=== PATIENT | female | born 1975 | race African-American/Black ===

== ENCOUNTER 2016-10-23 10:55 | Emergency (ER) | payer MEDICARE, MEDICAID ==
[~2016-10-23] VITALS: Ht 170.2 cm; Wt 135.6 kg
[~2016-10-23 10:55] MED LIST: ALBU17AE23 IH; ALPR.5T PO; ALPR0.254 PO; ALPR0.5T7 PO; AMLO10TA PO; AMLO10TA2 PO; AMLO10TA82 PO; AMOX-97 PO; ASCO1TAB39 PO; ASCO500T20 GT; AZIT-21 PO; CEPH500C PO; CIPR500T78 PO; CPR500T PO; CYCL10TA9 PO; DICL75TA2 PO; DOCU-143 PO; DOCU100C37 PO; ESCI10TA55 PO; FAMO-119 PO; FERR-57 PO; FERR160T6 PO; FERR325T74 PO; FLUO20CA25 PO; HYDR-1231 PO; HYDR-2997 PO; HYDR-3714 PO; HYDR-3812 PO; HYDR-690 PO; HYDR-700 PO; HYDR1CAP2 PO; HYDR25TA4 PO; HYOS0.1283 SL; IBP800T PO; IBUP-1780 PO; INSR1U SC; INSU100V30 SC; IPRA3AMP11 INH; KETO10TA PO; LACT1CAP61 PO; LEVO500T69 PO; LINA145C PO; LISI-552 PO; LISI10TA2 PO; LISI40TA PO; LORA10TA7 PO; MECL12.579 PO; MEDR10TA PO; MEDR10TA9 PO; MELA1TAB20 PO; MELO-195 PO; METF-144 PO; METO-270 PO; METO-272 PO; METO-333 PO; METR500T PO; MONT10TA24 PO; MTF500T PO; MTR500T PO; MULT-884 PO; MULT-985 PO; NAPR-243 PO; NAPR220T76 PO; OMEG1CAP24 PO; OXYC-197 PO; OXYC-202 PO; OXYC-465 PO; PANT40SU PO; PANT40TA3 PO; PNT40TEC PO; PRD10T PO; PRD20T PO; PROP1TAB77 PO; RANI150T90 PO; RT-ALBUINH INH; SUCR1ORA5 PO; SUCR1TAB36 PO; SULF-222 PO; SULF1TAB38 PO; TRAM50TA2 PO; TRM50T PO; [UNRECOGNIZED DRUG - OTHER] PO
--- OUTSIDE RECORDS SUMMARY | 2016-10-23 11:00 | XMS REPORT | Continuity of Care Document ---
Author Author [facility] Organization [facility] Address Unknown Phone Unavailable Care Team Providers Care After [employer] Program Director Name Role Phone MelonieAkash ho PCP [phone] Source Comments Some departments are not documenting in the electronic medical record. If you do not see the information that you expected, contact Release of Information in the Health Information Management department at [phone] for further assistance in locating additional records.[facility] Active Allergies and Adverse Reactions No Known Allergies Current Medications Prescription Sig. Disp. Refills Start End Date Status Date PROAIR HFA 90 INHALE 2 PUFFS BY MOUTH 6.7 g 5 01/10/20 Active mcg/actuation inhaler EVERY 4 HOURS NEEDED 12 escitalopram oxalate Take 10 mg by mouth Active (LEXAPRO) 10 mg tablet daily. hydrochlorothiazide Take 25 mg by mouth Active (HYDRODIURIL) 25 mg daily. tablet amLODIPine (NORVASC) 10 Take 10 mg by mouth Active mg tablet daily. ALPRAZolam (XANAX) 0.5 mg Take 0.5 mg by mouth Active tablet twice daily. metoprolol XL (TOPROL XL) Take 100 mg by mouth Active 100 mg tablet daily. traMADol (ULTRAM) 50 mg Take 50 mg by mouth every Active tablet 6 hours as needed for Pain. Lactobacillus rhamnosus Take 1 Cap by mouth as Active GG (LACTOBACILLUS directed daily with RHAMNOSUS (GG)) 15 breakfast. billion cell cpSP ascorbic acid (vitamin C) Take 500 mg by mouth Active (VITAMIN C) 500 mg tablet daily. ferrous sulfate (FEOSOL, Take 325 mg by mouth Active FEROSUL) 325 mg (65 mg twice daily. Take on an iron) tablet empty stomach at least 1 hour before or 2 hours after food. ibuprofen (ADVIL) 200 mg Take 800 mg by mouth Active tablet every 8 hours as needed for Pain. Take with food. senna (SENOKOT) 8.6 mg Take 2 Tabs by mouth Active tablet daily. polyethylene glycol 3350 Take 17 g by mouth daily Active (GLYCOLAX; MIRALAX) 17 as needed for gram/dose powder Constipation. oxyCODONE (ROXICODONE, Take 1-2 Tabs by mouth 30 Tab 0 05/19/20 Active OXY-IR) 5 mg tablet every 4 hours as needed 16 for Pain Indications: PAIN Earliest Fill Date: 05/19/16 Active Problems Problem Noted Date Iron deficiency anemia due to chronic blood loss 02/25/2016 Last Assessment & Plan: Mrs. Lujan is a 40 y.o. Female who presents today for follow-up of moderate microcytic iron deficiency anemia. She has a uterine fibroid that has been present for reportedly the past 20 years causing significant menstrual bleeding. She has postponed her hysterectomy with Dr. Steele to 05/18/16 and will need significant improvement on anemia prior to the surgery. She has been compliant with OTC ferrous sulfate 325mg/65mg PO TID, but experiencing significant constipation. Discussed with patient that she can reduce oral ferrous sulfate to BID and start stool softeners, Sennakot 8.6 gm BID and Miralax 17.5 gm once daily. Discussed that her ibuprofen intake may increase her risk of GI bleeding and recommend that she decreased to 800 twice daily if needed and increased Tramdol to every 8 hours. Hemoglobin mildly improved to 9.2 gm/dL and ferritin remained the same at 7 ng/dL. We will plan on administering iron dextran infusion in 1 week and re-assess in 10 days prior to scheduled surgery. However, it was discussed with patient that the peak effect on hemoglobin following iron dextran may take up to 4 weeks. Surgery may need to be delayed or patient may need a blood transfusion prior to surgery. Discussed indications and risks of iron dextran with patient, including hypersensitivity reaction. Von Willebrand disease was not detected in patient. Plan: 1. Iron dextran infusion 1,000 mg IV in 1 week. 2. Plan to re-evaluate labs in 10 days at patient's PCP office (patient lives in [place], [place]). 3. F/u with Dr. Steele to discuss if hemoglobin is adequate to proceed with surgery on 05/18. 4. Start sennakot 8.6 gm BID and miralax 17.5 gm once daily for constipation. 5. Decrease ibuprofen intake to 800 mg BID as needed and tramadol 50 mg every 8 hours for pain management. Patient agreed with plan of care and verbalized understanding. Morbid obesity due to excess calories (HCC) 02/04/2016 Tobacco use 02/04/2016 Dysmenorrhea 01/01/2016 Overview: Referred by Chava Loja Pt with monthly light periods but very painful Cramps and spotting that last for days after intercourse Hysteroscopy and GEA in Aug 2015 - polyp - no cancer TSH nl TVUS - uterus 10.5x7x7 with 'mass' 8x9x9, no mention of ovaries - office ultrasound 02/04/2016 Reports h/o laparoscopy aborted due to adhesions Discussed options of lupron, UAE, or hysterectomy Pt feels strongly that she desires RATLH/B salpingectomy Management impacted by obesity, smoking and abdominal adhesions. CBC 05/06 - referral to heme 02/19/2016 TVUS 02/17/16 - uterus 13cm, endo not seen well, with 8.3cm posterior fibroid, ovaries not seen 05/10/[address] Fernandez's office andJan 2016 D&C with benign tissue Did discuss BELAL at preop and pt okay with it - consent signed. 05/23/2016 S/p AMEE - benign 06/17/2016 Released back to activities Social History Tobacco Use Types Packs/Day Years Used Date Current Every Day Smoker Cigarettes 0.25 15 Smokeless Tobacco: Never Used Alcohol Use Drinks/Week oz/Week Comments Yes 1 Standard 0.6 drinks or equivalent Last Filed Vital Signs Vital Sign Reading Time Taken Blood Pressure 124/71 05/19/2016 7:10 AM CDT Pulse 65 05/19/2016 7:10 AM CDT Temperature 36.7 C (98.1 F) 05/19/2016 7:10 AM CDT Respiratory Rate 16 05/05/2016 11:29 AM CDT Height 1.707 m (5' 7.2") 06/16/2016 1:53 PM DUST MIXER Weight 139.663 kg (307 lb 14.4 06/16/2016 1:53 PM DUST MIXER oz) Body Mass Index 47.93 06/16/2016 1:53 PM DUST MIXER Oxygen Saturation 100% 05/19/2016 7:10 AM CDT Plan of Care Health Maintenance Due Date Last Done Comments Physical (Comprehensive) 1981 Exam Pertussis Vaccine 1985 Tetanus Vaccine 1991 Cervical Cancer Screening 1995 Influenza Vaccine 04/07/2016 Results from Last 3 Months Not on file
--- NOTE | 2016-10-23 11:11 | ED Upper Extremity ---
General Stated Complaint: SOB/L SIDE PAIN Source: patient Exam Limitations: no limitations History of Present Illness Time seen by provider: 11:10 Initial Comments To ER with reports of shortness of breath and left arm pain. This began about an hour or 2 ago while she was in the shower and she raised her left arm above her head. She had immediate pain to the medial aspect of the scapula on the left. This pain is worsened with any movement of the left arm at the shoulder and pain is worsened by deep breathing though she is not short of breath. Onset: just prior to arrival Severity: moderate Pain/Injury Location: left shoulder Method of Injury: twisted Modifying Factors: Worse With Movement Allergies and Home Medications Allergies Coded Allergies: No Known Drug Allergies (Verified , 07/06/15) Home Medications Alprazolam 0.5 Mg Tablet 0.5 MG PO BID (Reported) Amlodipine Besylate 10 Mg Tablet 10 MG PO DAILY (Reported) Escitalopram Oxalate 10 Mg Tablet 10 MG PO DAILY (Reported) Famotidine 20 Mg Tablet #30 20 MG PO BID Prescribed by: BRANDEN CARDONA on 04/19/16516 Hydrochlorothiazide 25 Mg Tablet 25 MG PO DAILY (Reported) Metoprolol Succinate 50 Mg Tab.er.24h 50 MG PO DAILY (Reported) Sucralfate 1 Gm Tablet #60 1 GM PO ACHS Prescribed by: BRANDEN CARDONA on 04/19/16516 Tramadol HCl 50 Mg Tablet #20 50-100 MG PO Q6H PRN PRN ABDOMINAL PAIN Prescribed by: BRANDEN CARDONA on 04/19/16516 Constitutional: see HPI EENTM: see HPI Respiratory: no symptoms reported Cardiovascular: see HPINo chest pain, No edema, No Hx of Intervention, No palpitations, No syncope, No vascular heart diseas, other (patient had a clean cardiac catheterization 2 years ago) Genitourinary: no symptoms reported Musculoskeletal: see HPI muscle pain Skin: no symptoms reported Psychiatric/Neurological: No Symptoms Reported Past Znwahcd-Pwxpux-Dhqanv Hx Patient Social History Former Smoker/When Quit: Aug 07, 2015 Recent Foreign Travel: No Contact w/Someone Who Travel: No Recent Hopitalizations: No Immunizations Up To Date Tetanus Booster (TDap): Unknown Date of Pneumonia Vaccine: Aug 07, 2013 Date of Influenza Vaccine: Apr 23, 2013 Seasonal Allergies Seasonal Allergies: No Surgeries HX Surgeries: Yes (uterine ablation, unsuccessful hysterectomy) Surgeries: Abdominal, Section, Orthopedic Respiratory Hx Respiratory Disorders: Yes (SARCOIDOSIS, TOBACCOISM) Respiratory Disorders: Asthma, Chronic Bronchitis Cardiovascular Hx Cardiac Disorders: Yes Cardiac Disorders: Coronary Artery Disease, Hypertension, Palpitations, Valvular Heart Disease Neurological Hx Neurological Disorders: No Reproductive System Hx Reproductive Disorders: Yes Female Reproductive Disorders: Menstrual Problems, Endometriosis, Ovarian Cyst Genitourinary Hx Genitourinary Disorders: No Gastrointestinal Hx Gastrointestinal Disorders: Yes (FATTY LIVER) Gastrointestinal Disorders: Gastroesophageal Reflux Musculoskeletal Hx Musculoskeletal Disorders: Yes (CHRONIC NECK PAIN, SARCOIDOSIS) Musculoskeletal Disorders: Arthritis Endocrine Hx Endocrine Disorders: Yes (BORDERLINE DIABETES DIET CONTROLLED; MORBID OBESITY) Endocrine Disorders: Diabetes, Non-Insulin dep HEENT HX ENT Disorders: No Cancer Hx Cancer: No Psychosocial Hx Psychiatric Problems: Yes Behavioral Health Disorders: Anxiety Integumentary HX Skin/Integumentary Disorder: No Blood Transfusions Hx Blood Disorders: Yes (ANEMIA) Adverse Reaction to a Blood Tr: No Family Medical History Significant Family History: Psychiatric Problems Family Medial History: Cancer 09 BROTHER, , Age:40's - 50, Onset:40's - 50 Cardiovascular disease 03 FATHER Diabetes mellitus 03 FATHER Family history: Diabetes mellitus 03 FATHER Family history: Hypertension 03 FATHER Hypertension 03 FATHER Physical Exam Vital Signs Vital Sign - Last 12Hours 10/23/16 11:10 Temp 98.7 Pulse 81 Resp 18 B/P 155/100 Pulse Ox 98 O2 Delivery Room Air Capillary Refill : General Appearance: WD/WN no apparent distress obese HEENT: PERRL/EOMI normal ENT inspection Neck: non-tender full range of motion Respiratory: normal breath sounds no respiratory distress no accessory muscle use Gastrointestinal: normal bowel sounds non tender soft Shoulder: normal inspection non-tender limited ROM pain Elbow/Forearm: normal inspection, non-tender Wrist: Yes normal inspection, Yes non-tender Hand: normal inspection, non-tender, no evidence of injury Neurologic/Psychiatric: alert normal mood/affect oriented x 3 Skin: normal color warm/dry Progress/Results/Core Measures Results/Orders Lab Results Laboratory Tests Test 10/23/16 11:36 Range/Units B-Type Natriuretic Peptide 14.2 <100.0 PG/ML Basophils # (Auto) 0.0 0.0-0.1 10^3/uL Basophils (%) (Auto) 0 0-10 % Eosinophils # (Auto) 0.2 0.0-0.3 10^3/uL Eosinophils (%) (Auto) 3 0-10 % Hematocrit 37 35-52 % Hemoglobin 11.3 L 11.5-16.0 G/DL Lymphocytes # (Auto) 1.6 1.0-4.0 X 10^3 Lymphocytes (%) (Auto) 33 12-44 % Mean Corpuscular Hemoglobin 24 L 25-34 PG Mean Corpuscular Hemoglobin Concent 31 L 32-36 G/DL Mean Corpuscular Volume 78 L 80-99 FL Mean Platelet Volume 8.2 7.4-10.4 FL Monocytes # (Auto) 0.5 0.0-1.0 X 10^3 Monocytes (%) (Auto) 9 0-12 % Neutrophils # (Auto) 2.6 1.8-7.8 X 10^3 Neutrophils (%) (Auto) 54 42-75 % Platelet Count 266 130-400 10^3/uL Red Blood Count 4.69 4.35-5.85 10^6/uL Red Cell Distribution Width 17.0 H 10.0-14.5 % Troponin I < 0.30 <0.30 NG/ML White Blood Count 4.8 4.3-11.0 10^3/uL My Orders Orders-MIQUEL CARDENAS APRN Chest Pa/Lat (2 View) (10/23/16 11:09) Ketorolac Injection (Toradol Injection) (10/23/16 11:15) Orphenadrine Injection (Norflex Injectio (10/23/16 11:15) Cbc With Automated Diff (10/23/16 11:31) BNP (10/23/16 11:31) Troponin I (10/23/16 11:31) Medications Given in ED Current Medications Medications Dose Ordered Sig/Beckie Route Start Time Stop Time Status Last Admin Dose Admin Ketorolac Tromethamine 60 mg ONCE ONCE IM 10/23/16 11:15 10/23/16 11:16 DC 10/23/16 11:18 60 MG Orphenadrine Citrate 60 mg ONCE ONCE IM 10/23/16 11:15 10/23/16 11:16 DC 10/23/16 11:18 60 MG Vital Signs/I&O Vital Sign - Last 12Hours 10/23/16 11:10 Temp 98.7 Pulse 81 Resp 18 B/P 155/100 Pulse Ox 98 O2 Delivery Room Air Diagnostic Imaging Diagonstic Imaging: Xray Plain Films/CT/US/NM/MRI: chest Comments NAME: JANEEN NICHOLAS I [facility] REC#: [id number] PT STATUS: REG ER : 1975 PHYSICIAN: MIQUEL CARDENAS APRN ADMIT DATE: 10/23/16/ER Draft Date of Exam:10/23/16 CHEST PA/LAT (2 VIEW) INDICATION: Shortness of air and left-sided chest pain. Pain radiates into the left scapular region. EXAMINATION: Two view chest dated 10/23/2016. COMPARISONS: 07/25/2016 FINDINGS: The heart is enlarged and there is pulmonary vascular congestion. There are increased interstitial markings throughout both lungs similar to prior imaging with findings of pulmonary edema noted. No focal consolidations or effusions are seen. No pneumothorax. IMPRESSION: 1. Pulmonary edema. Dictated on workstation # [id number] Dict: 10/23/16 1126 Trans: 10/23/16 1129 [id number] Interpreted by: LEONIDES YBARRA MD Electronically signed by: Departure Communication Progress Notes Radiology interpretation states pulmonary edema on chest x-ray. However this patient does not have pulmonary edema, they are seeing her sarcoidosis. Impression Impression: Primary Impression: Musculoskeletal back pain Disposition: 01 HOME, SELF-CARE Condition: Stable Departure-Patient Inst. Decision time for Depature: 12:23 Referrals: RALPH MCGEE DO (PCP/Family) Primary Care Physician Patient Instructions: Muscle Strain Add. Discharge Instructions: 1. Medication as directed 2. Return to ER for any worsening symptoms or other concerns such as fevers, shortness of breath or worsening pain Scripts Cyclobenzaprine HCl 5 Mg Tablet5 Mg PO BID PRN PAIN #14 TAB Prov:MIQUEL CARDENAS CARBONIZER 10/23/16 Naproxen (Naprosyn)500 Mg Vxtten403 Mg PO BID PRN PRN PAIN #14 TAB Prov:MIQUEL CARDENAS CARBONIZER 10/23/16 MIQUEL CRADENAS APRN Oct 23, 2016 11:11
[2016-10-23] MEDS ORDERED: KETOROLAC 60 MG/2 ML VIAL IM ONE (11:15)
[2016-10-23] MEDS ORDERED: ORPHENADRINE 60 MG/2 ML (NORFLEX) AMP IM ONE (11:15)
--- NOTE | 2016-10-23 11:30 | Diagnostic Imaging Report ---
INDICATION: Shortness of air and left-sided chest pain. Pain radiates into the left scapular region. EXAMINATION: Two view chest dated 10/23/2016. COMPARISONS: 07/25/2016 FINDINGS: The heart is enlarged and there is pulmonary vascular congestion. There are increased interstitial markings throughout both lungs similar to prior imaging with findings of pulmonary edema noted. No focal consolidations or effusions are seen. No pneumothorax. IMPRESSION: 1. Pulmonary edema. Dictated by: Dictated on workstation # [id number]
[2016-10-23 11:46] LABS: BASOPHILS % (AUTO) 0 % (0-10); EOSINOPHILS # (AUTO) 0.2 10^3/uL (0.0-0.3); EOSINOPHILS % (AUTO) 3 % (0-10); LYMPHOCYTES # (AUTO) 1.6 X 10^3 (1.0-4.0); LYMPHOCYTES % (AUTO) 33 % (12-44); MEAN CORPUSCULAR HEMOGLOBIN 24 PG (25-34); MEAN CORPUSCULAR HGB CONC 31 G/DL (32-36); MEAN CORPUSCULAR VOLUME 78 FL (80-99); MEAN PLATELET VOLUME 8.2 FL (7.4-10.4); MONOCYTES # (AUTO) 0.5 X 10^3 (0.0-1.0); MONOCYTES % (AUTO) 9 % (0-12); NEUTROPHILS # (AUTO) 2.6 X 10^3 (1.8-7.8); NEUTROPHILS % (AUTO) 54 % (42-75); PLATELET COUNT 266 10^3/uL (130-400); RED BLOOD COUNT 4.69 10^6/uL (4.35-5.85); WHITE BLOOD COUNT 4.8 10^3/uL (4.3-11.0)
[2016-10-23] MEDS ORDERED: CYCL5TAB PO ×2 (12:25→12:28)
[2016-10-23] MEDS ORDERED: NAPR500T PO ×2 (12:25→12:28)
[2016-10-23 12:26] VITALS: BP 145/76
== END 2016-10-23 12:26 | disposition home or self-care (01) ==
LOC: EDUNIT# 10:55 → ER 10:56
DX: M25.512 Pain in left shoulder (principal); D86.0 Sarcoidosis of lung; I10 Essential (primary) hypertension; E11.9 Type 2 diabetes mellitus without complications; I25.10 Atherosclerotic heart disease of native coronary artery without angina pectoris; Z79.899 Other long term (current) drug therapy
CPT/HCPCS: 36415; 71020; 83880; 84484; 85025; 96372

== ENCOUNTER → 2016-10-31 | Outpatient (CLI) | payer MEDICARE, MEDICAID ==
[~2016-10-31] MED LIST changes: +CYCL5TAB PO; +NAPR500T PO
--- NOTE | 2016-10-31 20:04 | Diagnostic Imaging Report ---
Bilateral screening mammogram The current study was also evaluated with a Computer Aided Detection (CAD) system. Indication: Screening. No current complaints stated on the questionnaire. COMPARISON: 10/02/15. FINDINGS: The breasts are composed of scattered fibroglandular densities. There are scattered benign calcifications. Allowing for technique and positional differences, no suspicious change is seen. IMPRESSION: No significant change. ACR BI-RADS Category 2: Benign findings. Result letter will be mailed to the patient. Note: At least 10% of breast cancer is not imaged by mammography. Dictated by: Dictated on workstation # [id number]
== END ==
LOC: RAD 10:32
PROVIDERS: ATTEND Family Medicine
DX: Z12.31 Encounter for screening mammogram for malignant neoplasm of breast (principal)
CPT/HCPCS: 77067

== ENCOUNTER 2017-01-09 17:36 | Emergency (ER) | payer MEDICARE, MEDICAID ==
[~2017-01-09] VITALS: Ht 167.6 cm; Wt 142.9 kg
[2017-01-09 18:05] LABS: BILIRUBIN,URINE NEGATIVE (NEGATIVE); KETONES,URINE NEGATIVE (NEGATIVE); LEUKOCYTE ESTERASE ,URINE 1+ (NEGATIVE); NITRITE,URINE NEGATIVE (NEGATIVE); PH,URINE 6 (5-9); PROTEIN,URINE 1+ (NEGATIVE); UROBILINOGEN,URINE NORMAL (NORMAL)
[2017-01-09 18:13] LABS: WBC,URINE 0-2 /HPF
[2017-01-09 18:37] LABS: BASOPHILS % (AUTO) 0 % (0-10); EOSINOPHILS # (AUTO) 0.2 10^3/uL (0.0-0.3); EOSINOPHILS % (AUTO) 3 % (0-10); LYMPHOCYTES # (AUTO) 1.6 X 10^3 (1.0-4.0); LYMPHOCYTES % (AUTO) 34 % (12-44); MEAN CORPUSCULAR HEMOGLOBIN 25 PG (25-34); MEAN CORPUSCULAR HGB CONC 31 G/DL (32-36); MEAN CORPUSCULAR VOLUME 81 FL (80-99); MEAN PLATELET VOLUME 8.8 FL (7.4-10.4); MONOCYTES # (AUTO) 0.4 X 10^3 (0.0-1.0); MONOCYTES % (AUTO) 9 % (0-12); NEUTROPHILS # (AUTO) 2.5 X 10^3 (1.8-7.8); NEUTROPHILS % (AUTO) 53 % (42-75); PLATELET COUNT 254 10^3/uL (130-400); RED CELL DISTRIBUTION WIDTH 16.2 % (10.0-14.5); WHITE BLOOD COUNT 4.7 10^3/uL (4.3-11.0)
[2017-01-09 18:49] LABS: ALANINE AMINOTRANSFERASE 16 U/L (0-55); ALBUMIN 3.6 G/DL (3.2-4.5); ANION GAP 8 MMOL/L (5-14); ASPARTATE AMINO TRANSFERASE 13 U/L (5-34); BILIRUBIN,TOTAL 0.3 MG/DL (0.1-1.0); BLOOD UREA NITROGEN 13 MG/DL (7-18); BUN/CREATININE RATIO 16; CALCIUM 9.2 MG/DL (8.5-10.1); CARBON DIOXIDE 28 MMOL/L (21-32); CHLORIDE 106 MMOL/L (98-107); CREATININE SERUM 0.82 MG/DL (0.60-1.30); GFR ESTIMATED > 60; GLUCOSE 147 MG/DL (70-105); LIPASE 10 U/L (8-78); POTASSIUM 3.9 MMOL/L (3.6-5.0); SODIUM 142 MMOL/L (135-145); TOTAL PROTEIN 7.5 G/DL (6.4-8.2)
--- NOTE | 2017-01-09 19:11 | Diagnostic Imaging Report ---
INDICATION: Left flank pain x2-3 weeks. TECHNIQUE: Supine and upright view of the abdomen 7:08 PM CORRELATION STUDY: None FINDINGS: Imaging of the abdomen demonstrates the bowel gas pattern to be unremarkable and without evidence for obstruction. No significant differential air-fluid levels. Mild severity fecal retention. No evidence for free air. No pathologic intraabdominal calcifications. Visualized lung bases relatively clear. IMPRESSION: 1. Mild severity fecal retention. Nonobstructive appearing bowel gas pattern. Dictated by: Dictated on workstation # [id number]
--- NOTE | 2017-01-09 19:24 | ED Abdominal Pain ---
General Chief Complaint: General Problems/Pain Stated Complaint: LT SIDE PAIN Nursing Triage Note: PT AMBULATED TO ROOM. PT STATES HER LEFT SIDE IS SORE. PT HAS BEEN TAKING MUSCLE RELAXERS THAT SHE WAS PRESCRIBED FOR A WEEK AND HAS HAD NO EFFECT SINCE. Sepsis Screen: No Definite Risk Source of Information: Patient Exam Limitations: No Limitations History of Present Illness Time Seen By Provider: 17:43 Initial Comments This 41-year-old woman presents to the emergency room with complaints of left flank pain for the past 3-4 weeks' intensifying over time. She denies any nausea, vomiting, diarrhea, fever, or dysuria. She comments urine has been dark. She also admits to constipation. She does not think her pain is related to constipation. Pain is rated as 7/10 and is worse with movements. Patient has a history of sarcoidosis. Patient also complains of a tender left submandibular gland started just today. Allergies and Home Medications Allergies Coded Allergies: No Known Drug Allergies (Verified , 07/06/15) Home Medications Alprazolam 0.5 Mg Tablet, 0.5 MG PO BID, (Reported) Amlodipine Besylate 10 Mg Tablet, 10 MG PO DAILY, (Reported) Cyclobenzaprine HCl 5 Mg Tablet, 5 MG PO BID PRN for PAIN, #14 . Prescribed by: MIQUEL CARDENAS on 10/23/16 1228 Escitalopram Oxalate 10 Mg Tablet, 10 MG PO DAILY, (Reported) Famotidine 20 Mg Tablet, 20 MG PO BID, #30 Ref 0 Prescribed by: BRANDEN ACRDONA on 04/19/16516 Hydrochlorothiazide 25 Mg Tablet, 25 MG PO DAILY, (Reported) Metoprolol Succinate 50 Mg Tab.er.24h, 50 MG PO DAILY, (Reported) Naproxen 500 Mg Tablet, 500 MG PO BID PRN PRN for PAIN, #14 . Prescribed by: MIQUEL CARDENAS on 10/23/16 1228 Sucralfate 1 Gm Tablet, 1 GM PO ACHS, #60 Ref 0 Prescribed by: BRANDEN CARDONA on 04/19/16516 Tramadol HCl 50 Mg Tablet, 50-100 MG PO Q6H PRN for ABDOMINAL PAIN, #20 Ref 0 Prescribed by: BRANDEN CARDONA on 04/19/16516 Review of Systems Constitutional: no symptoms reported EENTM: No Symptoms Reported Respiratory: No Symptoms Reported Cardiovascular: No Symptoms Reported Gastrointestinal: See HPI Genitourinary: No Symptoms Reported Musculoskeletal: no symptoms reported Skin: no symptoms reported Psychiatric/Neurological: No Symptoms Reported Endocrine: No Symptoms Reported Hematologic/Lymphatic: See HPI Past Fxctfga-Wooryy-Rdzfob Hx Patient Social History Alcohol Use: Denies Use Recreational Drug Use: No Smoking Status: Current Everyday Smoker Type Used: Cigarettes Former Smoker/When Quit: Aug 07, 2015 2nd Hand Smoke Exposure: Yes Recent Foreign Travel: No Contact w/Someone Who Travel: No Recent Infectious Disease Expo: No Recent Hopitalizations: No Immunizations Up To Date Tetanus Booster (TDap): Unknown Date of Pneumonia Vaccine: Aug 07, 2013 Date of Influenza Vaccine: Apr 23, 2013 Seasonal Allergies Seasonal Allergies: No Surgeries HX Surgeries: Yes (uterine ablation, unsuccessful hysterectomy) Surgeries: Abdominal (hernia), Section, Hysterectomy, Orthopedic ( left shoulder) Respiratory Hx Respiratory Disorders: Yes (SARCOIDOSIS, TOBACCOISM) Respiratory Disorders: Asthma, Chronic Bronchitis Cardiovascular Hx Cardiac Disorders: Yes Cardiac Disorders: Coronary Artery Disease, Hypertension, Palpitations, Valvular Heart Disease Neurological Hx Neurological Disorders: No Reproductive System Hx Reproductive Disorders: Yes Female Reproductive Disorders: Menstrual Problems, Endometriosis, Ovarian Cyst Genitourinary Hx Genitourinary Disorders: No Gastrointestinal Hx Gastrointestinal Disorders: Yes (FATTY LIVER) Gastrointestinal Disorders: Gastroesophageal Reflux Musculoskeletal Hx Musculoskeletal Disorders: Yes (CHRONIC NECK PAIN, SARCOIDOSIS) Musculoskeletal Disorders: Arthritis Endocrine Hx Endocrine Disorders: Yes (BORDERLINE DIABETES DIET CONTROLLED; MORBID OBESITY) Endocrine Disorders: Diabetes, Non-Insulin dep HEENT HX ENT Disorders: No Cancer Hx Cancer: No Psychosocial Hx Psychiatric Problems: Yes Behavioral Health Disorders: Anxiety Integumentary HX Skin/Integumentary Disorder: No Blood Transfusions Hx Blood Disorders: Yes (ANEMIA) Adverse Reaction to a Blood Tr: No Family Medical History Significant Family History: Psychiatric Problems Family Medial History: Cancer 09 BROTHER, , Age:40's - 50, Onset:40's - 50 Cardiovascular disease 03 FATHER Diabetes mellitus 03 FATHER Family history: Diabetes mellitus 03 FATHER Family history: Hypertension 03 FATHER Hypertension 03 FATHER Physical Exam Vital Signs VS - Last 72 Hours, by Label 01/09/17 01/09/17 18:03 19:37 Temp 98.1 97.9 Pulse 89 83 Resp 16 20 B/P (MAP) 140/103 Pulse Ox 97 97 O2 Delivery Room Air Capillary Refill : Less Than 3 Seconds General Appearance: WD/WN, no apparent distress, obese HEENT: PERRL/EOMI, normal ENT inspection, pharynx normal, TM abnormal (R) ( mildly erythematous) Neck: supple, lymphadenopathy (L) (submandibular small tender lymph node) Respiratory: lungs clear, normal breath sounds, no respiratory distress, no accessory muscle use Cardiovascular: regular rate, rhythm, no edema, no murmur Gastrointestinal: normal bowel sounds, soft, tenderness (left flank) Extremities: normal inspection, no pedal edema Neurologic/Psychiatric: semi driver II-XII nml as tested, no motor/sensory deficits, alert, normal mood/affect, oriented x 3 Skin: normal color, warm/dry Progress/Results/Core Measures Results/Orders Lab Results Laboratory Tests Test 01/09/17 17:56 01/09/17 18:18 Range/Units Urine Color YELLOW Urine Clarity CLEAR Urine pH 6 5-9 Urine Specific [place] 1.020 1.016-1.022 Urine Protein 1+ H NEGATIVE Urine Glucose (UA) NEGATIVE NEGATIVE Urine Ketones NEGATIVE NEGATIVE Urine Nitrite NEGATIVE NEGATIVE Urine Bilirubin NEGATIVE NEGATIVE Urine Urobilinogen NORMAL NORMAL MG/DL Urine Leukocyte Esterase 1+ H NEGATIVE Urine RBC (Auto) 1+ H NEGATIVE Urine RBC 0-2 /HPF Urine WBC 0-2 /HPF Urine Squamous Epithelial Cells 2-5 /HPF Urine Crystals NONE /LPF Urine Bacteria NONE /HPF Urine Casts NONE /LPF Urine Mucus NEGATIVE /LPF Urine Culture Indicated NO White Blood Count 4.7 4.3-11.0 10^3/uL Red Blood Count 4.50 4.35-5.85 10^6/uL Hemoglobin 11.4 L 11.5-16.0 G/DL Hematocrit 36 35-52 % Mean Corpuscular Volume 81 80-99 FL Mean Corpuscular Hemoglobin 25 25-34 PG Mean Corpuscular Hemoglobin Concent 31 L 32-36 G/DL Red Cell Distribution Width 16.2 H 10.0-14.5 % Platelet Count 254 130-400 10^3/uL Mean Platelet Volume 8.8 7.4-10.4 FL Neutrophils (%) (Auto) 53 42-75 % Lymphocytes (%) (Auto) 34 12-44 % Monocytes (%) (Auto) 9 0-12 % Eosinophils (%) (Auto) 3 0-10 % Basophils (%) (Auto) 0 0-10 % Neutrophils # (Auto) 2.5 1.8-7.8 X 10^3 Lymphocytes # (Auto) 1.6 1.0-4.0 X 10^3 Monocytes # (Auto) 0.4 0.0-1.0 X 10^3 Eosinophils # (Auto) 0.2 0.0-0.3 10^3/uL Basophils # (Auto) 0.0 0.0-0.1 10^3/uL Sodium Level 142 135-145 MMOL/L Potassium Level 3.9 3.6-5.0 MMOL/L Chloride Level 106 98-107 MMOL/L Carbon Dioxide Level 28 21-32 MMOL/L Anion Gap 8 5-14 MMOL/L Blood Urea Nitrogen 13 7-18 MG/DL Creatinine 0.82 0.60-1.30 MG/DL Estimat Glomerular Filtration Rate > 60 BUN/Creatinine Ratio 16 Glucose Level 147 H 70-105 MG/DL Calcium Level 9.2 8.5-10.1 MG/DL Total Bilirubin 0.3 0.1-1.0 MG/DL Aspartate Amino Transf (AST/SGOT) 13 5-34 U/L Alanine Aminotransferase (ALT/SGPT) 16 0-55 U/L Alkaline Phosphatase 50 40-136 U/L Total Protein 7.5 6.4-8.2 G/DL Albumin 3.6 3.2-4.5 G/DL Lipase 10 8-78 U/L My Orders Orders - EDILBERTO SANTIAGO MD Ua Culture If Indicated (01/09/17 17:43) Saline Lock/Iv-Start (01/09/17 18:27) Cbc With Automated Diff (01/09/17 18:27) Comprehensive Metabolic Panel (01/09/17 18:27) Lipase (01/09/17 18:27) Abdomen, Flat & Upright/Decub (01/09/17 18:27) Ketorolac Injection (Toradol Injection) (01/09/17 19:30) Vital Signs/I&O Vital Sign - Last 12Hours 01/09/17 01/09/17 18:03 19:37 Temp 98.1 97.9 Pulse 89 83 Resp 16 20 B/P (MAP) 140/103 Pulse Ox 97 97 O2 Delivery Room Air Blood Pressure Mean: 115 Progress Note : Progress Note Patient's workup was relatively unremarkable. X-ray did show fecal retention. CT was discussed with patient but ultimately we decided against CT as patient has had numerous CTs in the past. We are trying to limit her radiation exposure. Patient is going to treat constipation and monitor symptoms. Diagnostic Imaging Diagonstic Imaging: Xray Plain Films/CT/US/NM/MRI: abdomen Comments KUB and upright viewed by me and report reviewed. See report below: NAME: JANEEN NICHOLAS I [facility] REC#: [id number] PT STATUS: REG ER : 1975 PHYSICIAN: EDILBERTO SANTIAGO MD ADMIT DATE: 01/09/17/ER Draft Date of Exam:01/09/17 ABDOMEN, FLAT UPRIGHT/DECUB INDICATION: Left flank pain x2-3 weeks. TECHNIQUE: Supine and upright view of the abdomen 7:08 PM CORRELATION STUDY: None FINDINGS: Imaging of the abdomen demonstrates the bowel gas pattern to be unremarkable and without evidence for obstruction. No significant differential air-fluid levels. Mild severity fecal retention. No evidence for free air. No pathologic intraabdominal calcifications. Visualized lung bases relatively clear. IMPRESSION: 1. Mild severity fecal retention. Nonobstructive appearing bowel gas pattern. Dictated on workstation # [id number] Dict: 01/09/171904 Trans: 01/09/171910 [id number] Interpreted by: ALEXIS STREETER DO Departure Impression Impression: Primary Impression: Left flank pain Additional Impression: Constipation Qualified Codes: K59.00 - Constipation, unspecified Disposition: 01 HOME, SELF-CARE Condition: Stable Departure-Patient Inst. Decision time for Depature: 19:23 Referrals: RALPH MCGEE DO (PCP/Family) Primary Care Physician Patient Instructions: Acute Abdomen (Belly Pain), Clear Liquid Diet, Constipation in Adults Add. Discharge Instructions: Consume only a clear liquid diet until a good bowel movement is produced. Then gradually advance your diet with small quantities of food as tolerated. Eat a diet high in fiber including fruits, vegetables, and whole grains. Avoid excessive meats, cheeses, fast foods, and processed foods. Use MiraLAX ( generic is polyethylene glycol) 2 or 3 times daily until pain and constipation resolves. You may also choose to use a Dulcolax suppository if necessary. Return to the ER symptoms worsen. You may use Tylenol (acetaminophen) up to 1000 mg every 6 hours as needed for pain and/or ibuprofen up to 600 mg every 6 hours as needed for pain. Follow-up with your primary care provider later this week. All discharge instructions reviewed with patient and/or family. Voiced understanding. EDILBERTO SANTIAGO MD Jan 09, 2017 19:24
[2017-01-09] MEDS ORDERED: KETOROLAC 30 MG/ML VIAL IVP ONE (19:30)
[2017-01-09 19:37] VITALS: BP 151/101
== END 2017-01-09 19:37 | disposition home or self-care (01) ==
LOC: EDUNIT# 17:36 → ER 17:38
DX: K59.00 Constipation, unspecified (principal); K21.9 Gastro-esophageal reflux disease without esophagitis; E11.9 Type 2 diabetes mellitus without complications; F17.210 Nicotine dependence, cigarettes, uncomplicated; Z98.890 Other specified postprocedural states
CPT/HCPCS: 36415; 74020; 80053; 81000; 83690; 85025

== ENCOUNTER 2017-03-04 20:28 | Emergency (ER) | payer MEDICARE, MEDICAID ==
[~2017-03-04] VITALS: Ht 172.7 cm; Wt 140.6 kg
--- NOTE | 2017-03-04 21:52 | Diagnostic Imaging Report ---
INDICATION: Dizziness and weakness and chills PA and lateral chest obtained at 9:51 p.m. and compared to 10/23/16. Heart is borderline in size. There is mild central vascular prominence without edema. There is no consolidation or pneumothorax or pleural fluid. The appearance of the chest has not changed compared to the prior study. IMPRESSION: No acute process in the chest. Borderline heart size with mild central vascular prominence without edema or infiltrate. Dictated by: Dictated on workstation # [id number]
[2017-03-04 22:06] LABS: BASOPHILS % (AUTO) 0 % (0-10); EOSINOPHILS # (AUTO) 0.1 10^3/uL (0.0-0.3); EOSINOPHILS % (AUTO) 2 % (0-10); LYMPHOCYTES # (AUTO) 1.2 X 10^3 (1.0-4.0); LYMPHOCYTES % (AUTO) 46 % (12-44); MEAN CORPUSCULAR HEMOGLOBIN 26 PG (25-34); MEAN CORPUSCULAR HGB CONC 32 G/DL (32-36); MEAN CORPUSCULAR VOLUME 82 FL (80-99); MEAN PLATELET VOLUME 8.9 FL (7.4-10.4); MONOCYTES # (AUTO) 0.3 X 10^3 (0.0-1.0); MONOCYTES % (AUTO) 12 % (0-12); NEUTROPHILS % (AUTO) 39 % (42-75); PLATELET COUNT 201 10^3/uL (130-400); RED BLOOD COUNT 4.61 10^6/uL (4.35-5.85); RED CELL DISTRIBUTION WIDTH 15.4 % (10.0-14.5); WHITE BLOOD COUNT 2.5 10^3/uL (4.3-11.0)
[2017-03-04 22:23] LABS: ALANINE AMINOTRANSFERASE 16 U/L (0-55); ALBUMIN 3.6 GM/DL (3.2-4.5); ANION GAP 8 MMOL/L (5-14); ASPARTATE AMINO TRANSFERASE 13 U/L (5-34); BILIRUBIN,TOTAL 0.4 MG/DL (0.1-1.0); BLOOD UREA NITROGEN 9 MG/DL (7-18); BUN/CREATININE RATIO 13; CALCIUM 8.5 MG/DL (8.5-10.1); CARBON DIOXIDE 27 MMOL/L (21-32); CHLORIDE 102 MMOL/L (98-107); CREATININE SERUM 0.71 MG/DL (0.60-1.30); GFR ESTIMATED > 60; GLUCOSE 133 MG/DL (70-105); POTASSIUM 3.3 MMOL/L (3.6-5.0); SODIUM 137 MMOL/L (135-145); TOTAL PROTEIN 7.6 GM/DL (6.4-8.2)
[2017-03-04 23:06] LABS: BILIRUBIN,URINE NEGATIVE (NEGATIVE); KETONES,URINE NEGATIVE (NEGATIVE); LEUKOCYTE ESTERASE ,URINE 1+ (NEGATIVE); NITRITE,URINE NEGATIVE (NEGATIVE); PH,URINE 6 (5-9); PROTEIN,URINE 1+ (NEGATIVE); UROBILINOGEN,URINE 1 MG/DL (NORMAL)
[2017-03-04 23:22] LABS: SQUAMOUS EPITHELIAL CELL,UR 25-50 /HPF; WBC,URINE 0-2 /HPF
[2017-03-04] MEDS ORDERED: KCL 10 MEQ TAB (MICRO K) PO ONE (23:30)
--- NOTE | 2017-03-04 23:34 | ED General ---
General Chief Complaint: General Problems/Pain Stated Complaint: CHILLS,LIGHT-HEADED Nursing Triage Note: patient reports chills, headache, back pain x 2 days Nursing Sepsis Screen: No Definite Risk Source of Information: Patient Exam Limitations: No Limitations History of Present Illness Time Seen by Provider: 21:05 Initial Comments This 41-year-old woman presents to the emergency room with vague complaints of not feeling well. She describes sensations of lightheadedness, chills, headache , myalgia, mild nausea, fatigue with walking, and feeling "woozy" when standing. She admits to not drinking water as well as she should. She also has soreness on the left lateral chest wall. She denies any cough, fever, sinus symptoms, or urinary symptoms. The chest pain is positional and not worse with exertion. Symptoms have been present for 2 days. Patient has a history of sarcoidosis, hypertension, diabetes, and anxiety. She complains of a tender lymph node beneath the right ear. Allergies and Home Medications Allergies Coded Allergies: No Known Drug Allergies (Verified , 07/06/15) Home Medications Alprazolam 0.5 Mg Tablet, 0.5 MG PO BID, (Reported) Amlodipine Besylate 10 Mg Tablet, 10 MG PO DAILY, (Reported) Escitalopram Oxalate 10 Mg Tablet, 10 MG PO DAILY, (Reported) Famotidine 20 Mg Tablet, 20 MG PO BID, #30 Ref 0 Prescribed by: BRANDEN CARDONA on 04/19/16516 Hydrochlorothiazide 25 Mg Tablet, 25 MG PO DAILY, (Reported) Metoprolol Succinate 50 Mg Tab.er.24h, 50 MG PO DAILY, (Reported) Sucralfate 1 Gm Tablet, 1 GM PO ACHS, #60 Ref 0 Prescribed by: BRANDEN CARDONA on 04/19/16516 Tramadol HCl 50 Mg Tablet, 50-100 MG PO Q6H PRN for ABDOMINAL PAIN, #20 Ref 0 Prescribed by: BRANDEN CARDONA on 04/19/16516 Constitutional: see HPI EENTM: no symptoms reported Respiratory: no symptoms reported Cardiovascular: no symptoms reported Gastrointestinal: see HPI Genitourinary: no symptoms reported : No Musculoskeletal: see HPI Skin: no symptoms reported Psychiatric/Neurological: See HPI Hematologic/Lymphatic: See HPI Past Ynpzomu-Ptifoc-Pngnxh Hx Patient Social History Alcohol Use: Denies Use Recreational Drug Use: No Smoking Status: Current Everyday Smoker Type Used: Cigarettes Former Smoker/When Quit: Aug 07, 2015 2nd Hand Smoke Exposure: Yes Recent Foreign Travel: No Contact w/Someone Who Travel: No Recent Infectious Disease Expo: No Recent Hopitalizations: No Immunizations Up To Date Tetanus Booster (TDap): Unknown Date of Pneumonia Vaccine: Aug 07, 2013 Date of Influenza Vaccine: Apr 23, 2013 Seasonal Allergies Seasonal Allergies: No Surgeries HX Surgeries: Yes (uterine ablation, unsuccessful hysterectomy) Surgeries: Abdominal, Section, Hysterectomy, Orthopedic Respiratory Hx Respiratory Disorders: Yes (SARCOIDOSIS, TOBACCOISM) Respiratory Disorders: Asthma, Chronic Bronchitis Cardiovascular Hx Cardiac Disorders: Yes Cardiac Disorders: Coronary Artery Disease, Hypertension, Palpitations, Valvular Heart Disease Neurological Hx Neurological Disorders: No Reproductive System Hx Reproductive Disorders: Yes Female Reproductive Disorders: Menstrual Problems, Endometriosis, Ovarian Cyst Genitourinary Hx Genitourinary Disorders: No Gastrointestinal Hx Gastrointestinal Disorders: Yes (FATTY LIVER) Gastrointestinal Disorders: Gastroesophageal Reflux Musculoskeletal Hx Musculoskeletal Disorders: Yes (CHRONIC NECK PAIN, SARCOIDOSIS) Musculoskeletal Disorders: Arthritis Endocrine Hx Endocrine Disorders: Yes (BORDERLINE DIABETES DIET CONTROLLED; MORBID OBESITY) Endocrine Disorders: Diabetes, Non-Insulin dep HEENT HX ENT Disorders: No Cancer Hx Cancer: No Psychosocial Hx Psychiatric Problems: Yes Behavioral Health Disorders: Anxiety Integumentary HX Skin/Integumentary Disorder: No Blood Transfusions Hx Blood Disorders: Yes (ANEMIA) Adverse Reaction to a Blood Tr: No Family Medical History Significant Family History: Psychiatric Problems Family Medial History: Cancer 09 BROTHER, , Age:40's - 50, Onset:40's - 50 Cardiovascular disease 03 FATHER Diabetes mellitus 03 FATHER Family history: Diabetes mellitus 03 FATHER Family history: Hypertension 03 FATHER Hypertension 03 FATHER Physical Exam Vital Signs Vital Sign - Last 12Hours 03/04/17 20:43 Temp 97.5 Pulse 91 Resp 18 B/P (MAP) 143/111 Pulse Ox 96 Capillary Refill : Less Than 3 Seconds General Appearance: No Apparent Distress, WD/WN, Obese HEENT: PERRL/EOMI, Pharynx Normal, TM Abnormal (L) (retracted), TM Abnormal (R ) (retracted) Neck: Normal Inspection, Supple Respiratory: Lungs Clear, Normal Breath Sounds, No Accessory Muscle Use, No Respiratory Distress, Other (left lateral posterior chest wall tender to palpation) Cardiovascular: Regular Rate, Rhythm, No Edema, No Murmur Gastrointestinal: Normal Bowel Sounds, Non Tender, Soft Extremity: Normal Inspection, No Pedal Edema Neurologic/Psychiatric: Alert, Oriented x3, No Motor/Sensory Deficits, Normal Mood/Affect, check examiner II-XII Norm as Tested Skin: Normal Color, Warm/Dry Lymphatic: Other (tender right auricular lymph node palpable) Progress/Results/Core Measures Results/Orders Lab Results Laboratory Tests Test 03/04/17 21:57 03/04/17 22:56 Range/Units White Blood Count 2.5 L 4.3-11.0 10^3/uL Red Blood Count 4.61 4.35-5.85 10^6/uL Hemoglobin 11.9 11.5-16.0 G/DL Hematocrit 38 35-52 % Mean Corpuscular Volume 82 80-99 FL Mean Corpuscular Hemoglobin 26 25-34 PG Mean Corpuscular Hemoglobin Concent 32 32-36 G/DL Red Cell Distribution Width 15.4 H 10.0-14.5 % Platelet Count 201 130-400 10^3/uL Mean Platelet Volume 8.9 7.4-10.4 FL Neutrophils (%) (Auto) 39 L 42-75 % Lymphocytes (%) (Auto) 46 H 12-44 % Monocytes (%) (Auto) 12 0-12 % Eosinophils (%) (Auto) 2 0-10 % Basophils (%) (Auto) 0 0-10 % Neutrophils # (Auto) 1.0 L 1.8-7.8 X 10^3 Lymphocytes # (Auto) 1.2 1.0-4.0 X 10^3 Monocytes # (Auto) 0.3 0.0-1.0 X 10^3 Eosinophils # (Auto) 0.1 0.0-0.3 10^3/uL Basophils # (Auto) 0.0 0.0-0.1 10^3/uL Sodium Level 137 135-145 MMOL/L Potassium Level 3.3 L 3.6-5.0 MMOL/L Chloride Level 102 98-107 MMOL/L Carbon Dioxide Level 27 21-32 MMOL/L Anion Gap 8 5-14 MMOL/L Blood Urea Nitrogen 9 7-18 MG/DL Creatinine 0.71 0.60-1.30 MG/DL Estimat Glomerular Filtration Rate > 60 BUN/Creatinine Ratio 13 Glucose Level 133 H 70-105 MG/DL Calcium Level 8.5 8.5-10.1 MG/DL Total Bilirubin 0.4 0.1-1.0 MG/DL Aspartate Amino Transf (AST/SGOT) 13 5-34 U/L Alanine Aminotransferase (ALT/SGPT) 16 0-55 U/L Alkaline Phosphatase 55 40-136 U/L C-Reactive Protein High Sensitivity 1.30 H 0.00-0.50 MG/DL Total Protein 7.6 6.4-8.2 GM/DL Albumin 3.6 3.2-4.5 GM/DL Urine Color YELLOW Urine Clarity CLEAR Urine pH 6 5-9 Urine Specific [place] 1.020 1.016-1.022 Urine Protein 1+ H NEGATIVE Urine Glucose (UA) NEGATIVE NEGATIVE Urine Ketones NEGATIVE NEGATIVE Urine Nitrite NEGATIVE NEGATIVE Urine Bilirubin NEGATIVE NEGATIVE Urine Urobilinogen 1 NORMAL MG/DL Urine Leukocyte Esterase 1+ H NEGATIVE Urine RBC (Auto) 1+ H NEGATIVE Urine RBC RARE /HPF Urine WBC 0-2 /HPF Urine Squamous Epithelial Cells 25-50 H /HPF Urine Renal Epithelial Cells NONE /HPF Urine Crystals NONE /LPF Urine Bacteria NEGATIVE /HPF Urine Casts NONE /LPF Urine Mucus NEGATIVE /LPF Urine Culture Indicated NO My Orders Orders - EDILBERTO SANTIAGO MD Cbc With Automated Diff (03/04/17 21:14) Comprehensive Metabolic Panel (03/04/17 21:14) Hs C Reactive Protein (03/04/17 21:14) Ua Culture If Indicated (03/04/17 21:14) Chest Pa/Lat (2 View) (03/04/17 21:14) Saline Lock/Iv-Start (03/04/17 21:14) Potassium Chloride (Tablet) (Klor Con Ta (03/04/17 23:30) Medications Given in ED Current Medications Medications Dose Ordered Sig/Beckie Route Start Time Stop Time Status Last Admin Dose Admin Potassium Chloride 20 meq ONCE ONCE PO 03/04/17 23:30 03/04/17 23:31 DC 03/04/17 23:48 20 MEQ Vital Signs/I&O Vital Sign - Last 12Hours 03/04/17 03/04/17 20:43 23:50 Temp 97.5 97.5 Pulse 91 91 Resp 18 18 B/P (MAP) 143/111 Pulse Ox 96 96 Blood Pressure Mean: 122 Progress Note : Progress Note Potassium was slightly low and replaced orally. Workup was otherwise unremarkable. WBC distribution demonstrates a lymphocytic predominance. Patient likely has a viral illness. Diagnostic Imaging Diagonstic Imaging: Xray Plain Films/CT/US/NM/MRI: chest Comments Chest x-ray viewed by me and report reviewed. See report below: NAME: JANEEN NICHOLAS I [facility] REC#: [id number] PT STATUS: REG ER : 1975 PHYSICIAN: EDILBERTO SANTIAGO MD ADMIT DATE: 03/04/17/ER Signed Date of Exam: 03/04/17 CHEST PA/LAT (2 VIEW) INDICATION: Dizziness and weakness and chills PA and lateral chest obtained at 9:51 p.m. and compared to 10/23/16. Heart is borderline in size. There is mild central vascular prominence without edema. There is no consolidation or pneumothorax or pleural fluid. The appearance of the chest has not changed compared to the prior study. IMPRESSION: No acute process in the chest. Borderline heart size with mild central vascular prominence without edema or infiltrate. Dictated by: Dictated on workstation # [id number] Dict: 03/04/172146 Trans: 03/04/172205 Interpreted by: JOSEPHINE VELEZ MD Electronically signed by: JOSEPHINE VELEZ MD 03/04/172205 Departure Impression Impression: Primary Impression: Viral illness Additional Impression: Chest wall pain Disposition: 01 HOME, SELF-CARE Condition: Improved Departure-Patient Inst. Decision time for Depature: 23:25 Referrals: RALPH MCGEE DO (PCP/Family) Primary Care Physician Patient Instructions: Chest Pain That Is Not Caused by the Heart (DC) Add. Discharge Instructions: You may take ibuprofen up to 600 mg every 6 hours as needed for pain. Add Tylenol (acetaminophen) up to 1000 mg every 6 hours as needed for additional pain relief. Drink plenty of clear liquids. Your lab work would suggest that you have a viral illness. Hopefully you will improve over the next few days. Return to care if not improving over the next couple of days or if symptoms worsen. Please follow-up with your primary care provider next week. All discharge instructions reviewed with patient and/or family. Voiced understanding. EDILBERTO SANTIAGO MD Mar 04, 2017 23:34
[2017-03-04 23:50] VITALS: BP 138/98
== END 2017-03-04 23:49 | disposition home or self-care (01) ==
LOC: EDUNIT# 20:28 → ER 20:29
DX: B34.9 Viral infection, unspecified (principal); R07.89 Other chest pain; J45.909 Unspecified asthma, uncomplicated; I25.10 Atherosclerotic heart disease of native coronary artery without angina pectoris; I10 Essential (primary) hypertension; K21.9 Gastro-esophageal reflux disease without esophagitis; M19.90 Unspecified osteoarthritis, unspecified site; D86.9 Sarcoidosis, unspecified; E66.01 Morbid (severe) obesity due to excess calories; E11.9 Type 2 diabetes mellitus without complications; F41.9 Anxiety disorder, unspecified; D64.9 Anemia, unspecified; F17.210 Nicotine dependence, cigarettes, uncomplicated; Z82.49 Family history of ischemic heart disease and other diseases of the circulatory system; Z68.42 Body mass index [BMI] 45.0-49.9, adult; Z90.710 Acquired absence of both cervix and uterus; Z87.59 Personal history of other complications of pregnancy, childbirth and the puerperium
CPT/HCPCS: 36415; 71020; 80053; 81000; 85025; 86141; 99283

== ENCOUNTER → 2017-03-14 | Outpatient (CLI) | payer MEDICARE, MEDICAID ==
[~2017-03-14] MED LIST changes: +CATHETER FLUSH 10 ML SYR IV PRN; +IOHEXOL 350 MG/ML 150 ML (OMNIPAQUE 350) VIAL IV ONE
[2017-03-14 07:46] LABS: BASOPHILS # (AUTO) 0.2 10^3/uL (0.0-0.1); BASOPHILS % (AUTO) 4 % (0-10); EOSINOPHILS # (AUTO) 0.2 10^3/uL (0.0-0.3); EOSINOPHILS % (AUTO) 4 % (0-10); LYMPHOCYTES # (AUTO) 1.6 X 10^3 (1.0-4.0); LYMPHOCYTES % (AUTO) 35 % (12-44); MEAN CORPUSCULAR HEMOGLOBIN 26 PG (25-34); MEAN CORPUSCULAR HGB CONC 32 G/DL (32-36); MEAN CORPUSCULAR VOLUME 82 FL (80-99); MEAN PLATELET VOLUME 8.5 FL (7.4-10.4); MONOCYTES # (AUTO) 0.7 X 10^3 (0.0-1.0); MONOCYTES % (AUTO) 15 % (0-12); NEUTROPHILS # (AUTO) 1.9 X 10^3 (1.8-7.8); NEUTROPHILS % (AUTO) 42 % (42-75); PLATELET COUNT 265 10^3/uL (130-400); RED BLOOD COUNT 4.35 10^6/uL (4.35-5.85); WHITE BLOOD COUNT 4.4 10^3/uL (4.3-11.0)
[2017-03-14 08:07] LABS: ALANINE AMINOTRANSFERASE 15 U/L (0-55); ALBUMIN 3.5 GM/DL (3.2-4.5); ANION GAP 8 MMOL/L (5-14); ASPARTATE AMINO TRANSFERASE 14 U/L (5-34); BILIRUBIN,TOTAL 0.4 MG/DL (0.1-1.0); BLOOD UREA NITROGEN 13 MG/DL (7-18); BUN/CREATININE RATIO 19; CARBON DIOXIDE 24 MMOL/L (21-32); CHLORIDE 108 MMOL/L (98-107); CREATININE SERUM 0.69 MG/DL (0.60-1.30); GFR ESTIMATED > 60; GLUCOSE 134 MG/DL (70-105); LACTATE DEHYDROGENASE 177 U/L (125-220); POTASSIUM 3.8 MMOL/L (3.6-5.0); SODIUM 140 MMOL/L (135-145); TOTAL PROTEIN 7.4 GM/DL (6.4-8.2)
[2017-03-14 09:08] LABS: ANISOCYTOSIS SLIGHT; EOSINOPHILS % (MANUAL) 2 %; LYMPHOCYTES % (MANUAL) 35 %; NEUTROPHILS % (MANUAL) 49 %; REACTIVE LYMPHOCYTES 6 %
--- NOTE | 2017-03-14 10:17 | Diagnostic Imaging Report ---
CT scan of the neck, chest, abdomen, and pelvis performed with intravenous contrast. INDICATION: Enlarged lymph nodes in the neck, axilla, and groin. History of inflammatory disorder. Patient is not clear if it is sarcoidosis or a form of lupus based on technologist 's notes. 125 mL of Omnipaque 350 administered intravenously. FINDINGS: CT neck: There are mildly enlarged lymph nodes including intraparotid nodes such as 1.3-cm node in the right parotid gland and less prominent intraparotid lymph nodes on the left side. There are submandibular lymph nodes measuring also 1.7 cm on the right side and 1.0 cm on the left. A submental lymph node measuring 1.0 cm is also seen. All these measurements are obtained in short axis. There are multiple borderline lymph nodes also seen in the level II and level III cervical chain bilaterally. There is thickening seen in the adenoids in a symmetric fashion with no definite focal mass. Mild thickening in the oropharyngeal tonsils also seen. The carotid and jugular vascular enhancement is grossly unremarkable. There is no abnormal opacification seen in the visualized portions of the paranasal sinuses. The osseous structures appear grossly unremarkable. CT chest: There are bilateral mildly enlarged hilar lymph nodes measuring 2.8 x 1.0 cm in the left hilum and 1.4 cm in short axis in the right hilum. When compared to CTA of the chest from 06/23/2013, this is improved and at that time larger lymph nodes were seen in the brandi and mediastinum. In the mediastinum there are borderline and minimally enlarged lymph nodes such as a prevascular lymph node measuring up 1.1 cm in short axis. In the axilla there are mild enlarged lymph nodes up to 1.3 cm on the right and 1.5 cm on the left. This is similar to the previous exam. The heart size is normal. There is a very minimal pericardial effusion. No pleural effusion. The lungs demonstrate areas of focal groundglass opacity and fibrotic change similar to 2013 exam in the left upper lobe, the left lower lobe, and in the right lower lobe. There are multiple subpleural pulmonary nodules seen up to 8 mm in size similar to 2013 exam. There is no active consolidation or suspicious mass seen. These findings could correlate with sarcoidosis. CT abdomen and pelvis: The liver, the spleen, the gallbladder, the pancreas, and the adrenal glands appear unremarkable. There is a mildly enlarged portacaval lymph node measuring 1.7 cm, and there are mildly enlarged right para-aortic lymph nodes up to 1.4 cm in size. These were enlarged also on 04/19/2016, without adverse development. There is also enlargement in iliac lymph nodes including a right external iliac lymph node measuring 1.2 cm similar to the prior exam. There is evidence of prior hysterectomy. The slight prominence of the left adnexa is probably related to ovarian follicle or postoperative change. There is no bowel obstruction. No free fluid or fluid collection in the abdomen or pelvis is seen. There is no abdominal aortic aneurysm. The kidneys have symmetric enhancement and contrast excretion. The SI joints demonstrate vacuum phenomenon and degenerative sclerotic changes. The osseous structures appear grossly unremarkable otherwise. IMPRESSION: There are mildly enlarged lymph nodes in the neck, chest, abdomen, and pelvis. There are also areas of pulmonary scarring and subpleural nodules seen. Most of these findings are chronic and similar or less prominent compared to prior exams as discussed. The lymphadenopathy and pulmonary findings favor diagnosis of sarcoidosis. Correlate clinically. Dictated by: Dictated on workstation # [id number]
== END ==
LOC: RAD 07:15
PROVIDERS: ATTEND Family Medicine
DX: R91.8 Other nonspecific abnormal finding of lung field (principal); R59.0 Localized enlarged lymph nodes
CPT/HCPCS: 36415; 70491; 71260; 74176; 80053; 83615; 85007; 85027

== ENCOUNTER 2017-07-12 11:59 | Outpatient (RCR) | payer MEDICARE, MEDICAID ==
[~2017-07-12 11:59] MED LIST changes: +ACHD5005 PO; -CATHETER FLUSH 10 ML SYR IV PRN; -HYDR-3812 PO; -IOHEXOL 350 MG/ML 150 ML (OMNIPAQUE 350) VIAL IV ONE; -METO-270 PO; -METO-272 PO; +METO-370 PO; +METO-387 PO; +NAPR-1071 PO; -NAPR500T PO
== END 2017-10-10 | disposition home or self-care (01) ==
LOC: CARD 11:59
PROVIDERS: ATTEND Family Medicine
DX: R00.2 Palpitations (principal)
CPT/HCPCS: 93225; 93226

== ENCOUNTER 2017-07-14 16:07 | Emergency (ER) | payer MEDICARE, MEDICAID ==
[~2017-07-14] VITALS: Ht 167.6 cm; Wt 141.5 kg
[~2017-07-14 16:07] MED LIST changes: -ACHD5005 PO; +HYDR-3812 PO
--- OUTSIDE RECORDS SUMMARY | 2017-07-14 16:13 | XMS REPORT | Clinical Summary ---
Author Author [facility] Organization [facility] Address Unknown Phone Unavailable Care Team Providers Care Drum Tender Name Role Phone PCP Unavailable Source Comments Some departments are not documenting in the electronic medical record. If you do not see the information that you expected, contact Release of Information in the Health Information Management department at [phone] for further assistance in locating additional records.[facility] Allergies No Known Allergies Current Medications Prescription Sig. [...] Tab 0 05/19/20 Active OXY-IR) 5 mg every 4 hours as needed 16 tabletIndications: PAIN for Pain Indications: PAIN Earliest Fill Date: [...] at patient's PCP office (patient lives in [place], [place]). 3. F/u with Dr. Steele to [...] 2016 D&C with benign tissue Did discuss BELLA at preop and pt okay with it - consent signed. 05/23/2016 S/p AMEE - benign 06/17/2016 Released back to activities Family History Medical History Relation Name Comments Cancer-Colon Brother Diabetes Father Cancer-Breast Maternal Grandmother Relation Name Status Comments Brother Father Maternal Grandmother Social History Tobacco Use Types Packs/Day Years Used Date Current Every Day Smoker Cigarettes 0.25 15 Smokeless Tobacco: Never Used Alcohol Use Drinks/Week oz/Week Comments Yes 1 Standard 0.6 drinks or equivalent Sex Assigned at Date Recorded Not on file Last Filed Vital Signs Vital Sign Reading Time Taken Blood Pressure 124/71 05/19/2016 7:10 AM CDT Pulse 65 05/19/2016 7:10 AM CDT Temperature 36.7 C (98.1 F) 05/19/2016 7:10 AM CDT Respiratory Rate 16 05/05/2016 11:29 AM CDT Oxygen Saturation 100% 05/19/2016 7:10 AM CDT Inhaled Oxygen - - Concentration Weight 139.7 kg (307 lb 14.4 oz) 06/16/2016 1:53 PM GERIATRIC NURSE Height 170.7 cm (5' 7.2") 06/16/2016 1:53 PM GERIATRIC NURSE Body Mass Index 47.94 06/16/2016 1:53 PM GERIATRIC NURSE Plan of Treatment Health Maintenance Due Date Last Done Comments PHYSICAL (COMPREHENSIVE) 1981 EXAM PERTUSSIS VACCINE 1985 TETANUS VACCINE 1991 CERVICAL CANCER SCREENING 2004 BREAST CANCER SCREENING 2014 INFLUENZA VACCINE 03/07/2017 Results Not on filefrom Last 3 Months
--- NOTE | 2017-07-14 16:42 | ED Cardiac General ---
History of Present Illness General Chief Complaint: Cardiac/General Problems Stated Complaint: PALPITATIONS X 1 WK Nursing Triage Note: ARRIVED VIA AMB TO ROOM 03 WITH COMPLAINTS OF PALPITATIONS X1 WEEK OFF AND ON. STATES SHE DOES NOT KNOW IF ITS HER ANXIETY OR HER MEDICATIONS CAUSING THE PALPITATIONS. PT STATES SHE TURNED IN HER HALTER MONITOR TODAY. Source: patient Exam Limitations: no limitations History of Present Illness Time seen by provider: 16:42 Allergies and Home Medications Allergies Coded Allergies: No Known Drug Allergies (Verified , 07/06/15) Home Medications Alprazolam 0.5 Mg Tablet, 0.5 MG PO BID, (Reported) Amlodipine Besylate 10 Mg Tablet, 10 MG PO DAILY, (Reported) Escitalopram Oxalate 10 Mg Tablet, 10 MG PO DAILY, (Reported) Famotidine 20 Mg Tablet, 20 MG PO BID, #30 Ref 0 Prescribed by: BRANDEN CARDONA on 04/19/16516 Hydrochlorothiazide 25 Mg Tablet, 25 MG PO DAILY, (Reported) Metoprolol Succinate 50 Mg Tab.er.24h, 50 MG PO DAILY, (Reported) Sucralfate 1 Gm Tablet, 1 GM PO ACHS, #60 Ref 0 Prescribed by: BRANDEN CARDONA on 04/19/16516 Tramadol HCl 50 Mg Tablet, 50-100 MG PO Q6H PRN for ABDOMINAL PAIN, #20 Ref 0 Prescribed by: BRANDEN CARDONA on 04/19/16516 Past Kaiucrv-Jtrlgt-Jwiami Hx Patient Social History Alcohol Use: Denies Use Recreational Drug Use: No Smoking Status: Current Everyday Smoker Type Used: Cigarettes 2nd Hand Smoke Exposure: Yes Recent Foreign Travel: No Contact w/Someone Who Travel: No Recent Infectious Disease Expo: No Recent Hopitalizations: No Immunizations Up To Date Tetanus Booster (TDap): Unknown Date of Pneumonia Vaccine: Aug 07, 2013 Date of Influenza Vaccine: Apr 23, 2013 Seasonal Allergies Seasonal Allergies: No Surgeries History of Surgeries: Yes (uterine ablation, ) Surgeries: Abdominal, Section, Hysterectomy, Orthopedic Respiratory History of Respiratory Disorde: Yes (SARCOIDOSIS, TOBACCOISM) Respiratory Disorders: Asthma, Chronic Bronchitis Currently Using CPAP: No Currently Using BIPAP: No Cardiovascular History of Cardiac Disorders: Yes Cardiac Disorders: Coronary Artery Disease, Hypertension, Palpitations, Valvular Heart Disease Neurological History of Neurological Disord: No Reproductive System Hx Reproductive Disorders: Yes Female Reproductive Disorders: Menstrual Problems, Endometriosis, Ovarian Cyst Genitourinary History of Genitourinary Disor: No Gastrointestinal History of Gastrointestinal Di: Yes (FATTY LIVER) Gastrointestinal Disorders: Gastroesophageal Reflux Musculoskeletal History of Musculoskeletal Dis: Yes (CHRONIC NECK PAIN, SARCOIDOSIS) Musculoskeletal Disorders: Arthritis Endocrine History of Endocrine Disorders: Yes (BORDERLINE DIABETES DIET CONTROLLED; MORBID OBESITY) Endocrine Disorders: Diabetes, Non-Insulin dep HEENT History of HEENT Disorders: No Cancer History of Cancer: No Psychosocial History of Psychiatric Problem: Yes Behavioral Health Disorders: Anxiety Integumentary History of Skin or Integumenta: No Blood Transfusions History of Blood Disorders: Yes (ANEMIA) Adverse Reaction to a Blood Tr: No Family Medical History Significant Family History: Psychiatric Problems Family Medial History: Cancer 09 BROTHER, , Age:40's - 50, Onset:40's - 50 Cardiovascular disease 03 FATHER Diabetes mellitus 03 FATHER Family history: Diabetes mellitus 03 FATHER Family history: Hypertension 03 FATHER Hypertension 03 FATHER Physical Exam Vital Signs Vital Sign - Last 12Hours 07/14/17 16:15 Temp 98.0 Pulse 98 Resp 18 B/P (MAP) 143/95 (111) Pulse Ox 98 O2 Delivery Room Air Capillary Refill : Less Than 3 Seconds Progress/Results/Core Measures Results/Orders Lab Results Laboratory Tests Test 07/14/17 16:40 07/14/17 16:52 Range/Units Urine Color YELLOW Urine Clarity CLEAR Urine pH 6.5 5-9 Urine Specific [place] 1.015 L 1.016-1.022 Urine Protein 1+ H NEGATIVE Urine Glucose (UA) NEGATIVE NEGATIVE Urine Ketones NEGATIVE NEGATIVE Urine Nitrite NEGATIVE NEGATIVE Urine Bilirubin NEGATIVE NEGATIVE Urine Urobilinogen 1 NORMAL MG/DL Urine Leukocyte Esterase 1+ H NEGATIVE Urine RBC (Auto) 2+ H NEGATIVE Urine RBC 5-10 H /HPF Urine WBC 0-2 /HPF Urine Squamous Epithelial Cells 5-10 /HPF Urine Crystals NONE /LPF Urine Bacteria NONE /HPF Urine Casts NONE /LPF Urine Mucus NEGATIVE /LPF Urine Culture Indicated NO Urine Opiates Screen NEGATIVE NEGATIVE Urine Oxycodone Screen NEGATIVE NEGATIVE Urine Methadone Screen NEGATIVE NEGATIVE Urine Propoxyphene Screen NEGATIVE NEGATIVE Urine Barbiturates Screen NEGATIVE NEGATIVE Ur Tricyclic Antidepressants Screen NEGATIVE NEGATIVE Urine Phencyclidine Screen NEGATIVE NEGATIVE Urine Amphetamines Screen NEGATIVE NEGATIVE Urine Methamphetamines Screen NEGATIVE NEGATIVE Urine Benzodiazepines Screen POSITIVE H NEGATIVE Urine Cocaine Screen NEGATIVE NEGATIVE Urine Cannabinoids Screen NEGATIVE NEGATIVE White Blood Count 5.3 4.3-11.0 10^3/uL Red Blood Count 4.44 4.35-5.85 10^6/uL Hemoglobin 11.8 11.5-16.0 G/DL Hematocrit 37 35-52 % Mean Corpuscular Volume 83 80-99 FL Mean Corpuscular Hemoglobin 27 25-34 PG Mean Corpuscular Hemoglobin Concent 32 32-36 G/DL Red Cell Distribution Width 14.1 10.0-14.5 % Platelet Count 270 130-400 10^3/uL Mean Platelet Volume 8.5 7.4-10.4 FL Neutrophils (%) (Auto) 54 42-75 % Lymphocytes (%) (Auto) 34 12-44 % Monocytes (%) (Auto) 10 0-12 % Eosinophils (%) (Auto) 2 0-10 % Basophils (%) (Auto) 0 0-10 % Neutrophils # (Auto) 2.9 1.8-7.8 X 10^3 Lymphocytes # (Auto) 1.8 1.0-4.0 X 10^3 Monocytes # (Auto) 0.5 0.0-1.0 X 10^3 Eosinophils # (Auto) 0.1 0.0-0.3 10^3/uL Basophils # (Auto) 0.0 0.0-0.1 10^3/uL Sodium Level 141 135-145 MMOL/L Potassium Level 3.9 3.6-5.0 MMOL/L Chloride Level 103 98-107 MMOL/L Carbon Dioxide Level 31 21-32 MMOL/L Anion Gap 7 5-14 MMOL/L Blood Urea Nitrogen 15 7-18 MG/DL Creatinine 0.69 0.60-1.30 MG/DL Estimat Glomerular Filtration Rate > 60 BUN/Creatinine Ratio 22 Glucose Level 102 70-105 MG/DL Calcium Level 9.6 8.5-10.1 MG/DL Magnesium Level 1.9 1.8-2.4 MG/DL Total Bilirubin 0.4 0.1-1.0 MG/DL Aspartate Amino Transf (AST/SGOT) 15 5-34 U/L Alanine Aminotransferase (ALT/SGPT) 18 0-55 U/L Alkaline Phosphatase 57 40-136 U/L Troponin I < 0.30 <0.30 NG/ML Total Protein 8.0 6.4-8.2 GM/DL Albumin 3.8 3.2-4.5 GM/DL TSH [place] Testing 1.36 0.35-4.94 UIU/ML My Orders Orders - PRATIK CARBONE Cbc With Automated Diff (07/14/17 16:33) Comprehensive Metabolic Panel (07/14/17 16:33) Drug Screen Stat (Urine) (07/14/17 16:33) Magnesium (07/14/17 16:33) Thyroid Analyzer (07/14/17 16:33) Troponin I (07/14/17 16:33) Ua Culture If Indicated (07/14/17 16:33) Saline Lock/Iv-Start (07/14/17 16:33) Vital Signs/I&O Vital Sign - Last 12Hours 07/14/17 16:15 Temp 98.0 Pulse 98 Resp 18 B/P (MAP) 143/95 (111) Pulse Ox 98 O2 Delivery Room Air Blood Pressure Mean: 111 Departure Communication (Admissions) Progress Notes Patient seen and evaluated. Baseline labs and EKG obtained. While hooked up to the rhythm monitor patient was noted to have PVCs at the exact moment of patient's palpitation symptoms. Patient does have a known history of PVCs noted on her last ECG pm 07/25/2016 1828 D/W Kecia at [facility]. [facility] to call Johanne on Monday to schedule outpatient intake. Impression Impression: Primary Impression: Palpitations Additional Impression: Stress and adjustment reaction Disposition: 01 HOME, SELF-CARE Condition: Improved Departure-Patient Inst. Decision time for Depature: 18:27 Referrals: RALPH MCGEE DO (PCP/Family) Primary Care Physician Patient Instructions: Palpitations (DC), Relaxation Techniques, Stress, Ventricular Premature Beats Add. Discharge Instructions: All discharge instructions reviewed with patient and/or family. Voiced understanding. Continue usual home medications. Drink plenty of fluids. Follow-up with Dr. López Monday as previously scheduled. Expect a call from [facility] on Monday to schedule an outpatient intake appointment for counseling. Contact the Crisis Line at [phone] or if worsened anxiety, thoughts of harming yourself, or thoughts of harming others. Return immediately to the emergency department or contact 911 for worsened symptoms, chest pain, shortness of air, dizziness, thoughts of harming yourself, thoughts of harming others, or any other concerns. PRATIK CARBONE Jul 14, 2017 16:42
[2017-07-14 16:54] LABS: BILIRUBIN,URINE NEGATIVE (NEGATIVE); KETONES,URINE NEGATIVE (NEGATIVE); LEUKOCYTE ESTERASE ,URINE 1+ (NEGATIVE); NITRITE,URINE NEGATIVE (NEGATIVE); PH,URINE 6.5 (5-9); PROTEIN,URINE 1+ (NEGATIVE); UROBILINOGEN,URINE 1 MG/DL (NORMAL)
[2017-07-14 17:04] LABS: BASOPHILS % (AUTO) 0 % (0-10); EOSINOPHILS # (AUTO) 0.1 10^3/uL (0.0-0.3); EOSINOPHILS % (AUTO) 2 % (0-10); LYMPHOCYTES # (AUTO) 1.8 X 10^3 (1.0-4.0); LYMPHOCYTES % (AUTO) 34 % (12-44); MEAN CORPUSCULAR HEMOGLOBIN 27 PG (25-34); MEAN CORPUSCULAR HGB CONC 32 G/DL (32-36); MEAN CORPUSCULAR VOLUME 83 FL (80-99); MEAN PLATELET VOLUME 8.5 FL (7.4-10.4); MONOCYTES # (AUTO) 0.5 X 10^3 (0.0-1.0); MONOCYTES % (AUTO) 10 % (0-12); NEUTROPHILS # (AUTO) 2.9 X 10^3 (1.8-7.8); NEUTROPHILS % (AUTO) 54 % (42-75); PLATELET COUNT 270 10^3/uL (130-400); RED BLOOD COUNT 4.44 10^6/uL (4.35-5.85); RED CELL DISTRIBUTION WIDTH 14.1 % (10.0-14.5); WHITE BLOOD COUNT 5.3 10^3/uL (4.3-11.0)
[2017-07-14 17:05] LABS: WBC,URINE 0-2 /HPF
[2017-07-14 17:19] LABS: ALANINE AMINOTRANSFERASE 18 U/L (0-55); ALBUMIN 3.8 GM/DL (3.2-4.5); ANION GAP 7 MMOL/L (5-14); ASPARTATE AMINO TRANSFERASE 15 U/L (5-34); BILIRUBIN,TOTAL 0.4 MG/DL (0.1-1.0); BLOOD UREA NITROGEN 15 MG/DL (7-18); BUN/CREATININE RATIO 22; CALCIUM 9.6 MG/DL (8.5-10.1); CARBON DIOXIDE 31 MMOL/L (21-32); CHLORIDE 103 MMOL/L (98-107); CREATININE SERUM 0.69 MG/DL (0.60-1.30); GFR ESTIMATED > 60; GLUCOSE 102 MG/DL (70-105); MAGNESIUM 1.9 MG/DL (1.8-2.4); POTASSIUM 3.9 MMOL/L (3.6-5.0); SODIUM 141 MMOL/L (135-145)
[2017-07-14 17:39] LABS: TROPONIN I < 0.30 NG/ML (<0.30)
[2017-07-14 18:42] VITALS: BP 142/106
== END 2017-07-14 18:42 | disposition home or self-care (01) ==
LOC: EDUNIT# 16:07 → ER 16:08
DX: F43.29 Adjustment disorder with other symptoms (principal); J45.909 Unspecified asthma, uncomplicated; E78.00 Pure hypercholesterolemia, unspecified; I10 Essential (primary) hypertension; K21.9 Gastro-esophageal reflux disease without esophagitis; E11.9 Type 2 diabetes mellitus without complications; E66.01 Morbid (severe) obesity due to excess calories; I25.10 Atherosclerotic heart disease of native coronary artery without angina pectoris; F41.9 Anxiety disorder, unspecified; F17.210 Nicotine dependence, cigarettes, uncomplicated; Z87.59 Personal history of other complications of pregnancy, childbirth and the puerperium; Z87.19 Personal history of other diseases of the digestive system; Z87.448 Personal history of other diseases of urinary system; Z90.710 Acquired absence of both cervix and uterus
CPT/HCPCS: 36415; 80053; 80306; 81000; 83735; 84443; 84484; 85025

== ENCOUNTER → 2018-02-28 | Outpatient (CLI) | payer MEDICARE, MEDICAID ==
[~2018-02-28] MED LIST changes: +ACHD5005 PO; -HYDR-3812 PO
[2018-02-28 09:17] LABS: BASOPHILS % (AUTO) 0 % (0-10); EOSINOPHILS # (AUTO) 0.1 10^3/uL (0.0-0.3); EOSINOPHILS % (AUTO) 3 % (0-10); HEMATOCRIT 36 % (35-52); HEMOGLOBIN 11.6 G/DL (11.5-16.0); LYMPHOCYTES # (AUTO) 1.5 X 10^3 (1.0-4.0); LYMPHOCYTES % (AUTO) 31 % (12-44); MEAN CORPUSCULAR HEMOGLOBIN 27 PG (25-34); MEAN CORPUSCULAR HGB CONC 32 G/DL (32-36); MEAN CORPUSCULAR VOLUME 83 FL (80-99); MEAN PLATELET VOLUME 8.3 FL (7.4-10.4); MONOCYTES # (AUTO) 0.4 X 10^3 (0.0-1.0); MONOCYTES % (AUTO) 9 % (0-12); NEUTROPHILS # (AUTO) 2.8 X 10^3 (1.8-7.8); NEUTROPHILS % (AUTO) 57 % (42-75); PLATELET COUNT 245 10^3/uL (130-400); RED BLOOD COUNT 4.35 10^6/uL (4.35-5.85); RED CELL DISTRIBUTION WIDTH 14.3 % (10.0-14.5); WHITE BLOOD COUNT 4.9 10^3/uL (4.3-11.0)
[2018-02-28 09:25] LABS: BILIRUBIN,URINE NEGATIVE (NEGATIVE); CLARITY,URINE CLEAR; COLOR,URINE YELLOW; GLUCOSE, URINE (UA) NEGATIVE (NEGATIVE); KETONES,URINE NEGATIVE (NEGATIVE); LEUKOCYTE ESTERASE ,URINE 1+ (NEGATIVE); NITRITE,URINE NEGATIVE (NEGATIVE); PH,URINE 6 (5-9); PROTEIN,URINE 2+ (NEGATIVE); UROBILINOGEN,URINE 1 MG/DL (NORMAL)
[2018-02-28 09:36] LABS: BACTERIA,URINE TRACE /HPF; SQUAMOUS EPITHELIAL CELL,UR 25-50 /HPF
[2018-02-28 09:40] LABS: ALANINE AMINOTRANSFERASE 14 U/L (0-55); ALBUMIN 3.7 GM/DL (3.2-4.5); ALKALINE PHOSPHATASE 51 U/L (40-136); BILIRUBIN,TOTAL 0.6 MG/DL (0.1-1.0); BUN/CREATININE RATIO 22; CARBON DIOXIDE 26 MMOL/L (21-32); CHLORIDE 106 MMOL/L (98-107); CHOLESTEROL 133 MG/DL (< 200); CREATININE SERUM 0.69 MG/DL (0.60-1.30); GFR ESTIMATED > 60; GLUCOSE 175 MG/DL (70-105); HDL CHOLESTEROL 28 MG/DL (40-60); SODIUM 138 MMOL/L (135-145); TOTAL PROTEIN 7.7 GM/DL (6.4-8.2); TRIGLYCERIDES 103 MG/DL (<150); VLDL CHOLESTEROL 21 MG/DL (5-40)
== END ==
LOC: LAB 08:56
PROVIDERS: ATTEND Family Medicine
DX: E11.9 Type 2 diabetes mellitus without complications (principal); I10 Essential (primary) hypertension; E78.5 Hyperlipidemia, unspecified; Z79.899 Other long term (current) drug therapy
CPT/HCPCS: 36415; 80053; 80061; 81000; 83036; 85025

== ENCOUNTER → 2018-04-11 | Outpatient (CLI) | payer MEDICARE, MEDICAID ==
[~2018-04-11] MED LIST changes: -AMLO10TA2 PO; +AMLO10TA6 PO; -OXYC-197 PO; -OXYC-202 PO; +OXYC1TAB12 PO; +OXYC1TAB87 PO
== END ==
LOC: LAB 12:06
PROVIDERS: ATTEND Family Medicine
DX: M25.50 Pain in unspecified joint (principal)
CPT/HCPCS: 36415; 85652; 86038; 86141; 86430

== ENCOUNTER → 2018-04-25 | Outpatient (CLI) | payer MEDICARE, MEDICAID ==
--- NOTE | 2018-04-25 10:55 | Diagnostic Imaging Report ---
PROCEDURE: US DOPPLER ABD/COMPLETE TECHNIQUE: Multiple real-time grayscale images were obtained over the kidneys in various projections. Duplex evaluation of renal arteries was also attempted. INDICATION: Hypertension. FINDINGS: The right kidney measures 13.4 x 4.9 x 5.9 cm and the left kidney measures 13.8 x 6.8 x 5.6 cm. The cortical thickness is normal bilaterally. Echogenicity is unremarkable. No calculi or hydronephrosis is seen. The proximal and mid renal arteries cannot be visualized on either side due to bowel gas. Distal renal arteries demonstrate normal velocities. Waveforms are unremarkable. Images of the bladder are unremarkable. Bilateral ureteral jets are visualized. IMPRESSION: Unremarkable renal ultrasound with renal Doppler. Dictated by: Dictated on workstation # [id number]
== END ==
LOC: RAD 07:25
PROVIDERS: ATTEND Physician Assistant
DX: I35.8 Other nonrheumatic aortic valve disorders (principal); I25.10 Atherosclerotic heart disease of native coronary artery without angina pectoris; I10 Essential (primary) hypertension
CPT/HCPCS: 93975

== ENCOUNTER → 2018-05-08 | Outpatient (CLI) | payer MEDICARE, MEDICAID | LOC: CARD 08:56 | PROVIDERS: ATTEND Physician Assistant | DX: I25.10 Atherosclerotic heart disease of native coronary artery without angina pectoris (principal); R07.9 Chest pain, unspecified; I10 Essential (primary) hypertension; I35.8 Other nonrheumatic aortic valve disorders | CPT/HCPCS: 93306 ==

== ENCOUNTER → 2018-05-09 | Outpatient (CLI) | payer MEDICARE, MEDICAID ==
[~2018-05-09] MED LIST changes: +CATHETER FLUSH 10 ML SYR IV PRN; +REGADENOSON 0.4 MG/5 ML SYR (LEXISCAN) IV ONE
[2018-05-09 08:57] VITALS: BP 132/89
[2018-05-09 09:10] VITALS: BP 140/94
--- NOTE | 2018-05-09 15:15 | STRESS TEST ---
DATE OF SERVICE: 05/09/2018 LEXISCAN MYOVIEW STRESS TEST REPORT REFERRING PHYSICIAN: Akash Olivares DO Baseline heart rate is 69. Baseline blood pressure 141/96. Baseline EKG is sinus rhythm with no ischemic changes. In summary, the patient was injected with 10.97 mCi of technetium-99 Myoview and the resting images were obtained. The patient was scheduled initially for exercise stress test. She was unable to exercise beyond 3 minutes and 45 seconds on standard Chao protocol, had some chest pressure, nondiagnostic EKG changes. Test was terminated and converted to Lexiscan Myoview stress test. The patient tolerated 0.4 mg of Lexiscan with no difficulties, no EKG changes were noted, followed by 30.8 mCi of technetium-99 Myoview. Throughout the test, there were no EKG changes. The resting and stress images were reviewed and compared in the short axis, horizontal long axis, and vertical long axis views. Review of the images showed breast attenuation with reversible ischemia involving the mid to apical anterior wall and anterolateral wall. SSS is 10, SDS 7, TID value 0.92. On the gated images, the left ventricle appeared to be normal size with normal contractility. Calculated ejection fraction 65%. CONCLUSION: 1. The patient was unable to exercise beyond 3 minutes 45 seconds on standard Chao protocol. Test was converted to Lexiscan Myoview stress test. 2. The patient tolerated Lexiscan well. 3. Breast attenuation affecting the quality of the images with ischemia involving the mid to apical anterior wall and anterolateral wall. 4. Normal left ventricular size with normal contractility. Calculated ejection fraction 65%. Job ID: [id number] DocumentID: [id number] Dictated Date: 05/09/2018 15:05:48 Disease Case Manager Date: 05/09/2018 15:15:07 Dictated By: NOLAN WISE MD
== END ==
LOC: CARD 07:19
PROVIDERS: ATTEND Physician Assistant
DX: R07.9 Chest pain, unspecified (principal); I35.8 Other nonrheumatic aortic valve disorders; I25.10 Atherosclerotic heart disease of native coronary artery without angina pectoris; I10 Essential (primary) hypertension
CPT/HCPCS: 78452; 93017

== ENCOUNTER 2018-05-23 11:15 | Outpatient (RCR) | payer MEDICARE, MEDICAID ==
[~2018-05-23 11:15] MED LIST changes: -CATHETER FLUSH 10 ML SYR IV PRN; -REGADENOSON 0.4 MG/5 ML SYR (LEXISCAN) IV ONE
== END 2018-08-21 | disposition home or self-care (01) ==
LOC: CARD 11:15
PROVIDERS: ATTEND Internal Medicine Cardiovascular Disease
DX: I25.10 Atherosclerotic heart disease of native coronary artery without angina pectoris (principal); R07.89 Other chest pain; I10 Essential (primary) hypertension; E11.9 Type 2 diabetes mellitus without complications
CPT/HCPCS: 93225; 93226

== ENCOUNTER → 2018-09-05 | Outpatient (CLI) | payer MEDICARE, MEDICAID ==
[~2018-09-05] MED LIST changes: -AMLO10TA6 PO; +AMLO10TA7 PO; +IOHEXOL 350 MG/ML 100 ML (OMNIPAQUE 350) VIAL IV ONE; +NS 100 ML (IVPB) BAG IV ONE; +RECEIVED CONTRAST (Hold Metformin) IV SCH
--- NOTE | 2018-09-05 15:03 | Diagnostic Imaging Report ---
PROCEDURE: CT abdomen and pelvis with contrast. TECHNIQUE: Multiple contiguous axial images were obtained through the abdomen and pelvis after administration of intravenous contrast. INDICATION: Abdominal pain. FINDINGS: The previous CT neck, chest, abdomen, and pelvis exam of 03/14/2017 noted mildly enlarged lymph nodes in the neck, chest, abdomen, and pelvis. There also appear to be subpleural lung nodules. These findings raise the question of sarcoidosis. On this exam, the periaortic and portacaval nodes seen previously are again evident and do not seem to have changed significantly in size or appearance. There is also a large 3.0 x 5.0 cm robina mass in the lower abdomen/upper pelvis just to the left of midline. In retrospect, this finding was also present on the prior exam and has not changed significantly in size or appearance. There also appear to be a few other iliac chain nodes which are essentially no different than the previous study. The liver is mildly enlarged but similar in size to the prior exam measuring approximately 20 cm in maximum length. The spleen does seem enlarged when compared to the previous study and now measures 15.5 cm in length as opposed to 11.9 cm on the prior exam. The pancreas, the gallbladder, the adrenals, the kidneys, and the aorta and inferior vena cava show no sign of an acute abnormality. The stomach is partially filled with fluid and consequently difficult to assess. The appendix was not well visualized, but there are no indirect signs of acute appendicitis. The uterus is surgically absent. The urinary bladder is grossly unremarkable. The bone windows show no sign of a fracture or of a destructive lesion. There does seem to be generalized increased density throughout the osseous structures, however. This finding is nonspecific. The lung bases are clear. IMPRESSION: 1. There is no acute abnormality of the abdomen or pelvis. 2. The abdominal and pelvic adenopathy seen previously is again evident and does not appear to have changed significantly. The liver is enlarged, but splenomegaly has developed in the interval since the prior study. The adenopathy and hepatosplenomegaly are nonspecific, but the possibly that there is an underlying neoplastic process present should certainly be considered. 3. These results will be discussed with Dr. Olivares. Dictated on workstation # [id number]
== END ==
LOC: RAD 13:46
PROVIDERS: ATTEND Family Medicine
DX: K43.9 Ventral hernia without obstruction or gangrene (principal); R59.0 Localized enlarged lymph nodes; R16.2 Hepatomegaly with splenomegaly, not elsewhere classified; Z90.710 Acquired absence of both cervix and uterus
CPT/HCPCS: 74177

== ENCOUNTER → 2018-09-12 | Outpatient (CLI) | payer MEDICARE, MEDICAID ==
[2018-09-12 12:39] LABS: BUN/CREATININE RATIO 16; CARBON DIOXIDE 27 MMOL/L (21-32); CHLORIDE 102 MMOL/L (98-107); CREATININE SERUM 0.75 MG/DL (0.60-1.30); GFR ESTIMATED > 60; GLUCOSE 108 MG/DL (70-105); POTASSIUM 3.7 MMOL/L (3.6-5.0); SODIUM 138 MMOL/L (135-145)
--- NOTE | 2018-09-12 21:59 | Diagnostic Imaging Report ---
PROCEDURE: CT chest with contrast only. TECHNIQUE: Multiple contiguous axial images were obtained through the chest after administration of intravenous contrast. DATE: September 12, 2018. COMPARISON: CT neck, chest, abdomen and pelvis, March 14, 2017. CT chest, August 03, 2015. INDICATION: 43-year-old female, history of sarcoidosis. FINDINGS: There is a 4 mm potentially pleurally based nodule in the right lung on axial image 25 which is unchanged since July 2015 consistent with benign etiology. There are pleurally based subcentimeter right upper lobe pulmonary nodules which are unchanged, also consistent with benign etiology. There are predominantly linear opacities in the right lower lobe unchanged since at least August 03, 2015, compatible with mild scarring. There are predominantly linear opacities in the left upper lobe which are less prominent since August 03, 2015 compatible with mild focal scarring. There are pleurally based left upper lobe pulmonary nodules with the largest measuring approximately 8 mm in size on axial image 22, unchanged since at least August 03, 2015 consistent with benign etiology. There is focal predominantly linear opacity in the left lower lobe on axial image 28 which is unchanged since August 03, 2015 consistent with scarring. There is no interval focal airspace consolidation. There is no new or enlarging pulmonary nodule. The central airways are patent. There is no pneumothorax. There is no pleural effusion. There are bilateral hilar lymph nodes which measure approximately 1 cm in short axis. These are unchanged and perhaps mildly decreased in size since August 03, 2015. Mildly prominent subcarinal lymph nodes and paratracheal lymph nodes, as well as AP window lymph nodes, are also unchanged to perhaps mildly decreased in size since comparison exam. There are subcentimeter short axis axillary lymph nodes which are also stable to mildly decreased in size since July 2015. The heart is not enlarged. There is no identified pericardial effusion. There is no identified central pulmonary embolus. The main pulmonary artery caliber measures within normal limits in diameter. Evaluation of the imaged portions of the upper abdomen is grossly unremarkable. The bones are diffusely sclerotic. This is a similar appearance dating back to at least August 03, 2015. IMPRESSION: CT chest: 1. No evidence of interval acute cardiopulmonary abnormality. 2. Stable subcentimeter pulmonary nodules, some of which are pleurally based since at least July 2015 consistent with benign etiology. 3. Small multifocal areas of scarring within the lungs, as above. 4. Thoracic adenopathy which is stable to decreased in size since July 2015 which would be compatible with provided history of sarcoidosis. 5. Diffusely sclerotic bones with unchanged appearance since at least August 03, 2015. Dictated by: Dictated on workstation # [id number]
== END ==
LOC: RAD 12:11
PROVIDERS: ATTEND Family Medicine
DX: J98.4 Other disorders of lung (principal); R91.8 Other nonspecific abnormal finding of lung field; R59.0 Localized enlarged lymph nodes; D86.9 Sarcoidosis, unspecified; N28.9 Disorder of kidney and ureter, unspecified
CPT/HCPCS: 36415; 71260; 80048

== ENCOUNTER → 2018-09-17 | Outpatient (CLI) | payer MEDICARE, MEDICAID ==
[~2018-09-17] MED LIST changes: -IOHEXOL 350 MG/ML 100 ML (OMNIPAQUE 350) VIAL IV ONE; -NS 100 ML (IVPB) BAG IV ONE; -RECEIVED CONTRAST (Hold Metformin) IV SCH
[2018-09-17 09:54] LABS: BASOPHILS % (AUTO) 0 % (0-10); EOSINOPHILS # (AUTO) 0.1 10^3/uL (0.0-0.3); EOSINOPHILS % (AUTO) 3 % (0-10); HEMATOCRIT 35 % (35-52); LYMPHOCYTES # (AUTO) 1.5 X 10^3 (1.0-4.0); LYMPHOCYTES % (AUTO) 32 % (12-44); MEAN CORPUSCULAR HEMOGLOBIN 27 PG (25-34); MEAN CORPUSCULAR HGB CONC 32 G/DL (32-36); MEAN CORPUSCULAR VOLUME 84 FL (80-99); MEAN PLATELET VOLUME 7.7 FL (7.4-10.4); MONOCYTES # (AUTO) 0.5 X 10^3 (0.0-1.0); MONOCYTES % (AUTO) 10 % (0-12); NEUTROPHILS # (AUTO) 2.6 X 10^3 (1.8-7.8); NEUTROPHILS % (AUTO) 55 % (42-75); PLATELET COUNT 252 10^3/uL (130-400); RED CELL DISTRIBUTION WIDTH 15.3 % (10.0-14.5); WHITE BLOOD COUNT 4.7 10^3/uL (4.3-11.0)
[2018-09-17 10:13] LABS: ALANINE AMINOTRANSFERASE 15 U/L (0-55); ALBUMIN 3.8 GM/DL (3.2-4.5); ALKALINE PHOSPHATASE 51 U/L (40-136); BILIRUBIN,DIRECT 0.3 MG/DL (0.0-0.3); BILIRUBIN,INDIRECT 0.4 MG/DL; BILIRUBIN,TOTAL 0.7 MG/DL (0.1-1.0); BUN/CREATININE RATIO 18; CALCIUM 9.3 MG/DL (8.5-10.1); CARBON DIOXIDE 26 MMOL/L (21-32); CHLORIDE 101 MMOL/L (98-107); CREATININE SERUM 0.78 MG/DL (0.60-1.30); GFR ESTIMATED > 60; GLUCOSE 133 MG/DL (70-105); POTASSIUM 3.9 MMOL/L (3.6-5.0); SODIUM 138 MMOL/L (135-145); TOTAL PROTEIN 8.6 GM/DL (6.4-8.2)
== END ==
LOC: RT 09:19
PROVIDERS: ATTEND Nurse Practitioner Family
DX: J45.909 Unspecified asthma, uncomplicated (principal); D86.9 Sarcoidosis, unspecified; R91.8 Other nonspecific abnormal finding of lung field; R06.89 Other abnormalities of breathing; R06.00 Dyspnea, unspecified; E66.01 Morbid (severe) obesity due to excess calories; Z68.43 Body mass index [BMI] 50.0-59.9, adult; Z72.0 Tobacco use
CPT/HCPCS: 36415; 80053; 80076; 85025

== ENCOUNTER → 2018-10-03 | Outpatient (CLI) | payer MEDICARE, MEDICAID ==
[~2018-10-03] MED LIST changes: +RT-ALBUTEROL SULF 2.5 MG/3 ML PRE-MIX VIAL INH ONE
== END ==
LOC: RT 13:05
PROVIDERS: ATTEND Nurse Practitioner Family
DX: J45.909 Unspecified asthma, uncomplicated (principal); D86.9 Sarcoidosis, unspecified; R91.8 Other nonspecific abnormal finding of lung field; R06.89 Other abnormalities of breathing; R06.00 Dyspnea, unspecified; E66.01 Morbid (severe) obesity due to excess calories; Z68.43 Body mass index [BMI] 50.0-59.9, adult; Z72.0 Tobacco use
CPT/HCPCS: 94060; 94726; 94729

== ENCOUNTER → 2018-10-25 | Outpatient (CLI) | payer MEDICARE, MEDICAID ==
[~2018-10-25] MED LIST changes: -RT-ALBUTEROL SULF 2.5 MG/3 ML PRE-MIX VIAL INH ONE
== END ==
LOC: CARD 09:26
PROVIDERS: ATTEND Nurse Practitioner Family
DX: J45.909 Unspecified asthma, uncomplicated (principal); E66.01 Morbid (severe) obesity due to excess calories; D86.9 Sarcoidosis, unspecified; R91.8 Other nonspecific abnormal finding of lung field; R06.89 Other abnormalities of breathing; R06.00 Dyspnea, unspecified; Z72.0 Tobacco use
CPT/HCPCS: 93306

== ENCOUNTER → 2019-05-03 | Outpatient (CLI) | payer MEDICARE, MEDICAID ==
--- NOTE | 2019-05-03 10:43 | Diagnostic Imaging Report ---
INDICATION: Routine screening. COMPARISON: 10/31/2016 and 10/02/2015. TECHNIQUE: 2D and 3D bilateral screening mammography was performed with CAD. FINDINGS: Scattered fibroglandular densities are identified bilaterally. The benign nodule in the upper right breast is stable and most consistent with a benign intraparenchymal lymph node. There are scattered benign calcifications bilaterally. No spiculated mass or malignant appearing microcalcifications are seen. The axillae are unremarkable. IMPRESSION: No mammographic features suspicious for malignancy are identified. ACR BI-RADS Category 2: Benign findings. Result letter will be mailed to the patient. Note: At least 10% of breast cancer is not imaged by mammography. Dictated by: Dictated on workstation # [id number]
== END ==
LOC: RAD 09:09
PROVIDERS: ATTEND Family Medicine
DX: Z12.31 Encounter for screening mammogram for malignant neoplasm of breast (principal)
CPT/HCPCS: 77067

== ENCOUNTER 2019-09-26 13:30 | Emergency (ER) | payer MEDICARE, MEDICAID ==
[~2019-09-26] VITALS: Ht 167 cm; Wt 126.0 kg
[~2019-09-26 13:30] MED LIST changes: -METO-370 PO; -METO-387 PO; +METO50TA7 PO; +MTP25TSR PO
--- NOTE | 2019-09-26 13:36 | ED Cough/URI ---
General Chief Complaint: Respiratory Problems Stated Complaint: SOA Source: patient Exam Limitations: no limitations History of Present Illness Date Seen by Provider: Sep 26, 2019 Time Seen by Provider: 13:35 Initial Comments Cough, chest tightness, shortness of breath, wheezing, runny nose, scratchy throat began yesterday. Timing/Duration: yesterday Severity/Quality: moderate Associated Symptoms: cough, shortness of breath, wheezing Allergies and Home Medications Allergies Coded Allergies: No Known Drug Allergies (Verified , 07/06/15) Home Medications Alprazolam 0.5 Mg Tablet, 0.5 MG PO BID, (Reported) Amlodipine Besylate 10 Mg Tablet, 10 MG PO DAILY, (Reported) Escitalopram Oxalate 10 Mg Tablet, 10 MG PO DAILY, (Reported) Famotidine 20 Mg Tablet, 20 MG PO BID Prescribed by: BRANDEN CARDONA on 04/19/16516 Hydrochlorothiazide 25 Mg Tablet, 25 MG PO DAILY, (Reported) Metoprolol Succinate 50 Mg Tab.er.24h, 50 MG PO DAILY, (Reported) Sucralfate 1 Gm Tablet, 1 GM PO ACHS Prescribed by: BRANDEN CARDONA on 04/19/16516 Tramadol HCl 50 Mg Tablet, 50-100 MG PO Q6H PRN for ABDOMINAL PAIN Prescribed by: BRNADEN CARDONA on 04/19/16516 Patient Home Medication List Home Medication List Reviewed: Yes Review of Systems Review of Systems Constitutional: see HPI EENTM: see HPI, nose congestion Respiratory: see HPI, cough, wheezing Cardiovascular: no symptoms reported Genitourinary: no symptoms reported Musculoskeletal: no symptoms reported Skin: no symptoms reported Psychiatric/Neurological: No Symptoms Reported Hematologic/Lymphatic: No Symptoms Reported Past Vtzyxcd-Uwpfgf-Mumntu Hx Patient Social History Alcohol Use: Denies Use Recreational Drug Use: No Smoking Status: Current Everyday Smoker Type Used: Cigarettes 2nd Hand Smoke Exposure: Yes Recent Hopitalizations: No Immunizations Up To Date Tetanus Booster (TDap): Unknown Date of Pneumonia Vaccine: Aug 07, 2013 Date of Influenza Vaccine: Apr 23, 2013 Seasonal Allergies Seasonal Allergies: No Past Medical History Surgeries: Yes (uterine ablation, ) Abdominal, Section, Hysterectomy, Orthopedic Respiratory: Yes (SARCOIDOSIS, TOBACCOISM) Asthma, Chronic Bronchitis Currently Using CPAP: No Currently Using BIPAP: No Cardiac: Yes Coronary Artery Disease, Hypertension, Palpitations, Valvular Heart Disease Neurological: No Reproductive Disorders: Yes Female Reproductive Disorders: Menstrual Problems, Endometriosis, Ovarian Cyst Genitourinary: No Gastrointestinal: Yes (FATTY LIVER) Gastroesophageal Reflux Musculoskeletal: Yes (CHRONIC NECK PAIN, SARCOIDOSIS) Arthritis Endocrine: Yes (BORDERLINE DIABETES DIET CONTROLLED; MORBID OBESITY) Diabetes, Non-Insulin dep HEENT: No Cancer: No Psychosocial: Yes Anxiety Integumentary: No Blood Disorders: Yes (ANEMIA) Adverse Reaction/Blood Tranf: No Family Medical History Cancer 09 BROTHER, , Age:40's - 50, Onset:40's - 50 Cardiovascular disease 03 FATHER Diabetes mellitus 03 FATHER Family history: Diabetes mellitus 03 FATHER Family history: Hypertension 03 FATHER Hypertension 03 FATHER No Pertinent Family Hx, Psychiatric Problems Physical Exam Vital Signs - First Documented 09/26/19 09/26/19 13:30 13:56 Temp 36.7 Pulse 78 B/P (MAP) 170/102 (124) Pulse Ox 18 O2 Delivery Room Air Capillary Refill : Height: 5'6.00" Weight: 312lbs. 9.0oz. 141.390804sv; 50.92 BMI Method:Stated General Appearance: WD/WN, no apparent distress Eyes: Bilateral Eye Normal Inspection, Bilateral Eye PERRL, Bilateral Eye EOMI HEENT: PERRL/EOMI, normal ENT inspection Respiratory: no respiratory distress, no accessory muscle use, decreased breath sounds, wheezing Gastrointestinal: normal bowel sounds, non tender, soft Extremities: normal range of motion, non-tender Neurologic/Psychiatric: alert, normal mood/affect, oriented x 3 Skin: normal color, warm/dry Progress/Results/Core Measures Suspected Sepsis SIRS Temperature: Pulse: Respiratory Rate: Blood Pressure / Mean: Results/Orders Micro Results Microbiology 09/26/19 Influenza Types A,B Antigen (IDA) - Final, Complete My Orders Orders - MIQUEL CARDENAS APRN Chest Pa/Lat (2 View) (09/26/19 13:33) Ekg Tracing (09/26/19 13:33) Albuterol/Ipra Inhalation Soln (Duoneb I (09/26/19 13:45) Svn Small Volume Nebulizer (09/26/19 13:33) Influenza A And B Antigens (09/26/19 13:34) Medications Given in ED Current Medications Medications Dose Ordered Sig/Beckie Route Start Time Stop Time Status Last Admin Dose Admin Albuterol/ Ipratropium 3 ml ONCE ONCE INH 09/26/19 13:45 09/26/19 13:46 DC 09/26/19 13:56 3 ML Vital Signs/I&O 09/26/19 09/26/19 13:30 13:56 Temp 36.7 Pulse 78 B/P (MAP) 170/102 (124) Pulse Ox 18 97 O2 Delivery Room Air Capillary Refill : Departure Impression Primary Impression: Influenza B Disposition: 01 HOME, SELF-CARE Condition: Stable Departure-Patient Inst. Decision time for Depature: 14:08 Referrals: RALPH MCGEE DO (PCP/Family) Primary Care Physician Patient Instructions: Flu, Adult (DC) Add. Discharge Instructions: 1. Tylenol and ibuprofen for pain and fever control 2. Inhaler as directed 3. Take a one-time dose of Fleet medication as directed. Return to ER for any concerns, expect to feel poorly for about 1 week in total. Follow-up with your doctor next week for recheck. All discharge instructions reviewed with patient and/or family. Voiced understanding. Scripts Albuterol Sulfate (PROAIR HFA) 1 Puff Puff 2 PUFF IH Q4H PRN for WHEEZING, #1 PUFF 1 PUFF = 90 MCG Prov: MIQUEL CARDENAS DIGITAL CIRCUIT DESIGNER 09/26/19 Baloxavir Marboxil (Xofluza) 40 Mg Tablet 40 MG PO ONCE, #1 TAB Prov: MIQUEL CARDENAS DIGITAL CIRCUIT DESIGNER 09/26/19 MIQUEL CARDENAS DIGITAL CIRCUIT DESIGNER Sep 26, 2019 13:36
[2019-09-26] MEDS ORDERED: RT-ALBUTEROL/IPRATROPIUM 3 ML (DUONEB) VIAL INH ONE (13:45)
--- NOTE | 2019-09-26 14:04 | NUR ---
LAB CALLED POS FOR FLU B
[2019-09-26] MEDS ORDERED: RT-ALBUINH IH (14:11)
[2019-09-26] MEDS ORDERED: BALO40TA PO (14:11)
--- NOTE | 2019-09-26 14:32 | Diagnostic Imaging Report ---
INDICATION: Cough and congestion. TECHNIQUE: PA and lateral views of the chest are obtained with comparison made to study of 03/04/2017. FINDINGS: Overall heart size and pulmonary vascularity remain within normal limits. There has been mild increase in parahilar density. There is no evidence of lobar consolidation, pneumothorax, or significant pleural fluid. IMPRESSION: Increasing parahilar density which may be due to edema or pneumonitis. No consolidating pneumonia or other adverse change is seen. Dictated by: Dictated on workstation # [id number]
[2019-09-26 14:53] VITALS: BP 118/90
== END 2019-09-26 14:50 | disposition home or self-care (01) ==
LOC: EDUNIT# 13:30 → ER 13:32
DX: J10.1 Influenza due to other identified influenza virus with other respiratory manifestations (principal); I10 Essential (primary) hypertension; I25.10 Atherosclerotic heart disease of native coronary artery without angina pectoris; K21.9 Gastro-esophageal reflux disease without esophagitis; F41.9 Anxiety disorder, unspecified; E66.01 Morbid (severe) obesity due to excess calories; F17.210 Nicotine dependence, cigarettes, uncomplicated; Z82.49 Family history of ischemic heart disease and other diseases of the circulatory system; Z87.09 Personal history of other diseases of the respiratory system
CPT/HCPCS: 71046; 87804; 93005; 94640

== ENCOUNTER 2020-03-28 14:02 | Emergency (ER) | payer MEDICARE, MEDICAID ==
[~2020-03-28] VITALS: Ht 167 cm; Wt 139.2 kg
[~2020-03-28 14:02] MED LIST changes: +BALO40TA PO; +RT-ALBUINH IH
[2020-03-28] MEDS ORDERED: morphine INJ 10 MG/ML 1ML (SYR OR VIAL) IVP STA (14:17)
[2020-03-28 14:21] LABS: BILIRUBIN,URINE NEGATIVE (NEGATIVE); CLARITY,URINE CLEAR; COLOR,URINE YELLOW; GLUCOSE, URINE (UA) 3+ (NEGATIVE); KETONES,URINE NEGATIVE (NEGATIVE); LEUKOCYTE ESTERASE ,URINE NEGATIVE (NEGATIVE); NITRITE,URINE NEGATIVE (NEGATIVE); PH,URINE 5.5 (5-9); PROTEIN,URINE NEGATIVE (NEGATIVE)
[2020-03-28 14:26] LABS: BASOPHILS % (AUTO) 0 % (0-10); EOSINOPHILS # (AUTO) 0.1 10^3/uL (0.0-0.3); EOSINOPHILS % (AUTO) 2 % (0-10); HEMATOCRIT 38 % (35-52); HEMOGLOBIN 12.4 G/DL (11.5-16.0); LYMPHOCYTES % (AUTO) 36 % (12-44); MEAN CORPUSCULAR HEMOGLOBIN 27 PG (25-34); MEAN CORPUSCULAR HGB CONC 32 G/DL (32-36); MEAN CORPUSCULAR VOLUME 84 FL (80-99); MEAN PLATELET VOLUME 8.7 FL (7.4-10.4); MONOCYTES # (AUTO) 0.5 X 10^3 (0.0-1.0); MONOCYTES % (AUTO) 8 % (0-12); NEUTROPHILS % (AUTO) 54 % (42-75); PLATELET COUNT 232 10^3/uL (130-400); RED CELL DISTRIBUTION WIDTH 14.5 % (10.0-14.5); WHITE BLOOD COUNT 5.5 10^3/uL (4.3-11.0)
[2020-03-28 14:30] LABS: BACTERIA,URINE TRACE /HPF; RBC,URINE 0-2 /HPF; WBC,URINE 0-2 /HPF
--- NOTE | 2020-03-28 14:32 | ED Back Pain ---
General Chief Complaint: Back Problems Stated Complaint: BACK PAIN Source of Information: Patient Exam Limitations: No Limitations History of Present Illness Date Seen by Provider: Mar 28, 2020 Time Seen by Provider: 14:30 Initial Comments To ER with reports of right flank pain since yesterday evening without nausea or vomiting or dysuria or bowel changes. Pain is worsened by laying on her right side. No fever no chills no injury. She has taken 2 muscle relaxers and 2 ibuprofen without relief. Location: Paraspinous Muscles Timing/Duration: 1-2 Days Severity: Moderate Associated Symptoms: denies symptoms Allergies and Home Medications Allergies Coded Allergies: No Known Drug Allergies (Verified , 07/06/15) Home Medications Albuterol Sulfate 1 Puff Puff, 2 PUFF IH Q4H PRN for WHEEZING 1 PUFF = 90 MCG Prescribed by: MIQUEL CARDENAS on 09/26/191410 Alprazolam 0.5 Mg Tablet, 0.5 MG PO BID, (Reported) Amlodipine Besylate 10 Mg Tablet, 10 MG PO DAILY, (Reported) Baloxavir Marboxil 40 Mg Tablet, 40 MG PO ONCE Prescribed by: MIQUEL CARDENAS on 09/26/191410 Escitalopram Oxalate 10 Mg Tablet, 10 MG PO DAILY, (Reported) Famotidine 20 Mg Tablet, 20 MG PO BID Prescribed by: BRANDEN CARDONA on 04/19/16516 Hydrochlorothiazide 25 Mg Tablet, 25 MG PO DAILY, (Reported) Metoprolol Succinate 50 Mg Tab.er.24h, 50 MG PO DAILY, (Reported) Sucralfate 1 Gm Tablet, 1 GM PO ACHS Prescribed by: BRANDEN CARDONA on 04/19/16516 Tramadol HCl 50 Mg Tablet, 50-100 MG PO Q6H PRN for ABDOMINAL PAIN Prescribed by: BRANDEN CARDONA on 04/19/16516 Patient Home Medication List Home Medication List Reviewed: Yes Review of Systems Constitutional: see HPI; No chills, No fever EENTM: see HPI Respiratory: no symptoms reported Cardiovascular: no symptoms reported Genitourinary: no symptoms reported Musculoskeletal: see HPI, back pain Skin: no symptoms reported Psychiatric/Neurological: No Symptoms Reported Past Huswieg-Lvlhcy-Fwmqci Hx Patient Social History Type Used: Cigarettes 2nd Hand Smoke Exposure: Yes Recent Foreign Travel: No Contact w/Someone Who Travel: No Recent Hopitalizations: No Immunizations Up To Date Tetanus Booster (TDap): Unknown Date of Pneumonia Vaccine: Aug 07, 2013 Date of Influenza Vaccine: Apr 23, 2013 Seasonal Allergies Seasonal Allergies: No Past Medical History Surgeries: Yes (uterine ablation, ) Abdominal, Section, Hysterectomy, Orthopedic Respiratory: Yes (SARCOIDOSIS, TOBACCOISM) Asthma, Chronic Bronchitis Currently Using CPAP: No Currently Using BIPAP: No Cardiac: Yes Coronary Artery Disease, Hypertension, Palpitations, Valvular Heart Disease Neurological: No Reproductive Disorders: Yes Female Reproductive Disorders: Menstrual Problems, Endometriosis, Ovarian Cyst Genitourinary: No Gastrointestinal: Yes (FATTY LIVER) Gastroesophageal Reflux Musculoskeletal: Yes (CHRONIC NECK PAIN, SARCOIDOSIS) Arthritis Endocrine: Yes (BORDERLINE DIABETES DIET CONTROLLED; MORBID OBESITY) Diabetes, Non-Insulin dep HEENT: No Cancer: No Psychosocial: Yes Anxiety Integumentary: No Blood Disorders: Yes (ANEMIA) Adverse Reaction/Blood Tranf: No Family Medical History Cancer 09 BROTHER, , Age:40's - 50, Onset:40's - 50 Cardiovascular disease 03 FATHER Diabetes mellitus 03 FATHER Family history: Diabetes mellitus 03 FATHER Family history: Hypertension 03 FATHER Hypertension 03 FATHER No Pertinent Family Hx, Psychiatric Problems Physical Exam Vital Signs Vital Signs - First Documented 03/28/20 14:22 Temp 36.1 Pulse 95 Resp 18 B/P (MAP) 150/88 (108) Pulse Ox 98 Capillary Refill : Height, Weight, BMI Height: 5'6.00" Weight: 312lbs. 9.0oz. 141.128916vf; 45.00 BMI Method:Stated General Appearance: No Apparent Distress, WD/WN, Obese, Other (alert and oriented very pleasant) Neck: Full Range of Motion, Normal Inspection Respiratory: Lungs Clear, Normal Breath Sounds, No Accessory Muscle Use, No Respiratory Distress Gastrointestinal: Normal Bowel Sounds, Non Tender, Soft Back: No Other (no tenderness over the right flank) Extremity: Normal Capillary Refill, Normal Inspection Neurologic/Psychiatric: Alert, Oriented x3 Skin: Normal Color, Warm/Dry Progress/Results/Core Measures Results/Orders Lab Results Laboratory Tests Test 03/28/20 14:10 03/28/20 14:15 Range/Units Urine Color YELLOW Urine Clarity CLEAR Urine pH 5.5 5-9 Urine Specific [place] <=1.005 1.016-1.022 Urine Protein NEGATIVE NEGATIVE Urine Glucose (UA) 3+ H NEGATIVE Urine Ketones NEGATIVE NEGATIVE Urine Nitrite NEGATIVE NEGATIVE Urine Bilirubin NEGATIVE NEGATIVE Urine Urobilinogen 1.0 < = 1.0 MG/DL Urine Leukocyte Esterase NEGATIVE NEGATIVE Urine RBC (Auto) TRACE-I NEGATIVE Urine RBC 0-2 /HPF Urine WBC 0-2 /HPF Urine Squamous Epithelial Cells 5-10 /HPF Urine Crystals PRESENT H /LPF Urine Bacteria TRACE /HPF Urine Casts NONE /LPF Urine Mucus NEGATIVE /LPF Urine Culture Indicated NO White Blood Count 5.5 4.3-11.0 10^3/uL Red Blood Count 4.55 4.35-5.85 10^6/uL Hemoglobin 12.4 11.5-16.0 G/DL Hematocrit 38 35-52 % Mean Corpuscular Volume 84 80-99 FL Mean Corpuscular Hemoglobin 27 25-34 PG Mean Corpuscular Hemoglobin Concent 32 32-36 G/DL Red Cell Distribution Width 14.5 10.0-14.5 % Platelet Count 232 130-400 10^3/uL Mean Platelet Volume 8.7 7.4-10.4 FL Neutrophils (%) (Auto) 54 42-75 % Lymphocytes (%) (Auto) 36 12-44 % Monocytes (%) (Auto) 8 0-12 % Eosinophils (%) (Auto) 2 0-10 % Basophils (%) (Auto) 0 0-10 % Neutrophils # (Auto) 3.0 1.8-7.8 X 10^3 Lymphocytes # (Auto) 2.0 1.0-4.0 X 10^3 Monocytes # (Auto) 0.5 0.0-1.0 X 10^3 Eosinophils # (Auto) 0.1 0.0-0.3 10^3/uL Basophils # (Auto) 0.0 0.0-0.1 10^3/uL Sodium Level 141 135-145 MMOL/L Potassium Level 3.3 L 3.6-5.0 MMOL/L Chloride Level 108 H 98-107 MMOL/L Carbon Dioxide Level 25 21-32 MMOL/L Anion Gap 8 5-14 MMOL/L Blood Urea Nitrogen 16 7-18 MG/DL Creatinine 0.79 0.60-1.30 MG/DL Estimat Glomerular Filtration Rate > 60 BUN/Creatinine Ratio 20 Glucose Level 174 H 70-105 MG/DL Calcium Level 8.8 8.5-10.1 MG/DL Corrected Calcium 9.0 8.5-10.1 MG/DL Total Bilirubin 0.5 0.1-1.0 MG/DL Aspartate Amino Transf (AST/SGOT) 11 5-34 U/L Alanine Aminotransferase (ALT/SGPT) 15 0-55 U/L Alkaline Phosphatase 52 40-136 U/L Total Protein 7.2 6.4-8.2 GM/DL Albumin 3.7 3.2-4.5 GM/DL Serum Test, Qualitative NEGATIVE NEGATIVE My Orders Orders - MIQUEL CARDENAS APRN Cbc With Automated Diff (03/28/20 14:17) Hcg,Qualitative Serum (03/28/20 14:17) Comprehensive Metabolic Panel (03/28/20 14:17) Ed Iv/Invasive Line Start (03/28/20 14:17) Ct Abd/Pelvis Wo(Kidney Stone) (03/28/20 14:17) Morphine Injection (Morphine Injection (03/28/20 14:17) Ondansetron Injection (Zofran Injectio (03/28/20 14:45) Ondansetron Injection (Zofran Injectio (03/28/20 14:33) Medications Given in ED Current Medications Medications Dose Ordered Sig/Beckie Route Start Time Stop Time Status Last Admin Dose Admin Ondansetron HCl 8 mg ONCE ONCE IVP 03/28/20 14:45 03/28/20 14:46 DC 03/28/20 14:38 8 MG Vital Signs/I&O 03/28/20 14:22 Temp 36.1 Pulse 95 Resp 18 B/P (MAP) 150/88 (108) Pulse Ox 98 Departure Impression Primary Impression: Musculoskeletal back pain Disposition: 01 HOME, SELF-CARE Condition: Stable Departure-Patient Inst. Decision time for Depature: 15:37 Referrals: RALPH MCGEE DO (PCP/Family) Primary Care Physician Patient Instructions: Low Back Pain (DC) Add. Discharge Instructions: 1. Pain medication as directed 2. Return to ER for any concerns 3. Follow-up with your doctor next week. All discharge instructions reviewed with patient and/or family. Voiced understanding. MIQUEL CARDENAS APRN Mar 28, 2020 14:32
[2020-03-28] MEDS ORDERED: ONDANSETRON 4 MG/2 ML (SDV) Z0FRAN ONE (14:33)
[2020-03-28 14:44] LABS: ALANINE AMINOTRANSFERASE 15 U/L (0-55); ALBUMIN 3.7 GM/DL (3.2-4.5); ALKALINE PHOSPHATASE 52 U/L (40-136); BILIRUBIN,TOTAL 0.5 MG/DL (0.1-1.0); BUN/CREATININE RATIO 20; CALCIUM 8.8 MG/DL (8.5-10.1); CARBON DIOXIDE 25 MMOL/L (21-32); CHLORIDE 108 MMOL/L (98-107); CREATININE SERUM 0.79 MG/DL (0.60-1.30); GFR ESTIMATED > 60; GLUCOSE 174 MG/DL (70-105); POTASSIUM 3.3 MMOL/L (3.6-5.0); SODIUM 141 MMOL/L (135-145); TOTAL PROTEIN 7.2 GM/DL (6.4-8.2)
[2020-03-28] MEDS ORDERED: ONDANSETRON 4 MG/2 ML (SDV) Z0FRAN IVP ONE (14:45)
--- NOTE | 2020-03-28 15:33 | Diagnostic Imaging Report ---
PROCEDURE: CT urinary tract, rule out kidney stone. TECHNIQUE: Multiple contiguous axial images were obtained through the abdomen and pelvis without the use of intravenous contrast. Auto Exposure Controls were utilized during the CT exam to meet ALARA standards for radiation dose reduction. INDICATION: Right flank pain. COMPARISON: CT abdomen and pelvis with IV contrast. FINDINGS: Lung bases are clear. The liver, gallbladder, pancreas, spleen, adrenals, kidneys, collecting systems and bladder are negative on this noncontrast exam. Hysterectomy. Normal appendix. No free intraperitoneal air or fluid. No lymphadenopathy. No evidence of bowel obstruction. Osseous structures are intact. IMPRESSION: No acute CT findings in the abdomen or pelvis on this noncontrast exam. Dictated by: Dictated on workstation # [id number]
[2020-03-28] MEDS ORDERED: HYDR-3870 PO (15:38)
[2020-03-28 15:53] VITALS: BP 145/78
== END 2020-03-28 15:53 | disposition home or self-care (01) ==
LOC: EDUNIT# 14:02 → ER 14:03
DX: M54.9 Dorsalgia, unspecified (principal); J45.909 Unspecified asthma, uncomplicated; I10 Essential (primary) hypertension; I25.10 Atherosclerotic heart disease of native coronary artery without angina pectoris; K21.9 Gastro-esophageal reflux disease without esophagitis; F41.9 Anxiety disorder, unspecified; E66.01 Morbid (severe) obesity due to excess calories; Z77.22 Contact with and (suspected) exposure to environmental tobacco smoke (acute) (chronic); Z68.42 Body mass index [BMI] 45.0-49.9, adult; Z82.49 Family history of ischemic heart disease and other diseases of the circulatory system
CPT/HCPCS: 36415; 74176; 80053; 81000; 84703; 85025

== ENCOUNTER 2021-01-23 15:16 | Emergency (ER) | payer MEDICARE, MEDICAID ==
[~2021-01-23] VITALS: Ht 165 cm; Wt 142.0 kg
[~2021-01-23 15:16] MED LIST changes: +ALPR.25T PO; +AMLO-251 PO; -AMLO10TA7 PO; +ESCI-2 PO; -ESCI10TA55 PO; +HYDR-3870 PO; -LISI-552 PO; +LISI20TA26 PO; -LISI40TA PO; +LISI40TA9 PO; -OXYC-465 PO; +OXYC-556 PO; -PANT40TA3 PO; +PANT40TA52 PO
--- NOTE | 2021-01-23 16:07 | ED General ---
General Stated Complaint: LEFT SIDE PAIN Source of Information: Patient Exam Limitations: No Limitations History of Present Illness Date Seen by Provider: Jan 23, 2021 Time Seen by Provider: 15:55 Initial Comments To ER with intermittent left lateral lower chest wall pain that is worsened and brought about by movement, specifically twisting towards the left side. She was unable to get out of bed this morning because of the severe pain. She felt fine yesterday and worked operations supervisor 2nd shift, fell asleep in the chair at work upon awakening had significant left posterior lateral chest wall pain. She took some ibuprofen and hydrocodone at home and the pain was dulled enough that she could sleep. However upon awakening today it was worse again. Timing/Duration: 1-2 Days Severity: Moderate Allergies and Home Medications Allergies Coded Allergies: No Known Drug Allergies (Verified , 07/06/15) Home Medications Albuterol Sulfate 1 Puff Puff, 2 PUFF IH Q4H PRN for WHEEZING 1 PUFF = 90 MCG Prescribed by: MIQUEL CARDENAS on 09/26/19 1411 Alprazolam 0.5 Mg Tablet, 0.5 MG PO BID, (Reported) Amlodipine Besylate 10 Mg Tablet, 10 MG PO DAILY, (Reported) Baloxavir Marboxil 40 Mg Tablet, 40 MG PO ONCE Prescribed by: MIQUEL CARDENAS on 09/26/19 1411 Escitalopram Oxalate 10 Mg Tablet, 10 MG PO DAILY, (Reported) Famotidine 20 Mg Tablet, 20 MG PO BID Prescribed by: BRANDEN CARDONA on 04/19/16516 Hydrochlorothiazide 25 Mg Tablet, 25 MG PO DAILY, (Reported) Hydrocodone/Acetaminophen 1 Each Tablet, 1 EACH PO Q4-6HR PRN for PAIN-MODERATE Prescribed by: MIQUEL CARDENAS on 03/28/20 1539 Metoprolol Succinate 50 Mg Tab.er.24h, 50 MG PO DAILY, (Reported) Sucralfate 1 Gm Tablet, 1 GM PO ACHS Prescribed by: BRANDEN CARDONA on 04/19/16516 Tramadol HCl 50 Mg Tablet, 50-100 MG PO Q6H PRN for ABDOMINAL PAIN Prescribed by: BRANDEN CARDONA on 04/19/16516 Patient Home Medication List Home Medication List Reviewed: Yes Review of Systems Review of Systems Constitutional: see HPI EENTM: see HPI Respiratory: no symptoms reported Cardiovascular: no symptoms reported Genitourinary: no symptoms reported Musculoskeletal: see HPI, back pain Skin: no symptoms reported Psychiatric/Neurological: No Symptoms Reported Hematologic/Lymphatic: No Symptoms Reported Immunological/Allergic: no symptoms reported Past Yxsispy-Acghlj-Ixdnqk Hx Patient Social History Type Used: Cigarettes 2nd Hand Smoke Exposure: Yes Recent Hopitalizations: No Immunizations Up To Date Tetanus Booster (TDap): Unknown Date of Pneumonia Vaccine: Aug 07, 2013 Date of Influenza Vaccine: Apr 23, 2013 Seasonal Allergies Seasonal Allergies: No Past Medical History Surgeries: Yes (uterine ablation, ) Abdominal, Section, Hysterectomy, Orthopedic Respiratory: Yes (SARCOIDOSIS, TOBACCOISM) Asthma, Chronic Bronchitis Currently Using CPAP: No Currently Using BIPAP: No Cardiac: Yes Coronary Artery Disease, Hypertension, Palpitations, Valvular Heart Disease Neurological: No Reproductive Disorders: Yes Female Reproductive Disorders: Menstrual Problems, Endometriosis, Ovarian Cyst Genitourinary: No Gastrointestinal: Yes (FATTY LIVER) Gastroesophageal Reflux Musculoskeletal: Yes (CHRONIC NECK PAIN, SARCOIDOSIS) Arthritis Endocrine: Yes (BORDERLINE DIABETES DIET CONTROLLED; MORBID OBESITY) Diabetes, Non-Insulin dep HEENT: No Cancer: No Psychosocial: Yes Anxiety, PTSD Integumentary: No Blood Disorders: Yes (ANEMIA) Adverse Reaction/Blood Tranf: No Family Medical History Cancer 09 BROTHER, , Age:40's - 50, Onset:40's - 50 Cardiovascular disease 03 FATHER Diabetes mellitus 03 FATHER Family history: Diabetes mellitus 03 FATHER Family history: Hypertension 03 FATHER Hypertension 03 FATHER No Pertinent Family Hx, Psychiatric Problems Physical Exam Vital Signs Vital Signs - First Documented 01/23/21 15:55 Temp 36.0 Pulse 88 Resp 18 B/P (MAP) 156/102 (120) Pulse Ox 96 Capillary Refill : Height, Weight, BMI Height: 5'6.00" Weight: 312lbs. 9.0oz. 141.442909av; 49.00 BMI Method:Stated General Appearance: No Apparent Distress, WD/WN Eyes: Bilateral Eye Normal Inspection, Bilateral Eye PERRL Neck: Full Range of Motion, Normal Inspection Respiratory: No Accessory Muscle Use, No Respiratory Distress Gastrointestinal: Non Tender, Soft Back: Normal Inspection, Other (Tender to palpation over the posterolateral left eighth and ninth ribs) Extremity: Normal Capillary Refill, Normal Inspection Neurologic/Psychiatric: Alert, Oriented x3 Skin: Normal Color, Warm/Dry Progress/Results/Core Measures Suspected Sepsis SIRS Temperature: Pulse: Respiratory Rate: Blood Pressure / Mean: Results/Orders My Orders Orders - MIQUEL CARDENAS APRN Ketorolac Injection (Toradol Injection) (01/23/21 16:15) Orphenadrine Inj (Ed Only) (Norflex Inje (01/23/21 16:15) Medications Given in ED Current Medications Medications Dose Ordered Sig/Beckie Route Start Time Stop Time Status Last Admin Dose Admin Ketorolac Tromethamine 60 mg ONCE ONCE IM 01/23/21 16:15 01/23/21 16:16 DC 01/23/21 16:19 60 MG Orphenadrine Citrate 60 mg ONCE ONCE IM 01/23/21 16:15 01/23/21 16:16 DC 01/23/21 16:19 60 MG Vital Signs/I&O 01/23/21 15:55 Temp 36.0 Pulse 88 Resp 18 B/P (MAP) 156/102 (120) Pulse Ox 96 Capillary Refill : Departure Communication (Admissions) She asks me to write a note for her to help her with wiping as needed. Impression Primary Impression: Thoracic back pain Disposition: HOME, SELF-CARE Condition: Stable Departure-Patient Inst. Decision time for Depature: 16:47 Referrals: RALPH MCGEE DO (PCP/Family) Primary Care Physician Patient Instructions: Muscle Spasms (DC) Add. Discharge Instructions: 1. Return to ER for any concerns. Medication as directed. Scripts Prednisone (Prednisone) 20 Mg Tab 40 MG PO DAILY, #4 TAB Prov: MIQUEL CARDENAS APRN 01/23/21 Tramadol HCl (Ultram) 50 Mg Tablet 50 MG PO Q6H, #14 TAB Prov: MIQUEL CARDENAS APRN 01/23/21 Work/School Note: Work Release Form Date Seen in the Emergency Department: Jan 23, 2021 Return to Work: Jan 23, 2021 Other Restrictions Listed Below: Please help dora with wiping as needed Images Torso/Trunk 1 - Tenderness MIQUEL CARDENAS APRN Jan 23, 2021 16:07
[2021-01-23] MEDS ORDERED: ORPHENADRINE 60 MG/2 ML (NORFLEX) AMP (ED ONLY) IM ONE (16:15)
[2021-01-23] MEDS ORDERED: KETOROLAC 60 MG/2 ML VIAL IM ONE (16:15)
[2021-01-23] MEDS ORDERED: TRAM-42 PO (16:54)
[2021-01-23] MEDS ORDERED: PRD20T PO (16:54)
[2021-01-23] MEDS ORDERED: predniSONE 20 MG TAB PO ONE (17:00)
[2021-01-23 17:04] VITALS: BP 145/88
== END 2021-01-23 17:03 | disposition home or self-care (01) ==
LOC: EDUNIT# 15:16 → ER 15:18
DX: M54.6 Pain in thoracic spine (principal); J45.909 Unspecified asthma, uncomplicated; I10 Essential (primary) hypertension; I25.10 Atherosclerotic heart disease of native coronary artery without angina pectoris; F41.9 Anxiety disorder, unspecified; K21.9 Gastro-esophageal reflux disease without esophagitis; E11.9 Type 2 diabetes mellitus without complications; G89.29 Other chronic pain; M54.2 Cervicalgia; Z77.22 Contact with and (suspected) exposure to environmental tobacco smoke (acute) (chronic); Z79.899 Other long term (current) drug therapy; Z79.891 Long term (current) use of opiate analgesic
CPT/HCPCS: 99284

== ENCOUNTER 2021-10-23 19:32 | Emergency (ER) | payer MEDICARE, MEDICAID ==
[~2021-10-23] VITALS: Ht 167.7 cm; Wt 131.1 kg
[~2021-10-23 19:32] MED LIST changes: +CYCL10TA25 PO; +MULT-1054 PO; -MULT-985 PO; +TRAM-42 PO
[2021-10-23 19:38] VITALS: BP 160/106
[2021-10-23 20:18] LABS: BASOPHILS % (AUTO) 1 % (0-10); EOSINOPHILS # (AUTO) 0.1 10^3/uL (0.0-0.3); EOSINOPHILS % (AUTO) 2 % (0-10); HEMATOCRIT 39 % (35-52); HEMOGLOBIN 12.4 g/dL (11.5-16.0); LYMPHOCYTES # (AUTO) 2.7 10^3/uL (1.0-4.0); LYMPHOCYTES % (AUTO) 37 % (12-44); MEAN CORPUSCULAR HEMOGLOBIN 28 pg (25-34); MEAN CORPUSCULAR HGB CONC 32 g/dL (32-36); MEAN CORPUSCULAR VOLUME 87 fL (80-99); MEAN PLATELET VOLUME 8.3 fL (9.0-12.2); MONOCYTES # (AUTO) 0.5 10^3/uL (0.0-1.0); MONOCYTES % (AUTO) 7 % (0-12); NEUTROPHILS # (AUTO) 3.9 10^3/uL (1.8-7.8); NEUTROPHILS % (AUTO) 53 % (42-75); PLATELET COUNT 315 10^3/uL (130-400); WHITE BLOOD COUNT 7.4 10^3/uL (4.3-11.0)
[2021-10-23 20:26] LABS: ALBUMIN 3.8 GM/DL (3.2-4.5); CHLORIDE 103 MMOL/L (98-107); POTASSIUM 3.6 MMOL/L (3.6-5.0); SODIUM 138 MMOL/L (135-145)
[2021-10-23 20:27] LABS: CALCIUM 9.6 MG/DL (8.5-10.1)
[2021-10-23 20:29] LABS: GLUCOSE 93 MG/DL (70-105); TOTAL PROTEIN 6.9 GM/DL (6.4-8.2)
[2021-10-23 20:30] LABS: BILIRUBIN,TOTAL 0.5 MG/DL (0.1-1.0); CARBON DIOXIDE 23 MMOL/L (21-32)
[2021-10-23 20:33] LABS: ALKALINE PHOSPHATASE 43 U/L (40-136); GFR ESTIMATED 107
[2021-10-23 20:34] LABS: BUN/CREATININE RATIO 21
[2021-10-23 20:35] LABS: SALICYLATE < 5.0 MG/DL (5.0-20.0)
[2021-10-23 20:36] LABS: ALANINE AMINOTRANSFERASE 15 U/L (0-55)
[2021-10-23 20:42] LABS: ACETAMINOPHEN < 10 UG/ML (10-30)
[2021-10-23 21:03] LABS: TSH (THYROID ANALYZER) 2.05 UIU/ML (0.35-4.94)
[2021-10-23] MEDS ORDERED: ACETAMINOPHEN 500 MG TAB (TYLENOL) PO ONE (21:15)
--- NOTE | 2021-10-23 22:06 | ED General ---
General Chief Complaint: Overdose Stated Complaint: ACCIDENTAL OVERDOSE Nursing Triage Note: PT AMB TO RM 10 W REPORTS OF POSS OD. PT REPORTS SHE TOOK 2 TABS METOPROLOL 200MG ER AT 0900 AND 2 TABS METOPROLOL 200MG ER AT 1700. PT THOUGHT SHE WAS TAKING IBUPROFEN WHEN SHE TOOK THE TABS, DENIES SUICIDAL INTENT & THOUGHTS. PT DENIES SYMPTOMS AND PAIN. PT A&OX4. Source of Information: Patient History of Present Illness Date Seen by Provider: Oct 23, 2021 Time Seen by Provider: 19:48 Initial Comments PT ARRIVES VIA POV FROM HOME PT BELIEVES THAT SHE ACCIDENTALLY TOOK METOPROLOL TODAY INSTEAD OF IBUPROFEN STATES SHE BELIEVES THAT SHE TOOK 2 METOPROLOL 200 MG ER AT 0900 AND TOOK ANOTHER 2 TABLETS AT 1700 THIS EVENING, THINKING THEY WERE IBUPROFEN STATES SHE HAS NOT HAD ANY SYMPTOMS OF ANY KIND PT DENIES ANY SUICIDAL INTENT OR THOUGHTS PT BRINGS IN A BOTTLE OF METOPROLOL 200 MG ER FOR #90 WRITTEN ON 07/05/21--THERE ARE 2 PILLS LEFT IN THE BOTTLE. PT STATES SHE NORMALLY TAKES 1 METOPROLOL AROUND 8:00 PM EVERY EVENING AND TAKES HER OTHER BLOOD PRESSURE IN THE MORNING PT HAS BEEN TAKING IBUPROFEN FOR PAIN AFTER GETTING HER WISDOM TOOTH PULLED ON 10/06/21. PT HAS RX FOR IBUPROFEN 800 MG FOR #60 WRITTEN ON 07/09/21 WITH #7 PILLS LEFT IN THE BOTTLE. BOTTLES AND PILLS DO LOOK SIMILAR. PCP: DR. MCGEE Allergies and Home Medications Allergies Coded Allergies: No Known Drug Allergies (Verified , 07/06/15) Patient Home Medication List Albuterol Sulfate (Proair Hfa) 1 Puff Puff, 2 PUFF IH Q4H PRN for WHEEZING Prescribed by: MIQUEL CARDENAS on 09/26/19 1411 Alprazolam (Alprazolam) 0.5 Mg Tablet, 0.5 MG PO BID, (Reported) Entered as Reported by: MOE BRUCE on 12/01/15 1146 Amlodipine Besylate (Amlodipine Besylate) 10 Mg Tablet, 10 MG PO DAILY, (Reported) Entered as Reported by: KRYSTLE GARNETT on 08/04/15 0937 Baloxavir Marboxil (Xofluza) 40 Mg Tablet, 40 MG PO ONCE Prescribed by: MIQUEL CARDENAS on 09/26/19 1411 Escitalopram Oxalate (Escitalopram Oxalate) 10 Mg Tablet, 10 MG PO DAILY, (Reported) Entered as Reported by: MOE BRUCE on 12/01/15 1146 Famotidine (Pepcid) 20 Mg Tablet, 20 MG PO BID Prescribed by: BRANDEN CARDONA on 04/19/16516 Hydrochlorothiazide (Hydrochlorothiazide) 25 Mg Tablet, 25 MG PO DAILY, (Reported) Entered as Reported by: MOE BRUCE on 12/01/15 1146 Hydrocodone/Acetaminophen (Lorcet 5-325 mg Tablet) 1 Each Tablet, 1 EACH PO Q4- 6HR PRN for PAIN-MODERATE Prescribed by: MIQUEL CARDENAS on 03/28/20 1539 Metoprolol Succinate (Metoprolol Succinate) 50 Mg Tab.er.24h, 50 MG PO DAILY, (Reported) Entered as Reported by: KRYSTLE GARNETT on 09/04/15 0901 Prednisone (Prednisone) 20 Mg Tab, 40 MG PO DAILY Prescribed by: MIQUEL CARDENAS on 01/23/21 165 Sucralfate (Carafate) 1 Gm Tablet, 1 GM PO ACHS Prescribed by: BRANDEN CARDONA on 04/19/16516 Tramadol HCl (Tramadol HCl) 50 Mg Tablet, 50-100 MG PO Q6H PRN for ABDOMINAL PAIN Prescribed by: BRANDEN CARDONA on 04/19/16516 Tramadol HCl (Ultram) 50 Mg Tablet, 50 MG PO Q6H Prescribed by: MIQUEL CARDENAS on 01/23/21 165 Review of Systems Review of Systems Constitutional: no symptoms reported EENTM: see HPI (PAIN AT WISDOM TOOTH EXTRACTION SITE ON LEFT ) Respiratory: no symptoms reported Cardiovascular: no symptoms reported Gastrointestinal: no symptoms reported Genitourinary: no symptoms reported Musculoskeletal: no symptoms reported Skin: no symptoms reported Psychiatric/Neurological: No Symptoms Reported Hematologic/Lymphatic: No Symptoms Reported Immunological/Allergic: no symptoms reported Past Jgzxlkv-Pnrjrw-Vumypm Hx Patient Social History Tobacco Use?: Yes Tobacco type used: Cigarettes Smoking Status: Current Everyday Smoker Use of E-Cig and/or Vaping dev: No Substance use?: No Alcohol Use?: No Immunizations Up To Date Tetanus Booster (TDap): Unknown Influenza Vaccine Up-to-Date: No; Not Current Seasonal Allergies Seasonal Allergies: No Past Medical History Surgeries: Yes (uterine ablation, ) Abdominal, Section, Hysterectomy, Orthopedic Respiratory: Yes (SARCOIDOSIS, TOBACCOISM) Asthma, Chronic Bronchitis Currently Using CPAP: No Currently Using BIPAP: No Cardiac: Yes Coronary Artery Disease, Hypertension, Palpitations, Valvular Heart Disease Neurological: No Reproductive Disorders: Yes Female Reproductive Disorders: Menstrual Problems, Endometriosis, Ovarian Cyst Genitourinary: No Gastrointestinal: Yes (FATTY LIVER) Gastroesophageal Reflux Musculoskeletal: Yes (CHRONIC NECK PAIN, SARCOIDOSIS) Arthritis Endocrine: Yes (BORDERLINE DIABETES DIET CONTROLLED; MORBID OBESITY) Diabetes, Non-Insulin dep HEENT: No Cancer: No Psychosocial: Yes Anxiety, PTSD Integumentary: No Blood Disorders: Yes (ANEMIA) Adverse Reaction/Blood Tranf: No Family Medical History Cancer 09 BROTHER, , Age:40's - 50, Onset:40's - 50 Cardiovascular disease 03 FATHER Diabetes mellitus 03 FATHER Family history: Diabetes mellitus 03 FATHER Family history: Hypertension 03 FATHER Hypertension 03 FATHER No Pertinent Family Hx, Psychiatric Problems Physical Exam Vital Signs Vital Signs - First Documented 10/23/21 19:38 Temp 36.6 Pulse 87 Resp 20 B/P (MAP) 160/106 (124) Pulse Ox 99 O2 Delivery Room Air Capillary Refill : Less Than 3 Seconds Height, Weight, BMI Height: 5'6.00" Weight: 312lbs. 9.0oz. 141.993487dw; 46.00 BMI Method:Stated General Appearance: No Apparent Distress, WD/WN, Obese Neck: Normal Inspection Respiratory: Normal Breath Sounds, No Accessory Muscle Use, No Respiratory Distress Cardiovascular: Regular Rate, Rhythm, No Edema, No JVD, No Murmur, Normal Peripheral Pulses Gastrointestinal: Non Tender, Soft Back: No CVA Tenderness Extremity: Normal Inspection, No Pedal Edema Neurologic/Psychiatric: Alert, Oriented x3, No Motor/Sensory Deficits, Normal Mood/Affect, desk representative II-XII Norm as Tested Skin: Normal Color (PT IS BLACK), Warm/Dry, Tattoos/Piercings (TATTOOS) Progress/Results/Core Measures Suspected Sepsis SIRS Temperature: Pulse: 87 Respiratory Rate: 20 Laboratory Tests 10/23/21 20:08: White Blood Count 7.4 Blood Pressure 106 / Mean: Laboratory Tests 10/23/21 20:08: Creatinine 0.70, Platelet Count 315, Total Bilirubin 0.5 Results/Orders Lab Results Laboratory Tests Test 10/23/21 20:08 10/23/21 22:00 Range/Units White Blood Count 7.4 4.3-11.0 10^3/uL Red Blood Count 4.44 3.80-5.11 10^6/uL Hemoglobin 12.4 11.5-16.0 g/dL Hematocrit 39 35-52 % Mean Corpuscular Volume 87 80-99 fL Mean Corpuscular Hemoglobin 28 25-34 pg Mean Corpuscular Hemoglobin Concent 32 32-36 g/dL Red Cell Distribution Width 13.2 10.0-14.5 % Platelet Count 315 130-400 10^3/uL Mean Platelet Volume 8.3 L 9.0-12.2 fL Immature Granulocyte % (Auto) 0 % Neutrophils (%) (Auto) 53 42-75 % Lymphocytes (%) (Auto) 37 12-44 % Monocytes (%) (Auto) 7 0-12 % Eosinophils (%) (Auto) 2 0-10 % Basophils (%) (Auto) 1 0-10 % Neutrophils # (Auto) 3.9 1.8-7.8 10^3/uL Lymphocytes # (Auto) 2.7 1.0-4.0 10^3/uL Monocytes # (Auto) 0.5 0.0-1.0 10^3/uL Eosinophils # (Auto) 0.1 0.0-0.3 10^3/uL Basophils # (Auto) 0.0 0.0-0.1 10^3/uL Immature Granulocyte # (Auto) 0.0 0.0-0.1 10^3/uL Sodium Level 138 135-145 MMOL/L Potassium Level 3.6 3.6-5.0 MMOL/L Chloride Level 103 98-107 MMOL/L Carbon Dioxide Level 23 21-32 MMOL/L Anion Gap 12 5-14 MMOL/L Blood Urea Nitrogen 15 7-18 MG/DL Creatinine 0.70 0.60-1.30 MG/DL Estimat Glomerular Filtration Rate 107 BUN/Creatinine Ratio 21 Glucose Level 93 70-105 MG/DL Calcium Level 9.6 8.5-10.1 MG/DL Corrected Calcium 9.8 8.5-10.1 MG/DL Magnesium Level 1.7 1.6-2.4 MG/DL Total Bilirubin 0.5 0.1-1.0 MG/DL Aspartate Amino Transf (AST/SGOT) 12 5-34 U/L Alanine Aminotransferase (ALT/SGPT) 15 0-55 U/L Alkaline Phosphatase 43 40-136 U/L Total Protein 6.9 6.4-8.2 GM/DL Albumin 3.8 3.2-4.5 GM/DL TSH [place] Testing 2.05 0.35-4.94 UIU/ML Serum Test, Qualitative NEGATIVE NEGATIVE Salicylates Level < 5.0 L 5.0-20.0 MG/DL Acetaminophen Level < 10 L 10-30 UG/ML Serum Alcohol < 10 <10 MG/DL Urine Color YELLOW Urine Clarity CLEAR Urine pH 6.0 5-9 Urine Specific [place] 1.010 L 1.016-1.022 Urine Protein NEGATIVE NEGATIVE Urine Glucose (UA) NEGATIVE NEGATIVE Urine Ketones TRACE H NEGATIVE Urine Nitrite NEGATIVE NEGATIVE Urine Bilirubin NEGATIVE NEGATIVE Urine Urobilinogen 1.0 < = 1.0 MG/DL Urine Leukocyte Esterase NEGATIVE NEGATIVE Urine RBC (Auto) NEGATIVE NEGATIVE Urine RBC NONE /HPF Urine WBC NONE /HPF Urine Squamous Epithelial Cells 5-10 /HPF Urine Crystals NONE /LPF Urine Bacteria NEGATIVE /HPF Urine Casts NONE /LPF Urine Mucus SMALL H /LPF Urine Culture Indicated NO Urine Opiates Screen NEGATIVE NEGATIVE Urine Oxycodone Screen NEGATIVE NEGATIVE Urine Methadone Screen NEGATIVE NEGATIVE Urine Propoxyphene Screen NEGATIVE NEGATIVE Urine Barbiturates Screen NEGATIVE NEGATIVE Ur Tricyclic Antidepressants Screen NEGATIVE NEGATIVE Urine Phencyclidine Screen NEGATIVE NEGATIVE Urine Amphetamines Screen NEGATIVE NEGATIVE Urine Methamphetamines Screen NEGATIVE NEGATIVE Urine Benzodiazepines Screen POSITIVE H NEGATIVE Urine Cocaine Screen NEGATIVE NEGATIVE Urine Cannabinoids Screen NEGATIVE NEGATIVE My Orders Orders - BRIGHT HO K DO Urinalysis (10/23/21 19:51) Thyroid Analyzer (10/23/21 19:51) Drug Screen Stat (Urine) (10/23/21 19:51) Cbc With Automated Diff (10/23/21 19:51) Comprehensive Metabolic Panel (10/23/21 19:51) Alcohol (10/23/21 19:51) Acetaminophen (10/23/21 19:51) Salicylate (10/23/21 19:51) Ekg Tracing (10/23/21 19:51) Monitor-Rhythm Ecg Trace Only (10/23/21 19:51) Hcg,Qualitative Serum (10/23/21 19:51) Magnesium (10/23/21 20:24) Acetaminophen Tablet (Tylenol Tablet) (10/23/21 21:15) Ekg Tracing (10/23/21 21:31) Ekg Tracing (10/23/21 23:52) Ekg Tracing (10/24/21 01:20) Medications Given in ED Current Medications Medications Dose Ordered Sig/Beckie Route Start Time Stop Time Status Last Admin Dose Admin Acetaminophen 1,000 mg ONCE ONCE PO 10/23/21 21:15 10/23/21 21:16 DC 10/23/21 21:32 1,000 MG Vital Signs/I&O 10/23/21 19:38 Temp 36.6 Pulse 87 Resp 20 B/P (MAP) 160/106 (124) Pulse Ox 99 O2 Delivery Room Air O2 Flow Rate Capillary Refill : Less Than 3 Seconds Progress Note : Progress Note POISON CONTROL WAS CONTACTED AND RECOMMENDATIONS INCLUDE: EKG Q 2 HOURS, MONITORING FOR 8 HOURS FROM TIME OF LAST INGESTION. OTHER RECOMMENDATIONS NOTED. PT HAD NO SYMPTOMS OF ANY KIND DURING ER STAY NO HYPOTENSION OR BRADYCARDIA NO SIGNIFICANT CHANGES IN EKG, NO ARRHYTHMIAS AT ANY TIME, ECG Initial ECG Impression Date: Oct 23, 2021 Initial ECG Impression Time: 20:01 Initial ECG Rate: 78 Initial ECG Rhythm: Normal Sinus Initial ECG Intervals: CT (220) EKG : EKG Time: 21:54 Rate: 80 Rhythm: Normal Sinus Intervals: CT (233) Comment EKG # 3 AT 0009--HR 74, NSR, CT 231 EKG #4 AT 0132--HR 75, NSR, CT 235 Departure Impression Primary Impression: REPORTED ACCIDENTAL OVERDOSE OF METOPROLOL Disposition: 01 HOME, SELF-CARE Condition: Stable Departure-Patient Inst. Referrals: RALPH MCGEE DO (PCP/Family) Primary Care Physician Patient Instructions: Accidental Overdose, Adult ED Add. Discharge Instructions: RESUME YOUR REGULAR MEDICATIONS IN THE MORNING PRESCRIBED FOLLOW UP WITH YOUR DR NEEDED RETURN TO ER IF PROBLEMS All discharge instructions reviewed with patient and/or family. Voiced understanding. BRIGHT HO DO Oct 23, 2021 22:06
[2021-10-23 22:08] LABS: BILIRUBIN,URINE NEGATIVE (NEGATIVE); CLARITY,URINE CLEAR; COLOR,URINE YELLOW; GLUCOSE, URINE (UA) NEGATIVE (NEGATIVE); KETONES,URINE TRACE (NEGATIVE); LEUKOCYTE ESTERASE ,URINE NEGATIVE (NEGATIVE); NITRITE,URINE NEGATIVE (NEGATIVE); PROTEIN,URINE NEGATIVE (NEGATIVE)
[2021-10-23 22:15] LABS: BACTERIA,URINE NEGATIVE /HPF
[2021-10-23 22:26] LABS: AMPHETAMINE SCREEN, URINE NEGATIVE (NEGATIVE); BARBITURATE SCREEN URINE NEGATIVE (NEGATIVE); BENZODIAZEPINES SCREEN URINE POSITIVE (NEGATIVE); CANNABINOID SCREEN, URINE NEGATIVE (NEGATIVE); COCAINE SCREEN URINE NEGATIVE (NEGATIVE); METHADONE STAT NEGATIVE (NEGATIVE); METHAMPHETAMINE SCREEN URINE S NEGATIVE (NEGATIVE); OPIATE SCREEN URINE NEGATIVE (NEGATIVE); OXYCODONE STAT NEGATIVE (NEGATIVE); PROPOXYPHENE STAT NEGATIVE (NEGATIVE); TRICYCLIC ANTIDEPRESSANTS SCRE NEGATIVE (NEGATIVE)
== END 2021-10-24 01:49 | disposition home or self-care (01) ==
LOC: EDUNIT# 19:32 → ER 19:34
DX: T44.7X1A Poisoning by beta-adrenoreceptor antagonists, accidental (unintentional), initial encounter (principal); E66.01 Morbid (severe) obesity due to excess calories; F17.210 Nicotine dependence, cigarettes, uncomplicated; Z68.42 Body mass index [BMI] 45.0-49.9, adult
CPT/HCPCS: 80053; 80306; 81000; 83735; 84443; 84703; 85025; 93005 ×2; 93041; 99283; G0480 ×3; 36415; 80320; 80329

== ENCOUNTER 2022-01-31 09:10 | Emergency (ER) | payer MEDICARE, MEDICAID ==
[~2022-01-31] VITALS: Ht 162.6 cm; Wt 122.5 kg
[2022-01-31] MEDS ORDERED: KETOROLAC 30 MG/ML VIAL IVP STA (10:42)
--- NOTE | 2022-01-31 10:47 | ED Chest Pain ---
General Chief Complaint: Chest Pain Stated Complaint: CHEST/RIB PAIN Source: patient History of Present Illness Date Seen by Provider: Jan 31, 2022 Time Seen by Provider: 09:37 Allergies and Home Medications Allergies Coded Allergies: No Known Drug Allergies (Verified , 07/06/15) Patient Home Medication List Albuterol Sulfate (Proair Hfa) 1 Puff Puff, 2 PUFF IH Q4H PRN for WHEEZING Prescribed by: MIQUEL CARDENAS on 09/26/19 1411 Alprazolam (Alprazolam) 0.5 Mg Tablet, 0.5 MG PO BID, (Reported) Entered as Reported by: MOE BRUCE on 12/01/15 1146 Amlodipine Besylate (Amlodipine Besylate) 10 Mg Tablet, 10 MG PO DAILY, (Reported) Entered as Reported by: KRYSTLE GARNETT on 08/04/15 0937 Baloxavir Marboxil (Xofluza) 40 Mg Tablet, 40 MG PO ONCE Prescribed by: MIQUEL CARDENAS on 09/26/19 1411 Escitalopram Oxalate (Escitalopram Oxalate) 10 Mg Tablet, 10 MG PO DAILY, (Reported) Entered as Reported by: MOE BRUCE on 12/01/15 1146 Famotidine (Pepcid) 20 Mg Tablet, 20 MG PO BID Prescribed by: BRANDEN CARDONA on 04/19/16 0517 Hydrochlorothiazide (Hydrochlorothiazide) 25 Mg Tablet, 25 MG PO DAILY, (Reported) Entered as Reported by: MOE BRUCE on 12/01/15 1146 Hydrocodone/Acetaminophen (Lorcet 5-325 mg Tablet) 1 Each Tablet, 1 EACH PO Q4- 6HR PRN for PAIN-MODERATE Prescribed by: MIQUEL CARDENAS on 03/28/20 1539 Metoprolol Succinate (Metoprolol Succinate) 50 Mg Tab.er.24h, 50 MG PO DAILY, (Reported) Entered as Reported by: KRYSTLE GARNETT on 09/04/15 0901 Prednisone (Prednisone) 20 Mg Tab, 40 MG PO DAILY Prescribed by: MIQUEL CARDENAS on 01/23/21 1654 Sucralfate (Carafate) 1 Gm Tablet, 1 GM PO ACHS Prescribed by: BRANDEN CARDONA on 04/19/16 0517 Tramadol HCl (Tramadol HCl) 50 Mg Tablet, 50-100 MG PO Q6H PRN for ABDOMINAL PAIN Prescribed by: BRANDEN CARDONA on 04/19/16 0517 Tramadol HCl (Ultram) 50 Mg Tablet, 50 MG PO Q6H Prescribed by: MIQUEL CARDENAS on 01/23/21 5306 Past Pdbdcfo-Gtasjb-Afedpe Hx Patient Social History Tobacco Use?: No Smoking Status: Former Smoker Smokeless Tobacco Frequency: Never a User Use of E-Cig and/or Vaping dev: No Use of E-Cig and/or Vaping Jian: Never a User Substance use?: No Alcohol Use?: Yes Alcohol Frequency: Once in a while Pt feels they are or have been: No Immunizations Up To Date Tetanus Booster (TDap): Unknown Influenza Vaccine Up-to-Date: Yes; Up-to-Date Seasonal Allergies Seasonal Allergies: No Past Medical History Surgeries: Yes (uterine ablation, ) Abdominal, Section, Hysterectomy, Orthopedic Respiratory: Yes (SARCOIDOSIS, TOBACCOISM) Asthma, Chronic Bronchitis Currently Using CPAP: No Currently Using BIPAP: No Cardiac: Yes Coronary Artery Disease, Hypertension, Palpitations, Valvular Heart Disease Neurological: No Reproductive Disorders: Yes (FIBROIDS, MENORRHAGIA) Female Reproductive Disorders: Menstrual Problems, Endometriosis, Ovarian Cyst Genitourinary: No Gastrointestinal: Yes (FATTY LIVER) Gastroesophageal Reflux, Chronic Constipation Musculoskeletal: Yes (CHRONIC NECK PAIN, SARCOIDOSIS) Arthritis Endocrine: Yes (BORDERLINE DIABETES DIET CONTROLLED; MORBID OBESITY) Diabetes, Non-Insulin dep HEENT: No Cancer: No Psychosocial: Yes Anxiety, PTSD Integumentary: No Blood Disorders: Yes (ANEMIA) Adverse Reaction/Blood Tranf: No Family Medical History Cancer 09 BROTHER, , Age:40's - 50, Onset:40's - 50 Cardiovascular disease 03 FATHER Diabetes mellitus 03 FATHER Family history: Diabetes mellitus 03 FATHER Family history: Hypertension 03 FATHER Hypertension 03 FATHER No Pertinent Family Hx, Psychiatric Problems SOCIAL HISTORY: -SMOKES 1 PPD -DENIES ETOH USE -DENIES DRUG USE PAST SURGICAL HISTORY: -HERNIA REPAIR -LEFT SHOULDER SURGERY -LEFT OVARIAN CYST REMOVAL - X 2 -LEFT ARM FRACTURE/REPAIR -LAPAROSCOPY 12/07/15 Physical Exam Vital Signs Vital Signs - First Documented 01/31/22 09:48 Temp 36.9 Pulse 83 Resp 19 B/P (MAP) 147/99 (115) Pulse Ox 99 Capillary Refill : Less Than 3 Seconds Height, Weight, BMI Height: 5'6.00" Weight: 312lbs. 9.0oz. 141.664421wt; 46.00 BMI Method:Stated Progress/Results/Core Measures Results/Orders Lab Results Laboratory Tests Test 01/31/22 10:00 01/31/22 11:54 Range/Units White Blood Count 6.4 4.3-11.0 10^3/uL Red Blood Count 4.55 3.80-5.11 10^6/uL Hemoglobin 12.9 11.5-16.0 g/dL Hematocrit 40 35-52 % Mean Corpuscular Volume 87 80-99 fL Mean Corpuscular Hemoglobin 28 25-34 pg Mean Corpuscular Hemoglobin Concent 33 32-36 g/dL Red Cell Distribution Width 13.0 10.0-14.5 % Platelet Count 210 130-400 10^3/uL Mean Platelet Volume 8.9 L 9.0-12.2 fL Immature Granulocyte % (Auto) 1 % Neutrophils (%) (Auto) 58 42-75 % Lymphocytes (%) (Auto) 32 12-44 % Monocytes (%) (Auto) 7 0-12 % Eosinophils (%) (Auto) 2 0-10 % Basophils (%) (Auto) 1 0-10 % Neutrophils # (Auto) 3.3 1.8-7.8 10^3/uL Lymphocytes # (Auto) 1.9 1.0-4.0 10^3/uL Monocytes # (Auto) 0.4 0.0-1.0 10^3/uL Eosinophils # (Auto) 0.1 0.0-0.3 10^3/uL Basophils # (Auto) 0.0 0.0-0.1 10^3/uL Immature Granulocyte # (Auto) 0.0 0.0-0.1 10^3/uL Percent Immature Platelet Fraction 1.4 0.0-7.6 % Sodium Level 139 135-145 MMOL/L Potassium Level 3.6 3.6-5.0 MMOL/L Chloride Level 103 98-107 MMOL/L Carbon Dioxide Level 26 21-32 MMOL/L Anion Gap 10 5-14 MMOL/L Blood Urea Nitrogen 9 7-18 MG/DL Creatinine 0.67 0.60-1.30 MG/DL Estimat Glomerular Filtration Rate 108 BUN/Creatinine Ratio 13 Glucose Level 95 70-105 MG/DL Calcium Level 9.2 8.5-10.1 MG/DL Corrected Calcium 9.4 8.5-10.1 MG/DL Magnesium Level 1.8 1.6-2.4 MG/DL Total Bilirubin 0.5 0.1-1.0 MG/DL Aspartate Amino Transf (AST/SGOT) 16 5-34 U/L Alanine Aminotransferase (ALT/SGPT) 15 0-55 U/L Alkaline Phosphatase 56 40-136 U/L Total Creatine Kinase 264 H 29-168 U/L Creatine Kinase MB 0.7 <6.6 NG/ML Myoglobin 56.9 10.0-92.0 NG/ML Troponin I < 0.028 <0.028 NG/ML B-Type Natriuretic Peptide 13.5 <100.0 PG/ML Total Protein 7.5 6.4-8.2 GM/DL Albumin 3.7 3.2-4.5 GM/DL Amylase Level 76 25-125 U/L Lipase 13 8-78 U/L Urine Color YELLOW Urine Clarity CLEAR Urine pH 6.0 5-9 Urine Specific [place] 1.010 L 1.016-1.022 Urine Protein NEGATIVE NEGATIVE Urine Glucose (UA) NEGATIVE NEGATIVE Urine Ketones NEGATIVE NEGATIVE Urine Nitrite NEGATIVE NEGATIVE Urine Bilirubin NEGATIVE NEGATIVE Urine Urobilinogen 2.0 < = 1.0 MG/DL Urine Leukocyte Esterase NEGATIVE NEGATIVE Urine RBC (Auto) NEGATIVE NEGATIVE Urine RBC NONE /HPF Urine WBC NONE /HPF Urine Squamous Epithelial Cells RARE /HPF Urine Crystals NONE /LPF Urine Bacteria NEGATIVE /HPF Urine Casts NONE /LPF Urine Mucus NEGATIVE /LPF Urine Culture Indicated NO Urine Opiates Screen NEGATIVE NEGATIVE Urine Oxycodone Screen NEGATIVE NEGATIVE Urine Methadone Screen NEGATIVE NEGATIVE Urine Propoxyphene Screen NEGATIVE NEGATIVE Urine Barbiturates Screen NEGATIVE NEGATIVE Ur Tricyclic Antidepressants Screen NEGATIVE NEGATIVE Urine Phencyclidine Screen NEGATIVE NEGATIVE Urine Amphetamines Screen NEGATIVE NEGATIVE Urine Methamphetamines Screen NEGATIVE NEGATIVE Urine Benzodiazepines Screen POSITIVE H NEGATIVE Urine Cocaine Screen NEGATIVE NEGATIVE Urine Cannabinoids Screen NEGATIVE NEGATIVE My Orders Orders - BRIGHT HO DO Ekg Tracing (01/31/22 09:37) Monitor-Rhythm Ecg Trace Only (01/31/22 09:37) Ed Iv/Invasive Line Start (01/31/22 10:42) Chest 1 View, Ap/Pa Only (01/31/22 10:42) Amylase (01/31/22 10:42) Bnp [place] (01/31/22 10:42) Comprehensive Metabolic Panel (01/31/22 10:42) Creatine Kinase (01/31/22 10:42) Creatine Kinase Mb (01/31/22 10:42) Lipase (01/31/22 10:42) Magnesium (01/31/22 10:42) Myoglobin Serum (01/31/22 10:42) Troponin I [place] (01/31/22 10:42) Ketorolac Injection (Toradol Injection) (01/31/22 10:42) Cbc With Automated Diff (01/31/22 11:13) Ct Christine Chest/Noang Abd-Pelv W (01/31/22 11:36) Iohexol Injection (Omnipaque 350 Mg/Ml 1 (01/31/22 11:45) Di Iv Start (Assessment) .IV start (01/31/22 11:42) Received Contrast (Hold Metformin- Contr (01/31/22 11:45) Sodium Chloride Flush (Catheter Flush Sy (01/31/22 11:45) Ns (Ivpb) (Sodium Chloride 0.9% Ivpb Bag (01/31/22 11:45) Drug Screen Stat (Urine) (01/31/22 11:45) Ua Culture If Indicated (01/31/22 11:45) Medications Given in ED Current Medications Medications Dose Ordered Sig/Beckie Route Start Time Stop Time Status Last Admin Dose Admin Iohexol 100 ml ONCE ONCE IV 01/31/22 11:45 01/31/22 12:06 DC 01/31/22 12:43 86 ML Sodium Chloride 10 ml NEEDED PRN IV 01/31/22 11:45 01/31/22 12:43 10 ML Sodium Chloride 100 ml ONCE ONCE IV 01/31/22 11:45 01/31/22 12:06 DC 01/31/22 12:43 80 ML Vital Signs/I&O 01/31/22 01/31/22 09:48 11:09 Temp 36.9 36.8 Pulse 83 Resp 19 B/P (MAP) 147/99 (115) Pulse Ox 99 Blood Pressure Mean: 115 Departure Impression Primary Impression: Chest wall pain Additional Impression: Abdominal muscle strain Disposition: 01 HOME, SELF-CARE Condition: Improved Departure-Patient Inst. Decision time for Depature: 13:05 Referrals: RALPH MCGEE DO (PCP/Family) Primary Care Physician Patient Instructions: Muscle Strain ED, Abdominal Muscle Strain ED, Chest Pain That Is Not Caused by the Heart (DC) Add. Discharge Instructions: INCREASE YOUR FLUID INTAKE--DRINK ENOUGH SO YOU ARE URINATING EVERY 2-3 HOURS WHILE AWAKE. CONTINUE YOUR REGULAR MEDICATIONS PRESCRIBED ACTIVITIES TOLERATED FOLLOW UP WITH DR. MCGEE IN 3-4 DAYS IF NO BETTER, RETURN TO ER IF WORSE All discharge instructions reviewed with patient and/or family. Voiced understanding. Scripts Ketorolac Tromethamine (Ketorolac Tromethamine) 10 Mg Tablet 10 MG PO Q6H for Pain, #15 TAB Prov: BRIGHT HO DO 01/31/22 BRIGHT HO DO Jan 31, 2022 10:47
--- NOTE | 2022-01-31 11:09 | Diagnostic Imaging Report ---
INDICATION: Chest pain. Comparison is made with prior exam of 09/03/2015. FINDINGS: The heart size, mediastinal configuration, and pulmonary vascularity are within normal limits. There is no pleural effusion, pneumothorax, or pneumonia. The osseous structures are unremarkable. IMPRESSION: No acute cardiopulmonary abnormality. Dictated by: Dictated on workstation # [id number]
[2022-01-31 11:26] LABS: ALBUMIN 3.7 GM/DL (3.2-4.5)
[2022-01-31 11:27] LABS: CHLORIDE 103 MMOL/L (98-107); POTASSIUM 3.6 MMOL/L (3.6-5.0); SODIUM 139 MMOL/L (135-145)
[2022-01-31 11:28] LABS: AMYLASE 76 U/L (25-125); CALCIUM 9.2 MG/DL (8.5-10.1)
[2022-01-31 11:29] LABS: GLUCOSE 95 MG/DL (70-105); TOTAL PROTEIN 7.5 GM/DL (6.4-8.2)
[2022-01-31 11:30] LABS: CARBON DIOXIDE 26 MMOL/L (21-32)
[2022-01-31 11:31] LABS: BILIRUBIN,TOTAL 0.5 MG/DL (0.1-1.0)
[2022-01-31 11:32] LABS: ALKALINE PHOSPHATASE 56 U/L (40-136)
[2022-01-31 11:33] LABS: CREATININE SERUM 0.67 MG/DL (0.60-1.30); GFR ESTIMATED 108
[2022-01-31 11:34] LABS: BUN/CREATININE RATIO 13
[2022-01-31 11:35] LABS: MAGNESIUM 1.8 MG/DL (1.6-2.4)
[2022-01-31 11:36] LABS: ALANINE AMINOTRANSFERASE 15 U/L (0-55)
[2022-01-31 11:37] LABS: BASOPHILS % (AUTO) 1 % (0-10); CREATINE KINASE 264 U/L (29-168); LIPASE 13 U/L (8-78)
[2022-01-31 11:39] LABS: EOSINOPHILS # (AUTO) 0.1 10^3/uL (0.0-0.3); EOSINOPHILS % (AUTO) 2 % (0-10); LYMPHOCYTES # (AUTO) 1.9 10^3/uL (1.0-4.0); LYMPHOCYTES % (AUTO) 32 % (12-44); MEAN CORPUSCULAR HGB CONC 33 g/dL (32-36); MEAN CORPUSCULAR VOLUME 87 fL (80-99); MEAN PLATELET VOLUME 8.9 fL (9.0-12.2); MONOCYTES # (AUTO) 0.4 10^3/uL (0.0-1.0); MONOCYTES % (AUTO) 7 % (0-12); NEUTROPHILS # (AUTO) 3.3 10^3/uL (1.8-7.8); NEUTROPHILS % (AUTO) 58 % (42-75)
[2022-01-31 11:44] LABS: HEMATOCRIT 40 % (35-52); HEMOGLOBIN 12.9 g/dL (11.5-16.0); MEAN CORPUSCULAR HEMOGLOBIN 28 pg (25-34)
[2022-01-31 11:45] LABS: PLATELET COUNT 210 10^3/uL (130-400)
[2022-01-31] MEDS ORDERED: IOHEXOL 350 MG/ML 100 ML (OMNIPAQUE 350) VIAL IV ONE (11:45)
[2022-01-31] MEDS ORDERED: NS 100 ML (IVPB) BAG IV ONE (11:45)
[2022-01-31] MEDS ORDERED: CATHETER FLUSH 10 ML SYR IV PRN (11:45)
[2022-01-31] MEDS ORDERED: HOLD METFORMIN - RECEIVED CONTRAST 20 ML VIAL IV SCH (11:45)
[2022-01-31 11:46] LABS: WHITE BLOOD COUNT 6.4 10^3/uL (4.3-11.0)
[2022-01-31 11:47] LABS: CREATINE KINASE MB 0.7 NG/ML (<6.6)
[2022-01-31 12:23] LABS: BILIRUBIN,URINE NEGATIVE (NEGATIVE); CLARITY,URINE CLEAR; COLOR,URINE YELLOW; GLUCOSE, URINE (UA) NEGATIVE (NEGATIVE); KETONES,URINE NEGATIVE (NEGATIVE); LEUKOCYTE ESTERASE ,URINE NEGATIVE (NEGATIVE); NITRITE,URINE NEGATIVE (NEGATIVE); PROTEIN,URINE NEGATIVE (NEGATIVE)
[2022-01-31 12:30] LABS: BACTERIA,URINE NEGATIVE /HPF; SQUAMOUS EPITHELIAL CELL,UR RARE /HPF
[2022-01-31 12:35] LABS: AMPHETAMINE SCREEN, URINE NEGATIVE (NEGATIVE); BARBITURATE SCREEN URINE NEGATIVE (NEGATIVE); BENZODIAZEPINES SCREEN URINE POSITIVE (NEGATIVE); CANNABINOID SCREEN, URINE NEGATIVE (NEGATIVE); COCAINE SCREEN URINE NEGATIVE (NEGATIVE); METHADONE STAT NEGATIVE (NEGATIVE); OPIATE SCREEN URINE NEGATIVE (NEGATIVE); OXYCODONE STAT NEGATIVE (NEGATIVE); PROPOXYPHENE STAT NEGATIVE (NEGATIVE); TRICYCLIC ANTIDEPRESSANTS SCRE NEGATIVE (NEGATIVE)
--- NOTE | 2022-01-31 12:57 | Diagnostic Imaging Report ---
INDICATION: Chest pain and abdominal pain. CTA chest, abdomen and pelvis Thin axial sections through the chest, abdomen and pelvis are obtained following intravenous contrast bolus. Multiplanar MIP images were reconstructed and reviewed. All CT scans use one or more of the following dose optimizing techniques: automated exposure control, MA and/or KvP adjustment based on patient size and exam type or iterative reconstruction. COMPARISON: Comparison is made with prior CT chest study from 09/12/[address] abdomen and pelvis study from 03/28/2020. FINDINGS: CT ANGIOGRAM CHEST: Evaluation of the pulmonary arterial system is without evidence of thromboembolism. No filling defects are seen within central, lobar or segmental branches. Thoracic aorta is normal in caliber. No dissection is identified. No pericardial or pleural fluid is detected. No definite axillary, hilar or mediastinal lymphadenopathy is identified. Subpleural opacities described on prior CTs appear stable. Areas of scarring in the left upper lobe and left lower lobe appear stable. IMPRESSION: 1. No evidence of pulmonary embolism or acute aortic disease. 2. Stable chronic parenchymal changes since exam from 2018. CT ABDOMEN AND PELVIS: Diffuse low attenuation throughout the liver is noted, consistent with hepatic steatosis. Gallbladder is unremarkable. No biliary ductal dilatation is seen. Pancreas and spleen are unremarkable. No adrenal mass is detected. Kidneys are unremarkable. Mild hazy density in the central mesentery is similar to prior exam. Bowel loops are normal in caliber. There is no obstruction. No free fluid or fluid collection is seen. Aorta is nonaneurysmal. Bladder is decompressed. Bony structures are nonacute. IMPRESSION: 1. Hepatic steatosis. 2. No acute feature in the abdomen or pelvis is identified. Dictated by: Dictated on workstation # [id number]
[2022-01-31] MEDS ORDERED: KETO10TA PO (13:07)
[2022-01-31 13:23] VITALS: BP 147/99
== END 2022-01-31 13:22 | disposition home or self-care (01) ==
LOC: EDUNIT# 09:10 → ER 09:13
DX: S39.011A Strain of muscle, fascia and tendon of abdomen, initial encounter (principal); R07.89 Other chest pain; E66.01 Morbid (severe) obesity due to excess calories; Z68.42 Body mass index [BMI] 45.0-49.9, adult; Z87.891 Personal history of nicotine dependence; Z28.310 Unvaccinated for COVID-19; X58.XXXA Exposure to other specified factors, initial encounter
CPT/HCPCS: 36415; 71045; 71275; 74177; 80053; 80306; 81000; 82150; 82550; 82553; 83690; 83735; 83874; 83880; 84484; 85025; 93005; 93041

== ENCOUNTER → 2022-03-15 | Outpatient (CLI) | payer MEDICARE, MEDICAID ==
[~2022-03-15] MED LIST changes: -BALO40TA PO; +BALO40TA4 PO
--- NOTE | 2022-03-15 12:37 | Diagnostic Imaging Report ---
INDICATION: Routine screening. COMPARISON: 05/03/2019 and 10/31/2016. TECHNIQUE: 2D and 3D bilateral screening mammography was performed with CAD. FINDINGS: Both breasts are heterogeneously dense, limiting the sensitivity of mammography. There are benign calcifications in both breasts. No spiculated mass or malignant-appearing microcalcifications are seen. The axillae are unremarkable. IMPRESSION: No mammographic features suspicious for malignancy are identified. ACR BI-RADS Category 2: Benign findings. Result letter will be mailed to the patient. Note: At least 10% of breast cancer is not imaged by mammography. Dictated by: Dictated on workstation # [id number]
== END ==
LOC: RAD 10:30
PROVIDERS: ATTEND Family Medicine
DX: Z12.31 Encounter for screening mammogram for malignant neoplasm of breast (principal)
CPT/HCPCS: 77063; 77067

== ENCOUNTER 2022-08-26 03:36 | Emergency (ER) | payer MEDICARE, MEDICAID ==
[~2022-08-26] VITALS: Ht 162.6 cm; Wt 122.5 kg
[~2022-08-26 03:36] MED LIST changes: +ALBU8.5H6 IH; +ALBU8.5H6 INH; -RT-ALBUINH IH; -RT-ALBUINH INH
[2022-08-26 03:40] VITALS: BP 151/107
--- NOTE | 2022-08-26 03:53 | ED Lower Extremity ---
General Chief Complaint: Lower Extremity Stated Complaint: KNEE PAIN Source: patient, old records History of Present Illness Date Seen by Provider: Aug 26, 2022 Time Seen by Provider: 03:45 Initial Comments PT ARRIVES VIA EMS FROM HOME PT STATES 30 MINUTES AGO, SHE WAS LAYING IN BED AND SHE TURNED AND HER LEFT KNEE POPPED AND SHE HAS EXCRUCIATING PAIN IN HER KNEE AND CAN'T MOVE HER KNEE NO PARESTHESIAS , AND CAN MOVE HER FOOT AND TOES SHE HAS NOT TAKEN ANYTHING FOR PAIN SHE HAD SOME KIND OF PROBLEM WITH HER KNEE MANY YEARS AGO--DOES NOT REMEMBER WHAT WAS WRONG, DOES NOT REMEMBER IF SHE HAD SURGERY OR NOT, BUT STATES SHE HAD TO WEAR A CAST FOR SEVERAL WEEKS. ( OLD RECORDS LIST LEFT KNEE ARTHROSCOPY IN SURGICAL HISTORY) SHE DENIES ANY KNEE PROBLEMS SINCE THEN PCP: DR. MCGEE Allergies and Home Medications Allergies Coded Allergies: No Known Drug Allergies (Verified , 07/06/15) Patient Home Medication List Home Medication List Reviewed: Yes Albuterol Sulfate (Ventolin Hfa) 1 Puff Puff, 2 PUFF IH Q4H PRN for WHEEZING Prescribed by: MIQUEL CARDENAS on 09/26/19 1411 Alprazolam (Alprazolam) 0.5 Mg Tablet, 0.5 MG PO BID, (Reported) Entered as Reported by: MOE BRUCE on 12/01/15 1146 Amlodipine Besylate (Amlodipine Besylate) 10 Mg Tablet, 10 MG PO DAILY, (Reported) Entered as Reported by: KRYSTLE GARNETT on 08/04/15 0937 Baloxavir Marboxil (Xofluza) 40 Mg Tablet, 40 MG PO ONCE Prescribed by: MIQUEL CARDENAS on 09/26/19 1411 Escitalopram Oxalate (Escitalopram Oxalate) 10 Mg Tablet, 10 MG PO DAILY, (Reported) Entered as Reported by: MOE BRUCE on 12/01/15 1146 Famotidine (Pepcid) 20 Mg Tablet, 20 MG PO BID Prescribed by: BRANDEN CARDONA on 04/19/16 0517 Hydrochlorothiazide (Hydrochlorothiazide) 25 Mg Tablet, 25 MG PO DAILY, (Reported) Entered as Reported by: MOE BRUCE on 12/01/15 1146 Hydrocodone/Acetaminophen (Lorcet 5-325 mg Tablet) 1 Each Tablet, 1 EACH PO Q4- 6HR PRN for PAIN-MODERATE Prescribed by: MIQUEL CARDENAS on 03/28/20 1539 Ketorolac Tromethamine (Ketorolac Tromethamine) 10 Mg Tablet, 10 MG PO Q6H Prescribed by: BRIGHT HO on 01/31/22 1307 Meloxicam (Meloxicam) 15 Mg Tablet, 15 MG PO DAILY Prescribed by: BRIGHT HO on 08/26/22 0409 Metoprolol Succinate (Metoprolol Succinate) 50 Mg Tab.er.24h, 50 MG PO DAILY, (Reported) Entered as Reported by: KRYSTLE GARNETT on 09/04/15 0901 Prednisone (Prednisone) 20 Mg Tab, 40 MG PO DAILY Prescribed by: MIQUEL CARDENAS on 01/23/21 1654 Sucralfate (Carafate) 1 Gm Tablet, 1 GM PO ACHS Prescribed by: BRANDEN CARDONA on 04/19/16 0517 Tramadol HCl (Tramadol HCl) 50 Mg Tablet, 50-100 MG PO Q6H PRN for ABDOMINAL PAIN Prescribed by: BRANDEN CARDONA on 04/19/16 0517 Tramadol HCl (Ultram) 50 Mg Tablet, 50 MG PO Q6H Prescribed by: MIQUEL CARDENAS on 01/23/21 1654 Tramadol HCl (Tramadol HCl) 50 Mg Tablet, 50 MG PO Q6H PRN for PAIN Prescribed by: BRIGHT HO on 08/26/22 0410 Review of Systems Constitutional: no symptoms reported Musculoskeletal: see HPI Skin: no symptoms reported Psychiatric/Neurological: No Symptoms Reported Past Ypgtype-Kdrgeh-Sauxqd Hx Patient Social History Tobacco Use?: No Smoking Status: Former Smoker Substance use?: No Alcohol Use?: Yes Alcohol Frequency: Once in a while Pt feels they are or have been: No Immunizations Up To Date Tetanus Booster (TDap): Unknown First/Initial COVID19 Vaccinat: x2 Seasonal Allergies Seasonal Allergies: No Past Medical History Surgery/Hospitalization HX: hysterectomy, c-sect, left knee arthroscopy, asthma, bronchitis, anxiety, ptsd, htn, gerd, cad, constipation. Surgeries: Yes (uterine ablation, ) Abdominal, Section, Hysterectomy, Orthopedic Respiratory: Yes (SARCOIDOSIS, TOBACCOISM) Asthma, Chronic Bronchitis Currently Using CPAP: No Currently Using BIPAP: No Cardiac: Yes Coronary Artery Disease, Hypertension, Palpitations, Valvular Heart Disease Neurological: No Reproductive Disorders: Yes (FIBROIDS, MENORRHAGIA) Female Reproductive Disorders: Menstrual Problems, Endometriosis, Ovarian Cyst Genitourinary: No Gastrointestinal: Yes (FATTY LIVER) Gastroesophageal Reflux, Chronic Constipation Musculoskeletal: Yes (CHRONIC NECK PAIN, SARCOIDOSIS) Arthritis Endocrine: Yes (BORDERLINE DIABETES DIET CONTROLLED; MORBID OBESITY) Diabetes, Non-Insulin dep HEENT: No Cancer: No Psychosocial: Yes Anxiety, PTSD Integumentary: No Blood Disorders: Yes (ANEMIA) Adverse Reaction/Blood Tranf: No Family Medical History Cancer 09 BROTHER, , Age:40's - 50, Onset:40's - 50 Cardiovascular disease 03 FATHER Diabetes mellitus 03 FATHER Family history: Diabetes mellitus 03 FATHER Family history: Hypertension 03 FATHER Hypertension 03 FATHER No Pertinent Family Hx, Psychiatric Problems SOCIAL HISTORY: -SMOKES 1 PPD -DENIES ETOH USE -DENIES DRUG USE PAST SURGICAL HISTORY: -HERNIA REPAIR -LEFT SHOULDER SURGERY -LEFT OVARIAN CYST REMOVAL - X 2 -LEFT ARM FRACTURE/REPAIR -LAPAROSCOPY 12/07/15 Physical Exam Vital Signs Vital Signs - First Documented 08/26/22 03:40 Temp 35.9 Pulse 80 Resp 16 B/P (MAP) 151/107 (122) Pulse Ox 99 O2 Delivery Room Air Capillary Refill : Height, Weight, BMI Height: 5'6.00" Weight: 312lbs. 9.0oz. 141.778951km; 46.00 BMI Method:Stated General Appearance: WD/WN, no apparent distress, obese, other (SITTING UP, PLEASANT, DOES NOT APPEAR TO BE IN ANY DISCOMFORT OR DISTRESS. ) Knees: left knee bone tenderness, left knee pain, left knee soft tissue tenderness, left knee swelling, left knee other (DIFFUSE TENDERNESS TO LEFT KNEE. VERY LIMITED ROM IN ALL DIRECTIONS DUE TO PAIN. UNABLE TO DETERMINE LIGAMENT LAXITY DUE TO PAIN. ) Procedures/Interventions Splinting and Joint Reduction : Shane wrap: Yes Ordered: Walker Progress/Results/Core Measures Results/Orders My Orders Orders - BRIGHT HO DO Knee, Left, 3 Views (08/26/22 03:45) Shane Bandage (08/26/22 03:59) Ketorolac Injection (Toradol Injection) (08/26/22 04:15) Rx-Tramadol Hcl (Rx-Ultram) (08/26/22 04:05) Knee Immobilizer (08/26/22 04:06) Walker (08/26/22 04:06) Medications Given in ED Vital Signs/I&O 08/26/22 03:40 Temp 35.9 Pulse 80 Resp 16 B/P (MAP) 151/107 (122) Pulse Ox 99 O2 Delivery Room Air Progress Progress Note : Progress Note SHANE WRAP APPLIED KNEE IMMOBILIZER WOULD NOT ACCOMODATE PT'S BODY HABITUS SENT HOME WITH WALKER AND ICE PACK. WALKER TRAINING DONE. REVIEWED XRAY FINDINGS, ANTICIPATED COURSE, MEDICATIONS, SYMPTOMATIC TREATMENT, NEED FOR FOLLOW UP--REFERRED TO ORTHOPEDIC SURGEON, AND RETURN PRECAUTIONS. REVIEWED PRIOR RECORDS, MOST ARE ER VISITS FOR VARIOUS COMPLAINTS. REVIEWED ADMITS, H&P'S, TESTS/PROCEDURES, CONSULTS AND DISCHARGE SUMMARIES Diagnostic Imaging Comments XRAYS LEFT KNEE--PENDING RADIOLOGIST REVIEW -NO ACUTE PROCESS, BUT SIGNIFICANT DEGENERATIVE/ARTHRITIC CHANGES, MUCH WORSE THAN PRIOR KNEE XRAY IN 2014. Reviewed: Reviewed by Me Departure Impression Primary Impression: Strain of left knee Disposition: 01 HOME, SELF-CARE Condition: Stable Departure-Patient Inst. Decision time for Depature: 04:05 Referrals: RALPH MCGEE DO (PCP/Family) Primary Care Physician AYDIN BARROS MD Patient Instructions: Getting In and Out of a Tub or Shower With Walker, Going Up and Down Curbs or Stairs With a Walker or Crutches, How to Use a Walker, How to Use an Elastic Bandage, Knee Pain, Using Cold for Pain Add. Discharge Instructions: SHANE WRAP TO KNEE AT ALL TIMES ELEVATE LEG MUCH POSSIBLE ICE TO AREA AT 20 MINUTE INTERVALS USE WALKER AT ALL TIMES, WITH LIMITED WEIGHT BEARING ON LEFT LEG FOLLOW UP WITH DR. BARROS NEXT WEEK FOR FURTHER CARE--CALL IN THE MORNING TO SCHEDULE APPOINTMENT. All discharge instructions reviewed with patient and/or family. Voiced un derstanding. Scripts Meloxicam (Meloxicam) 15 Mg Tablet 15 MG PO DAILY, #10 TAB Prov: BRIGHT HO DO 08/26/22 Tramadol HCl (Tramadol HCl) 50 Mg Tablet 50 MG PO Q6H PRN for PAIN for 3 Days, #20 TAB 0 Refills Prov: BRIGHT HO DO 08/26/22 BRIGHT HO DO Aug 26, 2022 03:53
[2022-08-26] MEDS ORDERED: MELO15TA39 PO (04:09)
[2022-08-26] MEDS ORDERED: TRM50T PO (04:09)
[2022-08-26] MEDS ORDERED: KETOROLAC 60 MG/2 ML VIAL IM ONE (04:15)
--- NOTE | 2022-08-26 06:11 | Diagnostic Imaging Report ---
INDICATION: Left knee pain, worsening symptoms. TECHNIQUE: 3 views of the left knee CORRELATION STUDY: 09/15/2014 FINDINGS: Severely advanced tricompartment degenerative changes are present. This includes joint space narrowing, osteophyte formation and loss of normal smooth cortical margins. Slight depression of the lateral tibial plateau. Overall findings have significantly progressed since prior and appear most severe at the patellofemoral compartment. No acute bony abnormality. Question calcified intra-articular loose body suspected. Small amount of edema and effusion. IMPRESSION: 1. Severely advanced tricompartment degenerative changes left knee, progressed from prior. Dictated by: Dictated on workstation # [id number]
== END 2022-08-26 04:22 | disposition home or self-care (01) ==
LOC: EDUNIT# 03:36 → ER 03:38
DX: S86.912A Strain of unspecified muscle(s) and tendon(s) at lower leg level, left leg, initial encounter (principal); E66.01 Morbid (severe) obesity due to excess calories; Z68.42 Body mass index [BMI] 45.0-49.9, adult; Z87.891 Personal history of nicotine dependence; X50.1XXA Overexertion from prolonged static or awkward postures, initial encounter
CPT/HCPCS: 73562

== ENCOUNTER 2022-11-07 10:40 | Emergency (ER) | payer MEDICARE, MEDICAID ==
[~2022-11-07] VITALS: Ht 162.5 cm; Wt 127.0 kg
[~2022-11-07 10:40] MED LIST changes: -MELA1TAB20 PO; +MELA1TAB72 PO; +MELO15TA39 PO
--- NOTE | 2022-11-07 11:19 | ED Upper Extremity ---
General Chief Complaint: Upper Extremity Stated Complaint: RT ARM PAIN Nursing Triage Note: PATIENT AMBULATORY TO TRIAGE ROOM WITH A C/O RIGHT UPPER ARM PAIN FOR 7 DAYS. STATES HAS HAD INCREASED SWELLING IN HER HAND BUT DENIES NUMBNESS OR TINGLING. Source: patient Exam Limitations: no limitations History of Present Illness Date Seen by Provider: Nov 07, 2022 Time Seen by Provider: 11:15 Initial Comments Patient is a 47-year-old female with a history of sarcoidosis who presents ED with right upper arm pain. Pain over the past 7 days. She states initially started a few days prior to that with some tightness in her neck which she thought she may have slept wrong. Few days after started having a numbness tingling sharp pain radiating from the right shoulder to the right elbow. Now pain is radiating to the right dorsum hand. She denies of any trauma. She believes her right arm is a little more swollen. Denies any redness or bruising or history of DVT to this right arm. She states she is able to to pick things up and have appropriate strength. She states the pain is constant difficulty sleeping on the right arm. She went to her primary care physician Dr. Mcgee last week was prescribed tramadol and a muscle relaxer without much improvement. She denies of any recent travel surgeries, history of coronary artery disease, CHF, COPD. She denies of any specific chest pain at this time with this arm pain. The neck pain has improved. Denies fever, chills, nausea vomit, diarrhea, abdominal pain, history of cancer, headache, unilateral muscle weakness, facial droop Allergies and Home Medications Allergies Coded Allergies: No Known Drug Allergies (Verified , 11/07/22) Patient Home Medication List Home Medication List Reviewed: Yes Albuterol Sulfate (Ventolin Hfa) 1 Puff Puff, 2 PUFF IH Q4H PRN for WHEEZING Prescribed by: MIQUEL CARDENAS on 09/26/19 1411 Alprazolam (Alprazolam) 0.5 Mg Tablet, 0.5 MG PO BID, (Reported) Entered as Reported by: MOE BRUCE on 12/01/15 1146 Amlodipine Besylate (Amlodipine Besylate) 10 Mg Tablet, 10 MG PO DAILY, (Reported) Entered as Reported by: KRYSTLE GARNETT on 08/04/15 0937 Baloxavir Marboxil (Xofluza) 40 Mg Tablet, 40 MG PO ONCE Prescribed by: MIQUEL CARDENAS on 09/26/19 1411 Escitalopram Oxalate (Escitalopram Oxalate) 10 Mg Tablet, 10 MG PO DAILY, (Reported) Entered as Reported by: MOE BRUCE on 12/01/15 1146 Famotidine (Pepcid) 20 Mg Tablet, 20 MG PO BID Prescribed by: BRANDEN CARDONA on 04/19/16 05 Hydrochlorothiazide (Hydrochlorothiazide) 25 Mg Tablet, 25 MG PO DAILY, (Reported) Entered as Reported by: MOE BRUCE on 12/01/15 1146 Hydrocodone/Acetaminophen (Lorcet 5-325 mg Tablet) 1 Each Tablet, 1 EACH PO Q4- 6HR PRN for PAIN-MODERATE Prescribed by: MIQUEL CARDENAS on 03/28/20 1539 Ketorolac Tromethamine (Ketorolac Tromethamine) 10 Mg Tablet, 10 MG PO Q6H Prescribed by: BRIGHT HO on 01/31/22 1307 Meloxicam (Meloxicam) 15 Mg Tablet, 15 MG PO DAILY Prescribed by: BRIGHT HO on 08/26/22 0409 Metoprolol Succinate (Metoprolol Succinate) 50 Mg Tab.er.24h, 50 MG PO DAILY, (Reported) Entered as Reported by: KRYTSLE GARNETT on 09/04/15 0901 Prednisone (Prednisone) 20 Mg Tab, 40 MG PO DAILY Prescribed by: MIQUEL CARDENAS on 01/23/21 1654 Sucralfate (Carafate) 1 Gm Tablet, 1 GM PO ACHS Prescribed by: BRANDEN CARDONA on 04/19/16516 Tramadol HCl (Tramadol HCl) 50 Mg Tablet, 50-100 MG PO Q6H PRN for ABDOMINAL PAIN Prescribed by: BRANDEN CARDONA on 04/19/16516 Tramadol HCl (Ultram) 50 Mg Tablet, 50 MG PO Q6H Prescribed by: MIQUEL CARDENAS on 01/23/21 165 Tramadol HCl (Tramadol HCl) 50 Mg Tablet, 50 MG PO Q6H PRN for PAIN Prescribed by: BRIGHT HO on 08/26/22 0410 Review of Systems Constitutional: No chills, No diaphoresis, No malaise, No weakness EENTM: No blurred vision, No double vision Respiratory: No cough, No dyspnea on exertion, No short of breath, No stridor, No wheezing Cardiovascular: No chest pain Gastrointestinal: No abdominal pain, No heartburn Genitourinary: No decreased output, No discharge, No dysuria Musculoskeletal: No back pain, No joint pain; muscle pain, muscle stiffness Skin: No change in color, No change in hair/nails All Other Systems Reviewed Negative Unless Noted: Yes Past Unhjecd-Iihdoa-Srmfww Hx Patient Social History Tobacco Use?: Yes Tobacco type used: Cigarettes Smoking Status: Current Everyday Smoker Use of E-Cig and/or Vaping dev: No Substance use?: No Alcohol Use?: Yes Alcohol Frequency: Rarely Pt feels they are or have been: No Immunizations Up To Date Tetanus Booster (TDap): Unknown Influenza Vaccine Up-to-Date: No; Not Current First/Initial COVID19 Vaccinat: DENIES Seasonal Allergies Seasonal Allergies: No Past Medical History Surgery/Hospitalization HX: HTN, NIDDM SXHX: COMPLETE HYSTER, 2 C-SECT, ORTHO LEFT ARM /C HARDWARE Surgeries: Yes (uterine ablation, ) Abdominal, Section, Hysterectomy, Orthopedic Respiratory: Yes (SARCOIDOSIS, TOBACCOISM) Asthma, Chronic Bronchitis Currently Using CPAP: No Currently Using BIPAP: No Cardiac: Yes Coronary Artery Disease, Hypertension, Palpitations, Valvular Heart Disease Neurological: No Reproductive Disorders: Yes (FIBROIDS, MENORRHAGIA) Female Reproductive Disorders: Menstrual Problems, Endometriosis, Ovarian Cyst Genitourinary: No Gastrointestinal: Yes (FATTY LIVER) Gastroesophageal Reflux, Chronic Constipation Musculoskeletal: Yes (CHRONIC NECK PAIN, SARCOIDOSIS) Arthritis Endocrine: Yes (BORDERLINE DIABETES DIET CONTROLLED; MORBID OBESITY) Diabetes, Non-Insulin dep HEENT: No Cancer: No Psychosocial: Yes Anxiety, PTSD Integumentary: No Blood Disorders: Yes (ANEMIA) Adverse Reaction/Blood Tranf: No Family Medical History Cancer 09 BROTHER, , Age:40's - 50, Onset:40's - 50 Cardiovascular disease 03 FATHER Diabetes mellitus 03 FATHER Family history: Diabetes mellitus 03 FATHER Family history: Hypertension 03 FATHER Hypertension 03 FATHER No Pertinent Family Hx, Psychiatric Problems SOCIAL HISTORY: -SMOKES 1 PPD -DENIES ETOH USE -DENIES DRUG USE PAST SURGICAL HISTORY: -HERNIA REPAIR -LEFT SHOULDER SURGERY -LEFT OVARIAN CYST REMOVAL - X 2 -LEFT ARM FRACTURE/REPAIR -LAPAROSCOPY 12/07/15 Physical Exam Vital Signs Vital Signs - First Documented 4/3/23 10:55 Temp 37.0 Pulse 84 Resp 16 B/P (MAP) 166/105 (125) Pulse Ox 99 O2 Delivery Room Air Capillary Refill : Less Than 3 Seconds Height, Weight, BMI Height: 5'6.00" Weight: 312lbs. 9.0oz. 141.574668ba; 48.00 BMI Method:Stated General Appearance: WD/WN, no apparent distress HEENT: PERRL/EOMI, normal ENT inspection, TMs normal, pharynx normal Neck: non-tender, full range of motion, supple, normal inspection Cardiovascular: regular rate, rhythm, no edema, no gallop, no JVD Respiratory: chest non-tender, lungs clear, normal breath sounds, no respiratory distress Gastrointestinal: normal bowel sounds, non tender, soft, no organomegaly Back: normal inspection, no CVA tenderness, no vertebral tenderness Shoulder: soft tissue tenderness (Tenderness to palpate the right anterior lateral shoulder, right upper arm to the elbow. No significant swelling bruising or redness. Normal active range of motion the right shoulder) Elbow/Forearm: normal ROM, Right, soft tissue tenderness (Soft tissue ten derness to the right lateral elbow, right proximal elbow. Strength with flexion extension 5 out of 5.) Wrist: Yes no evidence of injury, Yes normal ROM, Yes swelling (Very minimal swelling to the right dorsum wrist) Hand: normal inspection, non-tender, no evidence of injury, normal ROM, Right Neurologic/Psychiatric: band attacher II-XII nml as tested, no motor/sensory deficits, alert, normal mood/affect, oriented x 3 Skin: normal color, warm/dry Progress/Results/Core Measures Results/Orders Lab Results Laboratory Tests Test 11/07/22 11:25 Range/Units White Blood Count 6.2 4.3-11.0 10^3/uL Red Blood Count 4.49 3.80-5.11 10^6/uL Hemoglobin 12.7 11.5-16.0 g/dL Hematocrit 39 35-52 % Mean Corpuscular Volume 87 80-99 fL Mean Corpuscular Hemoglobin 28 25-34 pg Mean Corpuscular Hemoglobin Concent 33 32-36 g/dL Red Cell Distribution Width 13.0 10.0-14.5 % Platelet Count 262 130-400 10^3/uL Mean Platelet Volume 8.6 L 9.0-12.2 fL Immature Granulocyte % (Auto) 1 % Neutrophils (%) (Auto) 55 42-75 % Lymphocytes (%) (Auto) 34 12-44 % Monocytes (%) (Auto) 7 0-12 % Eosinophils (%) (Auto) 2 0-10 % Basophils (%) (Auto) 1 0-10 % Neutrophils # (Auto) 3.4 1.8-7.8 10^3/uL Lymphocytes # (Auto) 2.1 1.0-4.0 10^3/uL Monocytes # (Auto) 0.4 0.0-1.0 10^3/uL Eosinophils # (Auto) 0.2 0.0-0.3 10^3/uL Basophils # (Auto) 0.0 0.0-0.1 10^3/uL Immature Granulocyte # (Auto) 0.0 0.0-0.1 10^3/uL Erythrocyte Sedimentation Rate 35 H 0-20 MM/HR Sodium Level 141 135-145 MMOL/L Potassium Level 3.5 L 3.6-5.0 MMOL/L Chloride Level 107 98-107 MMOL/L Carbon Dioxide Level 25 21-32 MMOL/L Anion Gap 9 5-14 MMOL/L Blood Urea Nitrogen 15 7-18 MG/DL Creatinine 0.62 0.60-1.30 MG/DL Estimat Glomerular Filtration Rate 110 BUN/Creatinine Ratio 24 Glucose Level 89 70-105 MG/DL Calcium Level 9.1 8.5-10.1 MG/DL Corrected Calcium 9.2 8.5-10.1 MG/DL Total Bilirubin 0.6 0.1-1.0 MG/DL Aspartate Amino Transf (AST/SGOT) 11 5-34 U/L Alanine Aminotransferase (ALT/SGPT) 17 0-55 U/L Alkaline Phosphatase 50 40-136 U/L Troponin I < 0.028 <0.028 NG/ML C-Reactive Protein High Sensitivity 2.45 H 0.00-0.50 MG/DL Total Protein 7.3 6.4-8.2 GM/DL Albumin 3.9 3.2-4.5 GM/DL My Orders Orders - DELMA BARRON Ekg Tracing (11/07/22 11:13) Troponin I [place] (11/07/22 11:13) Cbc With Automated Diff (11/07/22 11:13) Comprehensive Metabolic Panel (11/07/22 11:13) Hs C Reactive Protein (11/07/22 11:13) Erythrocyte Sedimentation Rate (11/07/22 11:13) Us Venous Upper Ext Rt (11/07/22 11:13) Chest 1 View, Ap/Pa Only (11/07/22 11:19) Vital Signs/I&O 11/07/22 10:55 Temp 37.0 Pulse 84 Resp 16 B/P (MAP) 166/105 (125) Pulse Ox 99 O2 Delivery Room Air Blood Pressure Mean: 125 Comment Sinus rhythm with first-degree AV block, 73 bpm, QRS duration 89 MS, QTc 424 MS Departure Communication (PCP) Patient presents ED with right arm pain. Sharp shooting pain from right shoulder to right lateral elbow and to right hand. Denies of any specific injury. Started 1 week ago. She states 2 days prior she had slight discomfort in the right side of her neck. Unclear if she slept wrong. Denies of any specific injury. She does have appropriate strength of the right upper extremity. No chest pain or shortness of breath. No known cardiac history. She has no unilateral muscle weakness, visual changes, facial droop, headache suggesting stroke. Due to current presentation ultrasound to rule out DVT, cardiac work-up for atypical chest pain. EKG showed sinus rhythm with first- degree AV block. No evidence of arrhythmia, ST elevation or depression. Chest x-ray was negative for mass, pneumothorax. CBC, CMP grossly unremarkable. Normal troponin. Patient refused anything for pain. Currently on tramadol and muscle relaxer. Feel that patient pain is more radiculopathy type pain versus muscular. I did discuss heat, IcyHot stretching continue with your pain regiment. Further evaluation with nerve conduction study or MRI. She does have appropriate range of motion of her right shoulder and elbow with no joint swelling, redness suggesting arthritic, reactive. Did add ESR CRP with a CRP of 2, ESR 35 not significantly elevated. This does not appear to be a inflammatory response at this time. If any worsening symptoms return back to ED for further evaluation. Impression Primary Impression: Arm pain Disposition: 01 HOME, SELF-CARE Condition: Stable Departure-Patient Inst. Decision time for Depature: 12:33 Referrals: RALPH MCGEE DO (PCP/Family) Primary Care Physician Patient Instructions: Radiculopathy (DC) Add. Discharge Instructions: Recommend heat, IcyHot, and your pain medication provided by your primary care physician. Further evaluation may be warranted with nerve conduction study or imaging of the neck. If any worsening symptoms return back to ED for further evaluation. All discharge instructions reviewed with patient and/or family. Voiced under standing. DELMA BARRON Nov 07, 2022 11:19
[2022-11-07 11:36] LABS: BASOPHILS % (AUTO) 1 % (0-10); EOSINOPHILS # (AUTO) 0.2 10^3/uL (0.0-0.3); EOSINOPHILS % (AUTO) 2 % (0-10); HEMATOCRIT 39 % (35-52); HEMOGLOBIN 12.7 g/dL (11.5-16.0); LYMPHOCYTES # (AUTO) 2.1 10^3/uL (1.0-4.0); LYMPHOCYTES % (AUTO) 34 % (12-44); MEAN CORPUSCULAR HEMOGLOBIN 28 pg (25-34); MEAN CORPUSCULAR HGB CONC 33 g/dL (32-36); MEAN CORPUSCULAR VOLUME 87 fL (80-99); MEAN PLATELET VOLUME 8.6 fL (9.0-12.2); MONOCYTES # (AUTO) 0.4 10^3/uL (0.0-1.0); MONOCYTES % (AUTO) 7 % (0-12); NEUTROPHILS # (AUTO) 3.4 10^3/uL (1.8-7.8); NEUTROPHILS % (AUTO) 55 % (42-75); PLATELET COUNT 262 10^3/uL (130-400); WHITE BLOOD COUNT 6.2 10^3/uL (4.3-11.0)
[2022-11-07 11:46] LABS: ALBUMIN 3.9 GM/DL (3.2-4.5); CHLORIDE 107 MMOL/L (98-107); POTASSIUM 3.5 MMOL/L (3.6-5.0); SODIUM 141 MMOL/L (135-145)
[2022-11-07 11:47] LABS: CALCIUM 9.1 MG/DL (8.5-10.1)
[2022-11-07 11:48] LABS: GLUCOSE 89 MG/DL (70-105)
[2022-11-07 11:49] LABS: TOTAL PROTEIN 7.3 GM/DL (6.4-8.2)
[2022-11-07 11:50] LABS: BILIRUBIN,TOTAL 0.6 MG/DL (0.1-1.0); CARBON DIOXIDE 25 MMOL/L (21-32)
[2022-11-07 11:52] LABS: ALKALINE PHOSPHATASE 50 U/L (40-136); CREATININE SERUM 0.62 MG/DL (0.60-1.30); GFR ESTIMATED 110
[2022-11-07 11:53] LABS: BUN/CREATININE RATIO 24
[2022-11-07 11:55] LABS: ALANINE AMINOTRANSFERASE 17 U/L (0-55)
[2022-11-07 11:59] LABS: ERYTHROCYTE SEDIMENTATION RATE 35 MM/HR (0-20)
--- NOTE | 2022-11-07 12:06 | Diagnostic Imaging Report ---
INDICATION: Right arm pain COMPARISON: 01/31/2022 TECHNIQUE: Single radiograph of the chest dated 11/07/2022. FINDINGS: The cardiac silhouette is upper limits of normal in size. No significant pulmonary vascular congestion. The lungs are clear of focal pulmonary opacity. No pleural effusion. No pneumothorax. No acute osseous abnormality. IMPRESSION: Stable appearing examination without acute cardiopulmonary abnormality. Dictated by: Dictated on workstation # [id number]
--- NOTE | 2022-11-07 12:20 | Diagnostic Imaging Report ---
INDICATION: Right arm pain and swelling. COMPARISON: None available. TECHNIQUE: Right upper extremity venous Doppler ultrasound performed on 11/07/2022. FINDINGS: Normal flow, compression, and augmentation within the visualized deep venous structures of the right upper extremity. Additionally, normal flow and augmentation within the right subclavian and axillary veins. Normal flow, compression, and augmentation within the right jugular vein. IMPRESSION: No evidence of deep venous thrombosis within the right upper extremity. Dictated by: Dictated on workstation # [id number]
[2022-11-07 12:43] VITALS: BP 155/106
== END 2022-11-07 12:43 | disposition home or self-care (01) ==
LOC: EDUNIT# 10:40 → ER 10:44
DX: M25.521 Pain in right elbow (principal); I44.0 Atrioventricular block, first degree; M25.511 Pain in right shoulder; M79.641 Pain in right hand; M54.2 Cervicalgia; M79.89 Other specified soft tissue disorders; E66.01 Morbid (severe) obesity due to excess calories; F17.210 Nicotine dependence, cigarettes, uncomplicated; Z68.42 Body mass index [BMI] 45.0-49.9, adult; Z28.310 Unvaccinated for COVID-19
CPT/HCPCS: 36415; 71045; 80053; 84484; 85025; 85652; 86141; 93005

== ENCOUNTER → 2022-11-10 | Outpatient (CLI) | payer MEDICARE, MEDICAID ==
--- NOTE | 2022-11-10 16:34 | Diagnostic Imaging Report ---
INDICATION: Bilateral upper extremity radiculopathy. COMPARISON: None FINDINGS: Frontal, lateral, and odontoid views of the cervical spine were submitted. The cervical spine is visualized up to the C7/T1 level on the lateral projection. There is normal vertebral height and alignment. There is no evidence of fracture or bone destruction. No prevertebral soft tissue swelling is seen. Mild multilevel degenerative changes are noted. The open-mouth view demonstrates normal C1/C2 alignment. IMPRESSION: 1. Mild multilevel degenerative changes. Otherwise, unremarkable Cervical spine series. Dictated by: Dictated on workstation # [id number]
== END ==
LOC: RAD 15:37
PROVIDERS: ATTEND Family Medicine
DX: M47.22 Other spondylosis with radiculopathy, cervical region (principal)
CPT/HCPCS: 72040

== ENCOUNTER 2022-12-02 09:54 | Outpatient (RCR) | payer MEDICARE, MEDICAID | END 2022-12-04 | disposition home or self-care (01) | PROVIDERS: ATTEND Family Medicine | DX: M54.2 Cervicalgia (principal); I10 Essential (primary) hypertension; E11.9 Type 2 diabetes mellitus without complications ==